=== PATIENT | male | born 1950 | race Caucasian/White ===

== ENCOUNTER 2016-07-18 16:42 | Inpatient (IN) | payer MEDICARE, MEDICAID ==
--- NOTE | 2016-07-18 17:42 | ED Physician Chart ---
Chief Complaint/HPI - Patient Information Date Seen:: 07/18/16 Time Seen:: 17:30 Chief Complaint:: G-tube malfunction History of Present Illness:: [facility]. Allergies:: Allergies Allergy/AdvReac Type Severity Reaction Status Date / Time MDX No Known Allergies - Nka Allergy Verified 05/19/15 14:04 [No Known Allergies - Nka] Historian:: Other (transfer form) Review:: Nurse's Note Reviewed, Transfer documents Reviewed Review of Systems - Review of Systems General/Constitutional: No fever, No chills Skin: No skin lesions Head: No headache Eyes: No loss of vision ENT: No earache Neck: No neck pain, No swelling Cardio Vascular: No chest pain, No palpitations Pulmonary: No SOB GI: No nausea, No vomiting Musculoskeletal: No bone or joint pain Endocrine: No polyuria, No polydipsia Psychiatric: Prior psych history Hematopoietic: No bruising, No lymphadenopathy Allergic/Immuno: No urticaria, No angioedema Neurological: No syncope, No focal symptoms, No headache Past Medical History - Past Medical History Past Medical History: Seizures, Thyroid disorder, Dementia, Other (status post pneumonia; schizophrenia; mild intellectual disability; dementia; anxiety; chronic atrial fibrillation; Parkinson's disease) Family History: Other (unavailable) Social History: Care Facility Surgical History: PEG/GTube, other (pacemaker) Psychiatricy History: Schizophrenia Family Medical History - Family Member Mother History Unknown: Yes Physical Exam - Physical Examination General/Constitutional: No distress Other Gen/Cons comments:: Nonverbal; chronically ill-appearing Head: Atraumatic Eyes: Lids, conjuctiva normal, PERRL Skin: Nl inspection, No rash, No skin lesions, No ecchymosis ENMT: External ears, nose nl, Oropharynx nl Neck: No nuchal rigidity Respiratory: Nl effort/Exclusion, Clear to Auscultation Other Respiratory comments:: Some episodes of coughing Cardio Vascular: RRR, No murmur, gallop, rubs, NL S1 S2 GI: No tenderness/rebounding/guarding Other GI comments:: Abdomen protuberant Extremities: No edema, Normal digits & nails Other Extremities comments:: Tremors both upper extremities Neuro/Psych: No focal deficits Misc: Normal back Labs/Radiology/EKG Results - Lab Results Results: Laboratory Results - last 24 hr 07/18/16 18:02 Valproic Acid 37.0 L Laboratory Results - last 24 hr 07/18/16 07/18/16 07/18/16 18:02 18:02 18:02 WBC 6.5 D RBC 4.59 Hgb 13.8 Hct 41.0 MCV 89.4 MCH 30.0 MCHC Differential 33.6 RDW 13.5 Plt Count 293 D MPV 9.8 Neutrophils % 81.8 H Lymphocytes % 12.6 L Monocytes % 5.3 Eosinophils % 0.2 Basophils % 0.1 PT INR PTT (Actin FS) Sodium 137 Potassium 3.6 Chloride 101 Carbon Dioxide 31.4 H Anion Gap 8.2 BUN 32 H Creatinine 0.5 L Est GFR ( Amer) > 60.0 Est GFR (Non-Af Amer) > 60.0 BUN/Creatinine Ratio 64.0 Glucose 135 H Calcium 8.5 L Valproic Acid 37.0 L 07/18/16 18:02 WBC RBC Hgb Hct MCV MCH MCHC Differential RDW Plt Count MPV Neutrophils % Lymphocytes % Monocytes % Eosinophils % Basophils % PT 11.8 H INR 1.12 PTT (Actin FS) 33.1 Sodium Potassium Chloride Carbon Dioxide Anion Gap BUN Creatinine Est GFR ( Amer) Est GFR (Non-Af Amer) BUN/Creatinine Ratio Glucose Calcium Valproic Acid - Radiology Results Results: KUB and chest x-ray both normal ED Septic Shock - . Is Septic Shock (SBP<90, OR Lactate>4 mmol\L) present?: No Reassessment (Disposition) - Reassessment Reassessment Condition:: Improved - Diagnosis Diagnosis:: G-tube cellulitis; paranoid schizophrenia; dementia - Patient Disposition Admitted to:: Med/Surg Spoke to:: Pierre Griffin Admitting Medical Physician:: Pierre Griffin Condition at Disposition:: Stable, Unchanged ED Discharge Plan - Patient Disposition Admit/Discharge/Transfer: Acute Care w/in this hosp Condition at Disposition: Stable
[2016-07-18 19:36] LABS: % BASOPHILS 0.1 % (0.0-2.0); % EOSINOPHILS 0.2 % (0.0-5.0); % LYMPHOCYTES 12.6 % (20.0-50.0); % MONOCYTES 5.3 % (2.0-10.0); % NEUTROPHILS 81.8 % (40.0-80.0); HEMOGLOBIN 13.8 gm/dL (13.2-17.3); MEAN CELL VOLUME 89.4 fl (80-99); MEAN CORPUSCULAR HGB CONC 33.6 pg (28.0-36.0); MEAN PLATELET VOLUME 9.8 fl; NEUTROPHILE ABSOLUTE 5.4 Th/cmm (1.8-8.0); RED BLOOD COUNT 4.59 Mil/cmm (4.30-5.70); RED CELL DISTRIBUTION WIDTH 13.5 % (11.5-20.0)
[2016-07-18 19:44] LABS: INR 1.12 (0.5-1.4); PROTHROMBIN TIME (TEST) 11.8 SECONDS (9.5-11.5)
[2016-07-18 19:45] LABS: ANION GAP 8.2 (7.0-16.0); BUN - UREA NITROGEN 32 mg/dL (7-25); CALCIUM SERUM 8.5 mg/dL (8.6-10.3); CARBON DIOXIDE 31.4 mEq/L (21.0-31.0); CHLORIDE 101 mEq/L (98-107); CREATININE - SERUM 0.5 mg/dL (0.7-1.3); GLUCOSE 135 mg/dL (70-105); POTASSIUM SERUM 3.6 mEq/L (3.5-5.1); SODIUM SERUM 137 mEq/L (136-145)
[2016-07-18 19:47] LABS: PLATELET COUNT 293 Th/cmm (150-400); WHITE BLOOD COUNT 6.5 Th/cmm (4.8-10.8)
[2016-07-18] MEDS ORDERED: Magnesium Hydroxide (MOM) 30 mL UDC GT PRN (21:19)
[2016-07-18] MEDS ORDERED: ACETAMINOPHEN GT PRN (21:19)
[2016-07-18] MEDS ORDERED: Albuterol Nebulizer 2.5mg/3mL IH PRN (21:20)
[2016-07-18] MEDS ORDERED: Ipratropium Neb 0.5 mg/2.5 mL UD IH PRN (21:20)
--- NOTE | 2016-07-18 22:18 | Admit Criteria Form ---
Admit Criteria Forms - Admit Criteria Diagnosis: CELLULITIS Clinical Indications for Admission to Inpatient Care (Place 'X' for any and all applicable criteria): Admission is indicated for ANY ONE of the following(1)(2)(3)(4)(5): [ ]I. Limb-threatening infection [ ]II. High-risk comorbid condition as indicated by ANY ONE of the following: [ ]a) Uncontrolled diabetes (eg, HbA1c greater than 10% (0.1)) [ ]b) Cirrhosis [ ]c) Neutropenia [ ]d) Asplenia [ ]e) Immunosuppression [ ]f) Symptomatic heart failure [ ]III. Failure of outpatient therapy as indicated by ALL of the following: [ ]a) Progression or no improvement after adequate trial (minimum of 48 hours, with longer period for stable lower extremity infection) [ ]b) Adequate antibiotic regimen as indicated by use of ANY ONE of the following: [ ]i) First-generation cephalosporin (e.g., cephalexin) [ ]ii) Antistaphylococcal penicillin (e.g., dicloxacillin) [ ]iii) Penicillin-allergic patient regimen (clindamycin, extended-spectrum fluoroquinolone, or doxycycline) [ ]iv) Resistant organism (eg, methicillin-resistant Staphylococcus aureus) regimen (6) [ ]c) Outpatient intravenous therapy regimen is not appropriate due to ANY ONE of the following. (7)(8)(9)(10): [ ]i) It was tried and was not successful (eg, progression of infection). [ ]ii) It is not available or cannot be arranged in a clinically appropriate time frame (e.g., the next day). [ ]iii) Clinical presentation (eg, acuity of infection, rapidity of progression, confirmed or suspected bacteremia) is judged to require ALL of the following: [ ]1) Immediate initiation of intravenous therapy ( eg, cannot wait for next day) [ ]2) Intensity of patient monitoring and observation (eg, vital sign measurement, checks for infection progression) that cannot be provided at other than inpatient level of care [ ]IV. Mental status changes [ ]V. Bacteremia [ ]. Hemodynamic instability [ ]VII. Suspected necrotizing soft tissue infection (e.g., gas in tissue)(11)( 12) [ ]VIII. Orbital infection (13)(14) [ ]IX. Associated surgical procedure (e.g., abscess drainage, debridement) not amenable to outpatient, emergency department, or observation care [ ]X. Cutaneous gangrene [ ]XI. High fever (temperature greater than 39.5 degrees C (103.1 degrees F) (oral)) not responsive to outpatient, emergency department, or observation care therapy [X]XIII. Inpatient admission required rather than observation care (Also use Cellulitis: Observation Care as appropriate) because of ANY ONE of the following : [ ]a) Periorbital or perineal infection that is severe or worsening [ ]b) Severe pain requiring acute inpatient management [ ]c) IV fluid to replace significant ongoing (e.g., for over 24 hours) losses (greater than 3L/m2 per day) [ ]d) Compartment syndrome monitoring (17) [ ]e) Strict or protective (eg, laminar flow) isolation [ ]f) Urgent debridement or skin grafting [ ]g) Bone or joint debridement [ ]h) Immediate inpatient surgery [X]i) Other condition, treatment or monitoring requiring inpatient admission Extended stay beyond goal length of stay may be needed for (1)(18): [ ]a) Necrotizing soft tissue infection or fasciitis [ ]b) Gram-negative infection [ ]c) Methicillin-resistant Staphylococcal aureus (MRSA) infection [ ]d) Peripheral venous insufficiency with cellulitis [ ]e) Extensive edema [ ]f) Sepsis or continued Hemodynamic instability [ ]g) Continued high fever or mental status change [ ]h) Bacteremia [ ]i) Active serious comorbid conditions ( eg, heart failure, renal insufficiency) The original [facility] [employer] content created by [facility] [employer] has been revised. The portions of the content which have been revised are identified through the use of italic text or in bold, and [facility] has neither reviewed nor approved the modified material. All other unmodified content is copyright [facility] Please see references footnoted in the original [facility] edition 2016 Admit Criteria Met?: Yes
[2016-07-19] MEDS: Ampicillin Sodium/Sulbactam 3 GM in Sodium Chloride 0.9% 100 ML IV SCH ×5 (00:20→23:25)
[2016-07-19] MEDS: D5-0.45NS 1,000 ML IV SCH ×2 (00:20→17:51)
[2016-07-19] MEDS: Dextromethorphan/Quinidine 20mg/10mg Cap PO SCH ×3 (01:44→17:41)
[2016-07-19] MEDS: Morphine Sulfate 2 mg/mL 1mL Syr IVP PRN (04:24)
[2016-07-19] MEDS ORDERED: Dextromethorphan/Quinidine 20mg/10mg Cap PO SCH (09:00)
--- NOTE | 2016-07-19 09:43 | Diagnostic Imaging Report ---
CHEST X-RAY: AP view INDICATION: Cough COMPARISON: 05/23/2015 FINDINGS: Left chest wall pacemaker is stable. Increased bibasilar lung markings are noted. No focal consolidation or definite effusions. Cardiomegaly is noted. The osseous structures are intact. IMPRESSION: Increased bibasilar lung markings which may due to atelectasis. Underlying infiltrate is less likely. Clinical correlation is recommended. Cardiomegaly Stable pacemaker.
--- NOTE | 2016-07-19 09:45 | Diagnostic Imaging Report ---
KUB History: Abdominal pain Comparison: None Findings: Gas-filled loops of bowel are noted with distal fecal impaction. A percutaneous feeding tube is noted. Degenerative changes of the spine are noted. IMPRESSION: Distal fecal impaction with generalized gas-filled loops of bowel noted proximally.
[2016-07-19] MEDS: Levothyroxine 0.1 Mg Tab GT SCH (09:50)
[2016-07-19] MEDS: Pantoprazole 40 mg EC Tab PO SCH ×2 (09:50→17:41)
[2016-07-19] MEDS: Multivitamin 5 mL UDC GT SCH (09:50)
--- NOTE | 2016-07-19 20:08 | History & Physical ---
ADMIT DATE: 07/19/2016 CHIEF COMPLAINT: G-tube redness and malfunction. HISTORY OF PRESENT ILLNESS: This is a 66-year-old male with history of partial dementia, hypertension, hypothyroidism, paroxysmal atrial fibrillation, status post pacemaker, history of stroke, was admitted from nursing facility secondary to malfunctioning G-tube. The patient was evaluated in the ER. There is pus coming out from the G-tube area with redness. The patient was diagnosed with cellulitis and admitted for further management. PAST MEDICAL HISTORY: As mentioned in history present illness. PAST SURGICAL HISTORY: Status post pacemaker and G-tube placement. ALLERGIES: No known drug allergies. MEDICATIONS: The patient is on Tylenol, ascorbic acid, BuSpar, Sinemet, Nuedexta, ____, Synthroid, magnesium ____, Depakote. FAMILY HISTORY: Noncontributory. SOCIAL HISTORY: The patient is a longterm patient requiring 24-hour total care. REVIEW OF SYSTEMS: This is limited secondary to pain ____ we will try to obtain more detailed review of systems at a later date by talking to family members ____ service desk analyst [phone]. There is a niece [phone]. I will also try to get information from the nursing staff at ____ [facility], as well as from Dr. Gale who normally follows the patient. PHYSICAL EXAMINATION: VITAL SIGNS: Blood pressure 129/73, respirations 19, pulse 91, and temperature is 97.3. GENERAL: Elderly male, appears stated age, morbidly obese. NECK: Supple. No mass. LUNGS: Equal breath sounds, few rhonchi. HEART: Regular rhythm without appreciable murmurs. ABDOMEN: Soft, nontender, and globular. EXTREMITIES: Positive erythema and G-tube site. NEUROLOGIC: Limited, moving all extremities. LABORATORY DATA: WBC ____, hemoglobin 13, platelets 293. INR 1.12. Sodium 137, potassium 3.6, BUN 35, ____ creatinine 0.5, and blood sugar 135. ASSESSMENT AND PLAN: G-tube cellulitis, dehydration, renal insufficiency, possible pneumonia, dementia, hypertension, hypothyroidism, paroxysmal atrial fibrillation, and history of stroke. We will continue the patient on IV antibiotic and continue IV hydration. GI has been consulted. We will review the patient's chest x-ray which showed possible infiltrate. Continue oxygen and bronchodilator treatment. We will continue to monitor the patient closely. [facility]# [id number]
[2016-07-19] MEDS ORDERED: Diatrizoate Meglumine/Diatri 30 mL Sol ONE (20:20)
[2016-07-20] MEDS: Ampicillin Sodium/Sulbactam 3 GM in Sodium Chloride 0.9% 100 ML IV SCH ×4 (05:34→23:12)
[2016-07-20 06:41] LABS: % BASOPHILS 3.5 % (0.0-2.0); % EOSINOPHILS 0.2 % (0.0-5.0); % LYMPHOCYTES 11.5 % (20.0-50.0); % MONOCYTES 7.1 % (2.0-10.0); % NEUTROPHILS 77.7 % (40.0-80.0); HEMATOCRIT 39.2 % (39.0-49.0); HEMOGLOBIN 13.7 gm/dL (13.2-17.3); MEAN CORPUSCULAR HGB CONC 34.8 pg (28.0-36.0); MEAN PLATELET VOLUME 8.6 fl; NEUTROPHILE ABSOLUTE 6.4 Th/cmm (1.8-8.0); PLATELET COUNT 315 Th/cmm (150-400)
[2016-07-20 07:00] LABS: ALB/GLOB RATIO 0.7 (1.0-1.8); ALKALINE PHOSPHATASE 69 U/L (34-104); ANION GAP 2.8 (7.0-16.0); BILIRUBIN,TOTAL 0.6 mg/dL (0.3-1.0); BUN - UREA NITROGEN 25 mg/dL (7-25); BUN/CREATININE RATIO 62.5; CALCIUM SERUM 7.8 mg/dL (8.6-10.3); CARBON DIOXIDE 33.4 mEq/L (21.0-31.0); CHLORIDE 106 mEq/L (98-107); CREATININE - SERUM 0.4 mg/dL (0.7-1.3); GLUCOSE 149 mg/dL (70-105); MAGNESIUM 2.2 mg/dL (1.9-2.7); POTASSIUM SERUM 3.2 mEq/L (3.5-5.1); SGOT 12 U/L (13-39); SGPT/ALT 5 U/L (7-52); SODIUM SERUM 139 mEq/L (136-145)
[2016-07-20 07:36] LABS: WHITE BLOOD COUNT 8.2 Th/cmm (4.8-10.8)
[2016-07-20] MEDS: Dextromethorphan/Quinidine 20mg/10mg Cap PO SCH ×2 (09:45→16:34)
[2016-07-20] MEDS: Pantoprazole 40 mg EC Tab PO SCH ×2 (09:45→16:33)
[2016-07-20] MEDS: Levothyroxine 0.1 Mg Tab GT SCH (09:47)
[2016-07-20] MEDS: Multivitamin 5 mL UDC GT SCH (10:07)
--- NOTE | 2016-07-20 10:07 | Diagnostic Imaging Report ---
History: Shortness of breath Comparison: 07/18/2016 Findings: Heart size is enlarged. Pacemaker leads present. There is some atelectasis Impression: Cardiomegaly. Slight atelectasis right lower lung zone
--- NOTE | 2016-07-20 10:11 | Diagnostic Imaging Report ---
History: Gastrostomy tube placement Findings: Small noncontrast injected through gastrostomy tube. Contrast fills the stomach and duodenal bulb. Impression: Tip of the gastrostomy tube is intraluminal.
[2016-07-20] MEDS: D5-0.45NS 1,000 ML IV SCH (10:59)
[2016-07-20] MEDS: Morphine Sulfate 2 mg/mL 1mL Syr IVP PRN ×2 (13:45→18:09)
[2016-07-20] MEDS ORDERED: Potassium Chloride 20 mEq ER Tab PO ONE (14:53)
--- NOTE | 2016-07-20 14:55 | Internal Medicine Prog Note ---
Internal Medicine Subjective - Subjective Patient seen and examined:: with staff, chart reviewed Patient is:: asleep, interactive Patient Complaints of:: congestion Per staff patient is:: confused (diarrhea per staff) Internal Medicine Objective - Results Result Diagrams: 07/20/16 06:25 07/20/16 06:25 Recent Labs: Laboratory Last Values WBC 8.2 Th/cmm (4.8-10.8) D 07/20/16 06:25 RBC 4.40 Mil/cmm (4.30-5.70) 07/20/16 06:25 Hgb 13.7 gm/dL (13.2-17.3) 07/20/16 06:25 Hct 39.2 % (39.0-49.0) 07/20/16 06:25 MCV 89.0 fl (80-99) 07/20/16 06:25 MCH 31.0 pg (26.0-30.0) H 07/20/16 06:25 MCHC Differential 34.8 pg (28.0-36.0) 07/20/16 06:25 RDW 14.0 % (11.5-20.0) 07/20/16 06:25 Plt Count 315 Th/cmm (150-400) 07/20/16 06:25 MPV 8.6 fl 07/20/16 06:25 Neutrophils % 77.7 % (40.0-80.0) 07/20/16 06:25 Lymphocytes % 11.5 % (20.0-50.0) L 07/20/16 06:25 Monocytes % 7.1 % (2.0-10.0) 07/20/16 06:25 Eosinophils % 0.2 % (0.0-5.0) 07/20/16 06:25 Basophils % 3.5 % (0.0-2.0) H 07/20/16 06:25 PT 11.8 SECONDS (9.5-11.5) H 07/18/16 18:02 INR 1.12 (0.5-1.4) 07/18/16 18:02 PTT (Actin FS) 33.1 SECONDS (26.0-38.0) 07/18/16 18:02 Sodium 139 mEq/L (136-145) 07/20/16 06:25 Potassium 3.2 mEq/L (3.5-5.1) L 07/20/16 06:25 Chloride 106 mEq/L (98-107) 07/20/16 06:25 Carbon Dioxide 33.4 mEq/L (21.0-31.0) H 07/20/16 06:25 Anion Gap 2.8 (7.0-16.0) L 07/20/16 06:25 BUN 25 mg/dL (7-25) 07/20/16 06:25 Creatinine 0.4 mg/dL (0.7-1.3) L 07/20/16 06:25 Est GFR ( Amer) > 60.0 ml/min (>90) 07/20/16 06:25 Est GFR (Non-Af Amer) > 60.0 ml/min 07/20/16 06:25 BUN/Creatinine Ratio 62.5 07/20/16 06:25 Glucose 149 mg/dL (70-105) H 07/20/16 06:25 Calcium 7.8 mg/dL (8.6-10.3) L 07/20/16 06:25 Magnesium 2.2 mg/dL (1.9-2.7) 07/20/16 06:25 Total Bilirubin 0.6 mg/dL (0.3-1.0) 07/20/16 06:25 AST 12 U/L (13-39) L 07/20/16 06:25 ALT 5 U/L (7-52) L 07/20/16 06:25 Alkaline Phosphatase 69 U/L (34-104) 07/20/16 06:25 Ammonia 52 umol/L (16-53) 07/20/16 06:25 Total Protein 5.3 gm/dL (6.0-8.3) L 07/20/16 06:25 Albumin 2.1 gm/dL (4.2-5.5) L 07/20/16 06:25 Globulin 3.2 gm/dL 07/20/16 06:25 Albumin/Globulin Ratio 0.7 (1.0-1.8) L 07/20/16 06:25 Valproic Acid 37.0 ug/mL (50.0-100.0) L 07/18/16 18:02 - Physical Exam Vitals and I&O: Vital Signs Temp 97.3 F 07/20/16 08:00 Pulse 97 07/20/16 08:05 Resp 18 07/20/16 08:05 BP 126/66 07/20/16 08:00 Pulse Ox 93 07/20/16 08:05 Intake & Output 07/19/16 07/20/16 07/20/16 18:59 06:59 18:59 Intake Total 1300 1815 Output Total 1 Balance 1300 1814 Intake: Intake, IV Amount 1300 1200 Ampicillin Sodium/ 300 200 Sulbactam 3 gm In Sodium Chloride 0.9% 100 ml @ 100 mls/hr IV Q6HR [facility] Rx #:[id number] D5-0.45NS 1,000 ml @ 80 1000 1000 mls/hr IV .[id number] [facility] Rx #:[id number] Oral 0 Tube Feeding 515 Other 100 Output: Urine/Stool Mix 1 Other: # Voids 2 # Bowel Movements 1 Stool Characteristics Liquid Liquid Liquid Brown Brown Brown Active Medications: Current Medications Acetaminophen (Tylenol 650mg/20.3ml Suspension) 650 mg GT Q4H PRN PRN Reason: PAIN OR TEMP > 101.0 Last Admin: 07/20/16 02:33 Dose: 650 mg Albuterol Sulfate (Albuterol 2.5mg/3ml Neb Ud) 2.5 mg IH Q2HR PRN PRN Reason: Shortness of Breath or Wheeze Stop: 09/16/16 21:19 Ascorbic Acid (Vitamin C) 500 mg GT DAILY [facility] Stop: 09/17/16 08:59 Last Admin: 07/20/16 09:45 Dose: 500 mg Buspirone HCl (Buspar) 10 mg GT BID [facility] Stop: 09/17/16 08:59 Last Admin: 07/20/16 09:44 Dose: 10 mg Carbidopa/Levodopa (Sinemet 25mg-100 Mg) 2 tab GT TID [facility] Stop: 09/17/16 08:59 Last Admin: 07/20/16 13:29 Dose: 2 tab Dextromethorphan/Quinidine (Nuedexta 20mg-10mg) 1 cap PO BID [facility] Stop: 09/17/16 01:59 Last Admin: 07/20/16 09:45 Dose: 1 cap Fludrocortisone Acetate (Florinef) 0.1 mg GT DAILY [facility] Stop: 09/17/16 08:59 Last Admin: 07/20/16 09:45 Dose: 0.1 mg Heparin Sodium (Porcine) (Heparin) 5,000 units SUBQ Q12HR [facility]ILI Stop: 09/17/16 08:59 Last Admin: 07/19/16 22:27 Dose: 5,000 units Dextrose/Sodium Chloride (D5-0.45ns) 1,000 mls @ 80 mls/hr IV .[id number] LILI Stop: 09/16/16 21:29 Last Admin: 07/20/16 10:59 Dose: 80 mls/hr Ampicillin Sodium/Sulbactam (Sodium 3 gm/ Sodium Chloride) 100 mls @ 100 mls/ hr IV Q6HR LILI Stop: 09/17/16 00:00 Last Admin: 07/20/16 11:57 Dose: 100 mls/hr Ipratropium [place] (Atrovent Neb 0.5mg/2.5ml) 0.5 mg IH Q2HR PRN PRN Reason: Shortness of Breath or Wheeze Stop: 09/16/16 21:19 Levothyroxine Sodium (Synthroid) 0.1 mg GT DAILY [facility] Stop: 09/17/16 08:59 Last Admin: 07/20/16 09:47 Dose: 0.1 mg Magnesium Hydroxide (Milk Of Magnesia) 30 ml GT HS PRN PRN Reason: Constipation Stop: 09/16/16 21:18 Morphine Sulfate (Morphine) 2 mg IVP Q4HR PRN PRN Reason: Pain (Severe) Stop: 09/16/16 21:19 Last Admin: 07/20/16 13:45 Dose: 2 mg Multivitamins/Vitamin C (Theragran) 5 ml GT DAILY [facility] Stop: 09/17/16 08:59 Last Admin: 07/20/16 10:07 Dose: Not Given Ondansetron HCl (Zofran) 4 mg IV Q8H PRN PRN Reason: Nausea / Vomiting Stop: 09/16/16 21:19 Pantoprazole Sodium (Protonix) 40 mg PO BID [facility] Stop: 09/17/16 08:59 Last Admin: 07/20/16 09:45 Dose: 40 mg Terazosin HCl (Hytrin) 1 mg GT HS LILI Stop: 09/17/16 20:59 Last Admin: 07/19/16 22:26 Dose: 1 mg Valproate Sodium (Depakene) 750 mg GT BID LILI PRN Reason: Protocol Stop: 09/17/16 08:59 Last Admin: 07/20/16 09:45 Dose: 750 mg General: demented HEENT: NC/AT, PERRLA Neck: Supple, No JVD Lungs: congested Cardiovascular: RRR, Normal S1, Normal S2 Abdomen: soft non-tender, globular, +GT, positive bowel sound Extremities: excoriation, contracture Neurological: unsteady, unable to follow command - Procedures Procedures: Procedures Procedure Code Date CHEST X-RAY NEC 87.49 12/05/[address] GASTROSTOMY TUBE 228[address] 05/19/15 EXTIRPATION OF MATTER FROM STOMACH, ENDO [id number] 05/19/15 INDIVID PSYCHOTHERAP NEC 94.39 05/19/08 INITIAL INSERT OF SING CHAMB DEV, RATE RESPONSIVE 37.82 12/05/08 INITIAL INSERT OF TRANS. LEADS INTO VENTRICLE 37.71 12/05/08 INSERT HEART PM VENTRICULAR 04596 12/05/08 INSERTION OF FEEDING DEVICE INTO STOMACH, ENDO [id number] 05/19/15 OTHER GROUP THERAPY 94.44 02/13/11 PERCUTANEOUS [ENDOSCOPIC] GASTROSTOMY [PEG] 43.11 10/03/13 RECREATIONAL THERAPY 93.81 02/13/11 VENOUS CUTDOWN 38.94 12/05/08 X-RAY & PACEMAKER INSERTION [id number] 12/05/08 Internal Medicine Assmt/Plan - Assessment Assessment: gt cellulitis dehydration ri poss pnm cva htn pafib - Plan Plan: cont on iv richard will check culture cont on iv hydration cpm dw rn see orders Nutritional Asmnt/Malnutr-PDOC - Dietary Evaluation Malnutrition Findings (Please click <Entered> for more info): Nutritional Asmnt/Malnutrition Start: 07/19/16 14: 00 Text: Status: Complete Freq: Document 07/19/16 14:00 GSUN (Rec: 07/19/16 14:12 MARCE [id number]) Nutritional Asmnt/Malnutrition Patient General Information Nutritional Screening High Risk Screening Diagnosis ER: g-tube malfunction, g-tube cellulitis Pertinent Medical Hx/Surgical Hx ER: seizures, thyroid disorder , dementia Parkinson's, hx pneumonia, schizophrenia, mild intellectual disability, anxiety, chronic atrial fibrillation Subjective Information 66 year old male from SNF. Pt was resting with eyes closed, smiled at RD upon name call, non-verbal. [facility]: Jevity 1.2 at 65ml/ hr x 20hrs, providing 1560kcal . No sifnigicant wasting noted . GI consult pending. Current Diet Order/ Nutrition Support NPO Pertinent Medications Vitamin C D5, Synthroid, MOM, Morphine, Theragran, Zofran, Protonix Pertinent Labs 07/18: glucose 135H Nutritional Hx/Data Height 1.73 m Height (Calculated Centimeters) 172.7 Current Weight (lbs) 102.058 kg Weight (Calculated Kilograms) 102.1 Weight (Calculated Grams) 257804.3 [place] Body Weight 154 Weight Status Obese GI Symptoms Skin Integrity/Comment: Dileep 13. Skin intact. Estimated Nutritional Goals Calories/Kcals/Kg IBW 154lb/70kg Kcals Calculated 1750-2100kcal (25-30kcal/kg) Protein g/kg: IBW Protein Calculated 70g (1g/kg) Fluid: ml 1750-2100ml (1ml/kcal) Nutritional Problem 1. Problem Problem Inadequate intake from enternal nutrition infusion related to Etiology g-tube malfunction aeb Signs/Symptoms: currently NPO, GI consult pending Intervention/Recommendation Comments 1. When g-tube intact to resume feeding, recommend Fiebrsource 60ml/hrs x 24hrs, providing 1728kcal, 78g protein, 1164ml free water. Water flush 150ml q6hrs. Expected Outcomes/Goals Expected Outcomes/Goals 1. Pt to meet at least 100% of lower end of estimated nutritional needs on tube feeding with tolerance.
--- NOTE | 2016-07-20 23:41 | Consultation ---
DATE OF CONSULTATION: 07/19/2016 GASTROINTESTINAL CONSULTATION REASON FOR CONSULTATION: PEG tube malfunction, fecal impaction. HISTORY OF PRESENT ILLNESS: A 66-year-old male with past medical history significant for seizures, dementia, dysphagia with prior PEG, MR, AFib, and Parkinson's, who presents from his nursing facility with malfunctioning G-tube, appears the external tubing has been leaking, subsequently is not being used currently. The patient also noted on imaging to have evidence of fecal impaction as well. PAST MEDICAL HISTORY: As per HPI. PAST SURGICAL HISTORY: Prior PEG placement and pacemaker. SOCIAL HISTORY: The patient is from long-term care facility. No recent tobacco, alcohol, or drugs. FAMILY HISTORY: Unknown. REVIEW OF SYSTEMS: Unable to obtain currently given the patient's mental status. PHYSICAL EXAMINATION: VITAL SIGNS: Temperature is 98, pulse is 95, respirations 18, blood pressure 122/69. GENERAL: In no acute distress. CARDIOVASCULAR: Regular rate and rhythm. ABDOMEN: Appears G-tube is intact. The external tubing appears cracked. Soft. LABORATORY DATA: White count 6.5, hemoglobin 13.8, platelets are 293. INR is 1.12. IMAGING: The patient had a KUB that shows gas filled loops with distal fecal impaction. G-tube is noted. ASSESSMENT AND PLAN: This is a 66-year-old male with history of underlying Parkinson's, dementia, MR, seizure disorder, atrial fibrillation, here with malfunctioning of the G-tube and fecal impaction, G-tube was replaced at bedside today. We will check a repeat KUB with Gastrografin to confirm the location of G-tube. If adequate can start ____ feedings. For fecal impaction, would give MiraLax through the G-tube and consider enema as well. Thank you for this consult and allowing us to participate in the care of this patient. JOB# [id number]
[2016-07-21] MEDS: Ampicillin Sodium/Sulbactam 3 GM in Sodium Chloride 0.9% 100 ML IV SCH ×4 (05:27→23:27)
[2016-07-21] MEDS: Levothyroxine 0.1 Mg Tab GT SCH (09:36)
[2016-07-21] MEDS: Pantoprazole 40 mg EC Tab PO SCH ×2 (09:36→16:56)
[2016-07-21] MEDS: Dextromethorphan/Quinidine 20mg/10mg Cap PO SCH ×2 (09:36→16:56)
[2016-07-21] MEDS: Multivitamin 5 mL UDC GT SCH (11:26)
--- NOTE | 2016-07-21 22:01 | Internal Medicine Prog Note ---
Internal Medicine Subjective - Subjective Patient seen and examined:: with staff, chart reviewed Patient is:: awake, verbal, interactive Per staff patient is:: no adverse event, confused Internal Medicine Objective - Results Result Diagrams: 07/20/16 06:25 07/20/16 06:25 Recent Labs: Laboratory Last Values WBC 8.2 Th/cmm (4.8-10.8) D 07/20/16 06:25 RBC 4.40 Mil/cmm (4.30-5.70) 07/20/16 06:25 Hgb 13.7 gm/dL (13.2-17.3) 07/20/16 06:25 Hct 39.2 % (39.0-49.0) 07/20/16 06:25 MCV 89.0 fl (80-99) 07/20/16 06:25 MCH 31.0 pg (26.0-30.0) H 07/20/16 06:25 MCHC Differential 34.8 pg (28.0-36.0) 07/20/16 06:25 RDW 14.0 % (11.5-20.0) 07/20/16 06:25 Plt Count 315 Th/cmm (150-400) 07/20/16 06:25 MPV 8.6 fl 07/20/16 06:25 Neutrophils % 77.7 % (40.0-80.0) 07/20/16 06:25 Lymphocytes % 11.5 % (20.0-50.0) L 07/20/16 06:25 Monocytes % 7.1 % (2.0-10.0) 07/20/16 06:25 Eosinophils % 0.2 % (0.0-5.0) 07/20/16 06:25 Basophils % 3.5 % (0.0-2.0) H 07/20/16 06:25 PT 11.8 SECONDS (9.5-11.5) H 07/18/16 18:02 INR 1.12 (0.5-1.4) 07/18/16 18:02 PTT (Actin FS) 33.1 SECONDS (26.0-38.0) 07/18/16 18:02 Sodium 139 mEq/L (136-145) 07/20/16 06:25 Potassium 3.2 mEq/L (3.5-5.1) L 07/20/16 06:25 Chloride 106 mEq/L (98-107) 07/20/16 06:25 Carbon Dioxide 33.4 mEq/L (21.0-31.0) H 07/20/16 06:25 Anion Gap 2.8 (7.0-16.0) L 07/20/16 06:25 BUN 25 mg/dL (7-25) 07/20/16 06:25 Creatinine 0.4 mg/dL (0.7-1.3) L 07/20/16 06:25 Est GFR ( Amer) > 60.0 ml/min (>90) 07/20/16 06:25 Est GFR (Non-Af Amer) > 60.0 ml/min 07/20/16 06:25 BUN/Creatinine Ratio 62.5 07/20/16 06:25 Glucose 149 mg/dL (70-105) H 07/20/16 06:25 Calcium 7.8 mg/dL (8.6-10.3) L 07/20/16 06:25 Magnesium 2.2 mg/dL (1.9-2.7) 07/20/16 06:25 Total Bilirubin 0.6 mg/dL (0.3-1.0) 07/20/16 06:25 AST 12 U/L (13-39) L 07/20/16 06:25 ALT 5 U/L (7-52) L 07/20/16 06:25 Alkaline Phosphatase 69 U/L (34-104) 07/20/16 06:25 Ammonia 52 umol/L (16-53) 07/20/16 06:25 Total Protein 5.3 gm/dL (6.0-8.3) L 07/20/16 06:25 Albumin 2.1 gm/dL (4.2-5.5) L 07/20/16 06:25 Globulin 3.2 gm/dL 07/20/16 06:25 Albumin/Globulin Ratio 0.7 (1.0-1.8) L 07/20/16 06:25 Valproic Acid 37.0 ug/mL (50.0-100.0) L 07/18/16 18:02 - Physical Exam Vitals and I&O: Vital Signs Temp 97.5 F 07/21/16 20:00 Pulse 114 07/21/16 20:54 Resp 18 07/21/16 20:00 BP 112/89 07/21/16 20:54 Pulse Ox 95 07/21/16 20:00 Intake & Output 07/21/16 07/21/16 07/22/16 06:59 18:59 06:59 Intake Total 580 880 Balance 580 880 Intake: Intake, IV Amount 200 100 Ampicillin Sodium/ 200 100 Sulbactam 3 gm In Sodium Chloride 0.9% 100 ml @ 100 mls/hr IV Q6HR [facility] Rx #:[id number] Oral 0 Tube Feeding 280 480 Other 100 300 Other: # Voids 2 4 # Bowel Movements 2 1 Stool Characteristics Liquid Liquid Liquid Brown Brown Brown Active Medications: Current Medications Acetaminophen (Tylenol 650mg/20.3ml Suspension) 650 mg GT Q4H PRN PRN Reason: PAIN OR TEMP > 101.0 Last Admin: 07/20/16 23:11 Dose: 650 mg Albuterol Sulfate (Albuterol 2.5mg/3ml Neb Ud) 2.5 mg IH Q2HR PRN PRN Reason: Shortness of Breath or Wheeze Stop: 09/16/16 21:19 Ascorbic Acid (Vitamin C) 500 mg GT DAILY [facility] Stop: 09/17/16 08:59 Last Admin: 07/21/16 09:35 Dose: 500 mg Buspirone HCl (Buspar) 10 mg GT BID [facility] Stop: 09/17/16 08:59 Last Admin: 07/21/16 16:56 Dose: 10 mg Carbidopa/Levodopa (Sinemet 25mg-100 Mg) 2 tab GT TID [facility] Stop: 09/17/16 08:59 Last Admin: 07/21/16 20:54 Dose: 2 tab Dextromethorphan/Quinidine (Nuedexta 20mg-10mg) 1 cap PO BID [facility] Stop: 09/17/16 01:59 Last Admin: 07/21/16 16:56 Dose: 1 cap Fludrocortisone Acetate (Florinef) 0.1 mg GT DAILY [facility] Stop: 09/17/16 08:59 Last Admin: 07/21/16 09:36 Dose: 0.1 mg Ampicillin Sodium/Sulbactam (Sodium 3 gm/ Sodium Chloride) 100 mls @ 100 mls/ hr IV Q6HR [facility] Stop: 09/17/16 00:00 Last Admin: 07/21/16 19:03 Dose: 100 mls/hr Ipratropium [place] (Atrovent Neb 0.5mg/2.5ml) 0.5 mg IH Q2HR PRN PRN Reason: Shortness of Breath or Wheeze Stop: 09/16/16 21:19 Levothyroxine Sodium (Synthroid) 0.1 mg GT DAILY [facility] Stop: 09/17/16 08:59 Last Admin: 07/21/16 09:36 Dose: 0.1 mg Loperamide HCl (Imodium) 4 mg PO DAILY PRN PRN Reason: Diarrhea Stop: 09/18/16 14:51 Last Admin: 07/20/16 16:34 Dose: 4 mg Magnesium Hydroxide (Milk Of Magnesia) 30 ml GT HS PRN PRN Reason: Constipation Stop: 09/16/16 21:18 Morphine Sulfate (Morphine) 2 mg IVP Q4HR PRN PRN Reason: Pain (Severe) Stop: 09/16/16 21:19 Last Admin: 07/20/16 18:09 Dose: 2 mg Multivitamins/Vitamin C (Theragran) 5 ml GT DAILY [facility] Stop: 09/17/16 08:59 Last Admin: 07/21/16 11:26 Dose: Not Given Ondansetron HCl (Zofran) 4 mg IV Q8H PRN PRN Reason: Nausea / Vomiting Stop: 09/16/16 21:19 Pantoprazole Sodium (Protonix) 40 mg PO BID [facility] Stop: 09/17/16 08:59 Last Admin: 07/21/16 16:56 Dose: 40 mg Terazosin HCl (Hytrin) 1 mg GT HS [facility] Stop: 09/17/16 20:59 Last Admin: 07/21/16 20:54 Dose: 1 mg Valproate Sodium (Depakene) 750 mg GT BID [facility] PRN Reason: Protocol Stop: 09/17/16 08:59 Last Admin: 07/21/16 16:56 Dose: 750 mg General: lethargic HEENT: NC/AT, PERRLA Neck: Supple, No JVD Lungs: congested Cardiovascular: RRR, Normal S1, Normal S2 Abdomen: globular, +GT, positive bowel sound Extremities: excoriation Neurological: no change, lethargic - Procedures Procedures: Procedures Procedure Code Date CHEST X-RAY NEC 87.49 12/05/[address] GASTROSTOMY TUBE 33341 05/19/15 EXTIRPATION OF MATTER FROM STOMACH, ENDO [id number] 05/19/15 INDIVID PSYCHOTHERAP NEC 94.39 05/19/08 INITIAL INSERT OF SING WALDOB DEV, RATE RESPONSIVE 37.82 12/05/08 INITIAL INSERT OF TRANS. LEADS INTO VENTRICLE 37.71 12/05/08 INSERT HEART PM VENTRICULAR 97931 12/05/08 INSERTION OF FEEDING DEVICE INTO STOMACH, ENDO [id number] 05/19/15 OTHER GROUP THERAPY 94.44 02/13/11 PERCUTANEOUS [ENDOSCOPIC] GASTROSTOMY [PEG] 43.11 10/03/13 RECREATIONAL THERAPY 93.81 02/13/11 VENOUS CUTDOWN 38.94 12/05/08 X-RAY & PACEMAKER INSERTION 16780 12/05/08 Internal Medicine Assmt/Plan - Assessment Assessment: gt cellulitis dehydration ri poss pnm cva htn pafib - Plan Plan: cont on iv richard will check culture cont on iv hydration cpm dw rn see orders Nutritional Asmnt/Malnutr-PDOC - Dietary Evaluation Malnutrition Findings (Please click <Entered> for more info): Nutritional Asmnt/Malnutrition Start: 07/19/16 14: 00 Text: Status: Complete Freq: Document 07/19/16 14:00 GSUN (Rec: 07/19/16 14:12 [id number]) Nutritional Asmnt/Malnutrition Patient General Information Nutritional Screening High Risk Screening Diagnosis ER: g-tube malfunction, g-tube cellulitis Pertinent Medical Hx/Surgical Hx ER: seizures, thyroid disorder , dementia Parkinson's, hx pneumonia, schizophrenia, mild intellectual disability, anxiety, chronic atrial fibrillation Subjective Information 66 year old male from SNF. Pt was resting with eyes closed, smiled at RD upon name call, non-verbal. [facility]: Jevity 1.2 at 65ml/ hr x 20hrs, providing 1560kcal . No sifnigicant wasting noted . GI consult pending. Current Diet Order/ Nutrition Support NPO Pertinent Medications Vitamin C D5, Synthroid, MOM, Morphine, Theragran, Zofran, Protonix Pertinent Labs 07/18: glucose 135H Nutritional Hx/Data Height 1.73 m Height (Calculated Centimeters) 172.7 Current Weight (lbs) 102.058 kg Weight (Calculated Kilograms) 102.1 Weight (Calculated Grams) 867787.3 [place] Body Weight 154 Weight Status Obese GI Symptoms Skin Integrity/Comment: Dileep 13. Skin intact. Estimated Nutritional Goals Calories/Kcals/Kg IBW 154lb/70kg Kcals Calculated 1750-2100kcal (25-30kcal/kg) Protein g/kg: IBW Protein Calculated 70g (1g/kg) Fluid: ml 1750-2100ml (1ml/kcal) Nutritional Problem 1. Problem Problem Inadequate intake from enternal nutrition infusion related to Etiology g-tube malfunction aeb Signs/Symptoms: currently NPO, GI consult pending Intervention/Recommendation Comments 1. When g-tube intact to resume feeding, recommend Fiebrsource 60ml/hrs x 24hrs, providing 1728kcal, 78g protein, 1164ml free water. Water flush 150ml q6hrs. Expected Outcomes/Goals Expected Outcomes/Goals 1. Pt to meet at least 100% of lower end of estimated nutritional needs on tube feeding with tolerance.
[2016-07-21] MEDS: Morphine Sulfate 2 mg/mL 1mL Syr IVP PRN (23:24)
[2016-07-22] MEDS: Ampicillin Sodium/Sulbactam 3 GM in Sodium Chloride 0.9% 100 ML IV SCH ×2 (05:30→12:01)
[2016-07-22 06:17] LABS: % BASOPHILS 3.6 % (0.0-2.0); % EOSINOPHILS 0.4 % (0.0-5.0); % LYMPHOCYTES 14.3 % (20.0-50.0); % MONOCYTES 6.5 % (2.0-10.0); % NEUTROPHILS 75.2 % (40.0-80.0); HEMATOCRIT 38.4 % (39.0-49.0); HEMOGLOBIN 13.1 gm/dL (13.2-17.3); MEAN CELL VOLUME 89.2 fl (80-99); MEAN CORPUSCULAR HEMOGLOBIN 30.4 pg (26.0-30.0); MEAN CORPUSCULAR HGB CONC 34.1 pg (28.0-36.0); MEAN PLATELET VOLUME 7.9 fl; NEUTROPHILE ABSOLUTE 8.5 Th/cmm (1.8-8.0); PLATELET COUNT 358 Th/cmm (150-400); RED BLOOD COUNT 4.31 Mil/cmm (4.30-5.70); RED CELL DISTRIBUTION WIDTH 13.9 % (11.5-20.0)
[2016-07-22 06:37] LABS: ANION GAP 1.4 (7.0-16.0); BUN - UREA NITROGEN 20 mg/dL (7-25); CALCIUM SERUM 7.6 mg/dL (8.6-10.3); CARBON DIOXIDE 36.3 mEq/L (21.0-31.0); CHLORIDE 108 mEq/L (98-107); CREATININE - SERUM 0.4 mg/dL (0.7-1.3); GLUCOSE 131 mg/dL (70-105); MAGNESIUM 2.1 mg/dL (1.9-2.7); POTASSIUM SERUM 3.7 mEq/L (3.5-5.1); SODIUM SERUM 142 mEq/L (136-145)
[2016-07-22 07:12] LABS: WHITE BLOOD COUNT 11.2 Th/cmm (4.8-10.8)
[2016-07-22] MEDS: Pantoprazole 40 mg EC Tab PO SCH (08:23)
[2016-07-22] MEDS: Dextromethorphan/Quinidine 20mg/10mg Cap PO SCH (08:23)
[2016-07-22] MEDS: Levothyroxine 0.1 Mg Tab GT SCH (08:23)
[2016-07-22] MEDS: Multivitamin 5 mL UDC GT SCH (11:07)
[2016-07-22] MEDS ORDERED: Amoxicillin/Clavulanat 875/125 Tab PO SCH (17:00)
--- NOTE | 2016-07-22 20:17 | Discharge Summary ---
DATE OF DISCHARGE: 07/22/2016 CHIEF COMPLAINT: G-tube redness and malfunctioning. FINAL DIAGNOSES: G-tube cellulitis, malfunctioning G-tube, which was replaced, renal insufficiency, dehydration, dementia, hypertension, hypothyroidism, paroxysmal atrial fibrillation, and history of stroke. HISTORY OF PRESENT ILLNESS: This is a 66-year-old male with history of dementia, hypertension, hypothyroidism, paroxysmal atrial fibrillation status post pacemaker, and stroke, who was admitted from nursing facility secondary to pus coming out from the G-tube area. The patient was brought in the ER and admitted for further management. PHYSICAL EXAMINATION: VITAL SIGNS: Blood pressure 123/81, respirations 20, pulse 100, and temperature 96. GENERAL: Elderly male, appears stated age. NECK: Supple. No mass. LUNGS: Equal breath sounds, few rhonchi. HEART: Regular rate and rhythm without appreciable murmurs. ABDOMEN: Soft and nontender. EXTREMITIES: Positive excoriations. NEUROLOGIC: Limited. Pus in G-tube. HOSPITAL COURSE: The patient was admitted to medical floor, continued on IV hydration and IV antibiotic. The patient was referred to Dr. Renee for Gastroenterology. G-tube was replaced at the bedside, placed and Gastrografin. The patient was cleared for discharge. CONDITION ON DISCHARGE: Fair. DISCHARGE INSTRUCTIONS: The patient to continue current medical regimen. The patient will be signed out to Dr. Gale who will be following the patient. JOB# [id number]
[2016-07-23 05:14] LABS: FOLIC ACID 17.6 ng/mL (>3.0)
== END 2016-07-22 14:01 | DRG 393 ==
LOC: ER 16:42 → MSI 20:53
PROVIDERS: ADMIT Internal Medicine; ATTEND Internal Medicine
PROC: 0D20XUZ Change Feeding Device in Upper Intestinal Tract, External Approach (ICD-10-PCS; principal; 2016-07-19)
DX: K94.22 Gastrostomy infection (principal); E43 Unspecified severe protein-calorie malnutrition; G20 Parkinson's disease; F03.90 Unspecified dementia, unspecified severity, without behavioral disturbance, psychotic disturbance, mood disturbance, and anxiety; I48.0 Paroxysmal atrial fibrillation; L03.311 Cellulitis of abdominal wall; E86.0 Dehydration; I10 Essential (primary) hypertension; E03.9 Hypothyroidism, unspecified; F20.9 Schizophrenia, unspecified; F41.9 Anxiety disorder, unspecified; K56.41 Fecal impaction; G40.909 Epilepsy, unspecified, not intractable, without status epilepticus; F79 Unspecified intellectual disabilities; Y83.8 Other surgical procedures as the cause of abnormal reaction of the patient, or of later complication, without mention of misadventure at the time of the procedure; Y92.89 Other specified places as the place of occurrence of the external cause; Z95.0 Presence of cardiac pacemaker; Z86.73 Personal history of transient ischemic attack (TIA), and cerebral infarction without residual deficits
CPT/HCPCS: 36415-UA; 71010-TC; 74000-TC; 80048-TC; 80053-TC; 80164-TC; 82140-TC; 82607-90; 82746-90; 83735-TC; 83880-TC; 85025-TC; 85610-TC; 85730-TC; 94760; J0295; J1644; J2270; J2405; J7030; X7704; Z7610

== ENCOUNTER 2017-11-24 18:57 | Inpatient (IN) | payer MEDICARE, MEDICAID ==
[2017-11-24] MEDS ORDERED: Lactated Ringer 1,000 ML IV ONE (19:36)
[2017-11-24 19:49] LABS: % BASOPHILS 1.2 % (0.0-2.0); % EOSINOPHILS 1.1 % (0.0-5.0); % LYMPHOCYTES 19.7 % (20.0-50.0); BASOPHILE ABSOLUTE 0.1 Th/cumm (0-0.2); EOSINOPHILE ABSOLUTE 0.1 Th/cmm (0.1-0.4); HEMATOCRIT 40.7 % (41.0-60); HEMOGLOBIN 13.7 gm/dL (12-16); LYMPHOCYTE ABSOLUTE 1.6 Th/cmm (1.5-3.0); MEAN CELL VOLUME 90.1 fl (80-99); MEAN CORPUSCULAR HEMOGLOBIN 30.4 pg (27.0-31.0); MEAN CORPUSCULAR HGB CONC 33.7 pg (28.0-36.0); MONOCYTE ABSOLUTE 0.6 Th/cmm (0.3-1.0); NEUTROPHILE ABSOLUTE 5.6 Th/cmm (1.8-8.0); PLATELET COUNT 185 Th/cmm (150-400); RED BLOOD COUNT 4.51 Mil/cmm (3.80-5.80); RED CELL DISTRIBUTION WIDTH 14.3 % (11.5-20.0)
[2017-11-24] MEDS ORDERED: Diatrizoate Meglumine/Diatri 30 mL Sol ONE (19:53)
[2017-11-24 20:07] LABS: ALB/GLOB RATIO 0.8 (1.0-1.8); ALBUMIN 3.3 gm/dL (4.2-5.5); ALKALINE PHOSPHATASE 82 U/L (34-104); ANION GAP 9.9 (7.0-16.0); BILIRUBIN,TOTAL 0.7 mg/dL (0.3-1.0); BUN - UREA NITROGEN 25 mg/dL (7-25); CALCIUM SERUM 9.8 mg/dL (8.6-10.3); CHLORIDE 105 mEq/L (98-107); CREATININE - SERUM 0.6 mg/dL (0.7-1.3); GFR AFRICAN-AMERICAN > 60.0 ml/min (>90); GFR NON AFRICAN-AMERICAN > 60.0 ml/min; GLUCOSE 113 mg/dL (70-105); MAGNESIUM 2.2 mg/dL (1.9-2.7); PHOSPHOROUS 3.9 mg/dL (2.5-5.0); POTASSIUM SERUM 3.9 mEq/L (3.5-5.1); SGOT 20 U/L (13-39); SGPT/ALT 14 U/L (7-52); SODIUM SERUM 141 mEq/L (136-145); TOTAL PROTEIN,SERUM 7.5 gm/dL (6.0-8.3)
--- NOTE | 2017-11-24 22:32 | ED Physician Chart ---
ED Chief Complaint/HPI - Patient Information Date Seen:: 11/24/17 Time Seen:: 18:59 Chief Complaint:: weakness & G tube malfunction History of Present Illness:: weakness & G tube malfunction. Patient is less interactive. He normally interacts with the outside world alot more. He is able to say his name. G tube feedings are usually Jevity 1.5 at 65 cc/hour for 20 hours. Over the weekend, he has had problems with nausea and vomiting to the point where the nurses have had to hold his tube feeds for 2 to 3 hours at a time. Last bowel movement on 11/22/17. Allergies:: Allergies Allergy/AdvReac Type Severity Reaction Status Date / Time No Known Allergies Allergy Verified 08/20/16 22:10 Vitals:: Vital Signs - 8 hr 11/24/17 18:59 Temp 98.1 F HR 130 RR 20 BP 180/90 O2 Sat % 98 Historian:: Medical Records Review:: Nurse's Note Reviewed, Transfer documents Reviewed ED Review of Systems - Review of Systems General/Constitutional: No fever, No chills, No weight loss, No weakness, No diaphoresis, No edema, No loss of appetite Cardio Vascular: No chest pain, No palpitations, No PND, No orthopnea, No edema Pulmonary: SOB GI: Nausea, Vomiting, Constipation G/U: No dysuria, No frequency, No hematuria Musculoskeletal: No bone or joint pain, No back pain, No muscle pain Endocrine: No polyuria, No polydipsia Hematopoietic: No bruising, No lymphadenopathy Allergic/Immuno: No urticaria, No angioedema Neurological: No syncope, No focal symptoms, No weakness, No paresthesia, No headache, No seizure, No dizziness, No confusion, No vertigo ED Past Medical History - Past Medical History Past Medical History: DM, Asthma/COPD, PUD/GERD, Thyroid disorder, Other (g tube ; Parkinson's; epilepsy; atrial fibrillation; cardiac pacemaker; dysphagia, oral pharyngeal phase; anemia ) Psychiatricy History: Depression Family Medical History - Family Member Mother History Unknown: Yes Ethnicity: Unknown Living Status: Unknown Hx Family Cancer: No Hx Family Coronary Artery Disease: No Hx Family Congestive Heart Failure: Yes Hx Family Hypertension: Yes Hx Family Stroke: No Hx Family Diabetes: Yes Hx Family Seizures: No Hx Family Dementia: No Hx Family AIDS: No Hx Family HIV: No Hx Family COPD: No Hx Family Hepatitis: No Hx Family Psychiatric Problems: No Hx Family Tuberculosis: No ED Physical Exam - Physical Examination General/Constitutional: Alert Head: Atraumatic Other Skin comments:: midline scar from prior ventral hernia repair. G tube in place. No cellulitis. Stage I decubitus on sacrum. Other Neck comments:: kyphosis. Other Respiratory comments:: decreased breath sounds in the left lung base more than on the right. Cardio Vascular: RRR, No murmur, gallop, rubs, NL S1 S2 GI: No tenderness/rebounding/guarding, No organomegaly, Normal BS's, Nondistended, No mass/bruits, No McBurney tenderness Other GI comments:: No inguinal hernias present. Other comments:: Large amount of fatty tissue in both groins. Small retracted penis. Other Extremities comments:: fingers are in abnormal positions chronically. Other Neuro/Psych comments:: non verbal. shakes his head no when he doesn't want to be turned. doesn't appear to have control of his BUE or his BLE---spasms. Other Misc comments:: stage I sacral decubitus. ED Labs/Radiology/EKG Results - Lab Results Results: Laboratory Tests 11/24/17 11/24/17 19:40 19:40 WBC 8.0 RBC 4.51 Hgb 13.7 Hct 40.7 L MCV 90.1 MCH 30.4 MCHC Differential 33.7 RDW 14.3 Plt Count 185 MPV 11.0 Neutrophils % 71.0 Lymphocytes % 19.7 L Monocytes % 7.0 Eosinophils % 1.1 Basophils % 1.2 Sodium 141 Potassium 3.9 Chloride 105 Carbon Dioxide 30.0 Anion Gap 9.9 BUN 25 Creatinine 0.6 L Est GFR ( Amer) > 60.0 Est GFR (Non-Af Amer) > 60.0 BUN/Creatinine Ratio 41.7 Glucose 113 H Calcium 9.8 Phosphorus 3.9 Magnesium 2.2 Total Bilirubin 0.7 AST 20 ALT 14 Alkaline Phosphatase 82 Total Protein 7.5 Albumin 3.3 L Globulin 4.2 Albumin/Globulin Ratio 0.8 L ED Assessment - Assessment General Assessment: CT scan of 11/24/17 of brain: severe motion artifacts, atrophy, limited study. CT of abdomen and pelvis: hiatal hernia, LLL pneumonia, large midline hernia with small bowel, no strangulation g-tube, no leak no hydro no free fluid partial colon resection fecal impaction of sigmoid & rectum. EKG from 11:36:11 p.m.: large amount of movement artifact with low voltage in all leads. Nonspecific ST T wave changes. spoke with Dr. Griffin about admitting this patient at 22:35. ED Septic Shock - . Is Septic Shock (SBP<90, OR Lactate>4 mmol\L) present?: No - <6hrs of presentation: Vital Signs: Vital Signs - 8 hr 11/24/17 18:59 Temp 98.1 F HR 130 RR 20 BP 180/90 O2 Sat % 98 ED Reassessment (Disposition) - Reassessment Reassessment Condition:: Improved - Diagnosis Diagnosis:: Left lower lobe pneumonia Parkinson's Epilepsy COPD atrial fibrillation cardiac pacemaker hypothyroidism Hiatal hernia Large midline hernia with small rolando, no strangulation G-tube, no leak No hydro No free fluid Partial colon resection Fecal impaction of sigmoid and rectum - Patient Disposition Discharge/Transfer:: Acute Care w/in this hosp Admitted to:: Telemetry Condition at Disposition:: Stable, Improved
[2017-11-24] MEDS ORDERED: Maalox 30 mL Cup GT PRN (23:25)
[2017-11-24] MEDS ORDERED: Magnesium Hydroxide (MOM) 30 mL UDC GT PRN (23:25)
[2017-11-24] MEDS ORDERED: guaiFENesin 200 MG/10 ML UDC GT PRN (23:28)
[2017-11-25] MEDS ORDERED: Piperacillin Sodium/Tazobact 3.375 gm Vial IV ONE ×2 (00:03→02:24)
[2017-11-25 01:07] VITALS: BP 117/70
[2017-11-25] MEDS ORDERED: Sodium Chloride 0.45% 1,000 ML IV SCH (02:30)
[2017-11-25] MEDS: Ipratropium Neb 0.5 mg/2.5 mL UD HHN SCH ×4 (07:12→19:11)
[2017-11-25] MEDS: Albuterol Nebulizer 2.5mg/3mL HHN SCH ×4 (07:12→19:11)
[2017-11-25] MEDS ORDERED: INSULIN ASPART SLIDING SCALE 100 UNITS/ML UNIT SUBQ SCH (07:30)
[2017-11-25] MEDS: INSULIN ASPART, RECOMBINANT 100 UNITS/ML SUBQ SCH ×4 (08:19→21:05)
--- NOTE | 2017-11-25 08:23 | Diagnostic Imaging Report ---
Time: CT examination of pelvis. HISTORY: Pain Total DLP equals 714 CTDI equals 13.5 Findings: Multiple contiguous thin section of the abdomen pelvis obtained from lower thorax to pubic symphysis without the administration of the intravenous contrast material oral contrast was utilized. The study correlated with prior exam of 08/23/2016. The study demonstrates left lower lung pneumonia pleural thickening Liver and spleen intact. Gastrostomy tube is noted. Oral contrast progresses normal fashion through small bowel loops. There is evidence for large midline hernia containing loops of small bowel. There is no evidence of angulation. The visualized pancreas is intact. The kidneys demonstrate no evidence of obstructive uropathy or nephrolithiasis. There is a question of partial colon resection. There is evidence for fecal impaction in the rectosigmoid junction and rectum. Urinary bladder is intact. Bony structures demonstrate no evidence for blastic or lytic lesions. No abnormal fluid collections noted. The study somewhat limited due to patient motion artifacts patient could not tolerate procedure. IMPRESSION: Somewhat limited study due to patient motion artifacts. Left lower lobe pneumonia. Small hiatal hernia Large midline hernia containing loops of small bowel without circulation. Satisfactory position gastrostomy tube no evidence for extravasation of contrast material. Fecal impaction.
--- NOTE | 2017-11-25 08:25 | Diagnostic Imaging Report ---
Exam: CT examination of brain. HISTORY: Change of mental status. Total DLP equals 745 CTDI equals 39.6 Findings: Multiple contiguous thin section of the brain were obtained from the base of skull to the vertex without the administration of contrast material, no prior studies available comparison. The study is extremely limited due to severe motion artifacts. Patient could not tolerate procedure The study grossly demonstrate no evidence for hemorrhage midline shift or edema. The ventricular system is intact. Prominence of cerebral sulci and ventricles consistent with atrophy. The visualized paranasal sinuses are well aerated. IMPRESSION: Extremely limited study due to severe motion artifacts. Atrophy, ischemic white matter changes of chronic if the origin Clinical correlation and repeat examination with patient sedation is recommended.
--- NOTE | 2017-11-25 08:57 | Diagnostic Imaging Report ---
CHEST X-RAY: AP view INDICATION: Productive cough COMPARISON: Chest x-ray and recent CT abdomen and pelvis on 11/24/2017 FINDINGS: Left chest wall pacemaker is stable. There appears to be oral contrast from previous exam within the stomach. No focal consolidation or effusions. Chronic lung changes are noted. Mild cardiomegaly is noted. IMPRESSION: Chronic lung changes with no focal consolidation identified. Note was made of faint infiltrate within the left lung base seen on recent CT examination on 11/24/2017.
[2017-11-25] MEDS ORDERED: Non-Formulary Item 1 EA (Amino Acids/Protein Hydrolys [Pro-Stat Sugar Free Liquid] 30 ML) GT SCH (09:00)
[2017-11-25] MEDS ORDERED: Multivitamin w/ Minerals 15 mL UDC GT SCH (09:00)
[2017-11-25] MEDS ORDERED: Non-Formulary Item 1 EA (Argin/Glut/Cahmb/Collag/Mv-Min [Juven Packet] 1 EACH) GT SCH (09:00)
[2017-11-25] MEDS: Docusate Sodium 100 mg/10 mL UD GT SCH ×2 (09:37→17:28)
[2017-11-25] MEDS: Pantoprazole 40 mg/Packet GT SCH (09:38)
[2017-11-25] MEDS: Sodium Chloride 0.45% 1,000 ML IV SCH (15:00)
--- NOTE | 2017-11-25 15:10 | Internal Medicine Prog Note ---
Internal Medicine Subjective - Subjective Service Date: 11/25/17 ([id number] [facility]) Internal Medicine Objective - Results Result Diagrams: 11/24/17 19:40 11/24/17 19:40 Recent Labs: Laboratory Last Values WBC 8.0 Th/cmm (4.8-10.8) 11/24/17 19:40 RBC 4.51 Mil/cmm (3.80-5.80) 11/24/17 19:40 Hgb 13.7 gm/dL (12-16) 11/24/17 19:40 Hct 40.7 % (41.0-60) L 11/24/17 19:40 MCV 90.1 fl (80-99) 11/24/17 19:40 MCH 30.4 pg (27.0-31.0) 11/24/17 19:40 MCHC Differential 33.7 pg (28.0-36.0) 11/24/17 19:40 RDW 14.3 % (11.5-20.0) 11/24/17 19:40 Plt Count 185 Th/cmm (150-400) 11/24/17 19:40 MPV 11.0 fl 11/24/17 19:40 Neutrophils % 71.0 % (40.0-80.0) 11/24/17 19:40 Lymphocytes % 19.7 % (20.0-50.0) L 11/24/17 19:40 Monocytes % 7.0 % (2.0-10.0) 11/24/17 19:40 Eosinophils % 1.1 % (0.0-5.0) 11/24/17 19:40 Basophils % 1.2 % (0.0-2.0) 11/24/17 19:40 Sodium 141 mEq/L (136-145) 11/24/17 19:40 Potassium 3.9 mEq/L (3.5-5.1) 11/24/17 19:40 Chloride 105 mEq/L (98-107) 11/24/17 19:40 Carbon Dioxide 30.0 mEq/L (21.0-31.0) 11/24/17 19:40 Anion Gap 9.9 (7.0-16.0) 11/24/17 19:40 BUN 25 mg/dL (7-25) 08/20/18 19:40 Creatinine 0.6 mg/dL (0.7-1.3) L 11/24/17 19:40 Est GFR ( Amer) > 60.0 ml/min (>90) 11/24/17 19:40 Est GFR (Non-Af Amer) > 60.0 ml/min 11/24/17 19:40 BUN/Creatinine Ratio 41.7 11/24/17 19:40 Glucose 113 mg/dL (70-105) H 11/24/17 19:40 POC Glucose 126 MG/DL (70 - 105) H 11/25/17 12:21 Calcium 9.8 mg/dL (8.6-10.3) 11/24/17 19:40 Phosphorus 3.9 mg/dL (2.5-5.0) 11/24/17 19:40 Magnesium 2.2 mg/dL (1.9-2.7) 11/24/17 19:40 Total Bilirubin 0.7 mg/dL (0.3-1.0) 11/24/17 19:40 AST 20 U/L (13-39) 11/24/17 19:40 ALT 14 U/L (7-52) 11/24/17 19:40 Alkaline Phosphatase 82 U/L (34-104) 11/24/17 19:40 Total Protein 7.5 gm/dL (6.0-8.3) 11/24/17 19:40 Albumin 3.3 gm/dL (4.2-5.5) L 11/24/17 19:40 Globulin 4.2 gm/dL 11/24/17 19:40 Albumin/Globulin Ratio 0.8 (1.0-1.8) L 11/24/17 19:40 TSH 2.55 uIU/ml (0.34-5.60) 11/24/17 19:40 - Physical Exam Vitals and I&O: Vital Signs Temp 96.5 F 11/25/17 12:00 Pulse 79 11/25/17 12:00 Resp 19 11/25/17 12:00 BP 139/60 11/25/17 12:00 Pulse Ox 97 11/25/17 12:00 Intake & Output 11/24/17 11/25/17 11/25/17 18:59 06:59 18:59 Weight (lbs) 220 lb 208 lb 14.4 oz Other: # Voids 2 # Bowel Movements 0 Stool Characteristics Formed Formed Weight Source Estimated Bedscale Active Medications: Current Medications Acetaminophen (Tylenol) 325 mg GT Q4HR PRN PRN Reason: Pain(1-3) or Fever >101 Stop: 01/23/18 23:24 Acetaminophen (Tylenol) 650 mg GT Q4H PRN PRN Reason: Pain(4-6) Or Fever above 101 Stop: 01/23/18 23:27 Al Hydrox/Mg Hydrox/Simethicone (Maalox) 30 ml GT Q4HR PRN PRN Reason: GI UPSET Stop: 01/23/18 23:24 Albuterol Sulfate (Albuterol 2.5mg/3ml Neb Ud) 2.5 mg HHN QIDRT [facility]IL[facility] Stop: 01/24/18 06:59 Last Admin: 11/25/17 11:51 Dose: 2.5 mg Ascorbic Acid (Vitamin C) 500 mg GT DAILY [facility] Stop: 01/24/18 08:59 Last Admin: 11/25/17 09:38 Dose: 500 mg Carbidopa/Levodopa (Sinemet 25mg-100 Mg) 1 tab GT Q8HR [facility] Stop: 01/24/18 12:59 Clonazepam (Klonopin) 0.5 mg GT Q8HR [facility]; Protocol Stop: 01/25/18 04:59 Docusate Sodium (Colace) 200 mg GT BID [facility] Stop: 01/24/18 08:59 Last Admin: 11/25/17 09:37 Dose: 200 mg Guaifenesin (Robitussin) 200 mg GT Q4HR PRN PRN Reason: Cough or Congestion Stop: 01/23/18 23:27 Cefepime HCl 1 gm/ Dextrose 50 mls @ 100 mls/hr IV Q12H [facility] Stop: 01/24/18 02:29 Last Admin: 11/25/17 05:36 Dose: 100 mls/hr Sodium Chloride (Nacl 0.45%) 1,000 mls @ 40 mls/hr IV .Q24H [facility] Stop: 01/24/18 13:59 Insulin Aspart (Novolog) 0 units SUBQ ACHS [facility]; Protocol Stop: 01/24/18 07:29 Last Admin: 11/25/17 13:00 Dose: Not Given Ipratropium [place] (Atrovent Neb 0.5mg/2.5ml) 0.5 mg HHN QIDRT [facility] Stop: 01/24/18 06:59 Last Admin: 11/25/17 11:51 Dose: 0.5 mg Magnesium Hydroxide (Milk Of Magnesia) 30 ml GT Q4HR PRN PRN Reason: GI UPSET Stop: 01/23/18 23:24 Multivitamins/Minerals (Theragran M) 15 ml GT DAILY [facility] Stop: 01/24/18 08:59 Last Admin: 11/25/17 09:38 Dose: Not Given Ondansetron HCl (Zofran) 4 mg IV Q8H PRN PRN Reason: Nausea / Vomiting Stop: 01/23/18 23:27 Pantoprazole Sodium (Protonix) 40 mg GT DAILY [facility] Stop: 01/24/18 08:59 Last Admin: 11/25/17 09:38 Dose: 40 mg Valproate Sodium (Depakene) 900 mg GT BID [facility]; Protocol Stop: 01/24/18 08:59 Last Admin: 11/25/17 09:38 Dose: 900 mg Zinc Sulfate (Zinc Sulfate) 220 mg GT DAILY [facility] Stop: 01/24/18 08:59 Last Admin: 11/25/17 09:38 Dose: 220 mg - Procedures Procedures: Procedures Procedure Code Date BILE TRACT SURGERY PROCEDURE 52796 08/20/16 BYPASS COMMON BILE DUCT TO SMALL INTESTINE, OPEN APPROACH [id number] 08/20/16 CHANGE FEEDING DEVICE IN UP INTEST TRACT, CARPENTER MOLD APPROACH [id number] 03/10/17 CHANGE GASTROSTOMY TUBE 14773 07/18/16 CHEST X-RAY NEC 87.49 12/05/[address] GASTROSTOMY TUBE 81365 05/19/15 EXTIRPATION OF MATTER FROM STOMACH, ENDO [id number] 05/19/15 FLUOROSCOPY OF GALLBLADDER & BILE DUCT USING L OSM CONTRAST [id number] 08/20/16 FUSE BILE DUCTS AND BOWEL 48351 08/20/16 INDIVID PSYCHOTHERAP NEC 94.39 05/19/08 INITIAL INSERT OF SING CHAMB DEV, RATE RESPONSIVE 37.82 12/05/08 INITIAL INSERT OF TRANS. LEADS INTO VENTRICLE 37.71 12/05/08 INSERT HEART PM VENTRICULAR 99544 12/05/08 INSERTION OF ENDOTRACHEAL AIRWAY INTO TRACHEA, VIA OPENING [id number] 05/16/17 INSERTION OF FEEDING DEVICE INTO STOMACH, ENDO [id number] 05/19/15 INSPECTION OF HEPATOBILIARY DUCT, OPEN APPROACH [id number] 08/20/16 OTHER GROUP THERAPY 94.44 02/13/11 PERCUTANEOUS [ENDOSCOPIC] GASTROSTOMY [PEG] 43.11 10/03/13 RECREATIONAL THERAPY 93.81 02/13/11 RELEASE LARGE INTESTINE, OPEN APPROACH [id number] 08/20/16 REMOVAL OF GALLBLADDER [id number] 08/20/16 RESECTION OF GALLBLADDER, OPEN APPROACH [id number] 08/20/16 RESECTION OF RIGHT LARGE INTESTINE, OPEN APPROACH [id number] 08/20/16 RESPIRATORY VENTILATION, 24-96 CONSECUTIVE HOURS [id number] 08/20/16 VENOUS CUTDOWN 38.94 12/05/08 VENT MGMT INPAT INIT DAY 23342 08/20/16 X-RAY & PACEMAKER INSERTION 79544 12/05/08
[2017-11-25 15:57] LABS: URINE BILIRUBIN NEGATIVE (NEGATIVE); URINE BLOOD NEGATIVE (NEGATIVE); URINE GLUCOSE (UA) NEGATIVE (NEGATIVE); URINE KETONE NEGATIVE (NEGATIVE); URINE LEUKOCYTE ESTERASE NEGATIVE (NEGATIVE); URINE MICROSCOPIC INDICATED? YES; URINE NITRATE NEGATIVE (NEGATIVE); URINE PH 8.5 (4.6 - 8.0); URINE PROTEIN TRACE mg/dL (NEGATIVE); URINE SOURCE CLEAN C; URINE UROBILINOGEN 0.2 E.U./dL (0.2 - 1.0)
[2017-11-25 15:59] LABS: URINE CLARITY CLEAR (CLEAR); URINE COLOR YELLOW
[2017-11-25 16:05] LABS: URINE BACTERIA FEW /hpf (NONE SEEN); URINE EPITHELIAL CELLS FEW /lpf (FEW); URINE WBC 0-2 /hpf (0-5)
--- NOTE | 2017-11-25 16:06 | History & Physical ---
ADMIT DATE: 11/25/2017 CHIEF COMPLAINT: Weakness and G-tube malfunction. HISTORY OF PRESENT ILLNESS: This is a 67-year-old male who is a care home resident, admitted to the telemetry unit and due to a 1-day history of weakness and also G-tube malfunction. The patient apparently had an episode of nausea and vomiting and the patient's G-tube feedings were held for about 2-3 hours. For further management, the patient is now admitted here to the telemetry unit. PAST MEDICAL HISTORY: Hypertension, dementia, schizoaffective disorder, AFib, pacemaker, and history of stroke. PAST SURGICAL HISTORY: G-tube and pacemaker. ALLERGIES: No drug allergies. FAMILY HISTORY: Noncontributory. SOCIAL HISTORY: The patient is a care home resident, requiring 24-hour nursing care. REVIEW OF SYSTEMS: Unable to obtain at this time. PHYSICAL EXAMINATION: GENERAL: The patient is a well-developed, well-nourished, no apparent distress. VITAL SIGNS: Temperature 96.5, heart rate 79, blood pressure 139/60, respiratory rate 19 and O2 97%. HEENT: Head; normocephalic and atraumatic. NECK: Supple. No mass. LUNGS: Clear bilaterally. CARDIOVASCULAR: Regular rate and rhythm. ABDOMEN: Soft and nontender. SKIN: Noted with excoriations. LABORATORY DATA: WBC 8.0, H and H 13.7 and 40.7 and platelet of 185. Sodium 141, potassium 3.9, chloride 105, BUN 25 and creatinine 0.6. DIAGNOSTICS: The patient had a chest x-ray done and impression is chronic lung changes with no focal consolidation identified. The patient also had a CT of the abdomen and pelvis done and impression is somewhat limited exam, left lower lobe pneumonia, small hiatal hernia, large midline hernia containing loops of small bowel without circulation, satisfactory position of gastrostomy tube. No evidence of extravasation of contrast material, fecal impaction. The patient also had a CT of the head done, impression is extremely limited exam due to motion artifact, atrophy, ischemic white matter changes of chronic at the origin. Clinical correlation, repeat examination with part of sedation is recommended. ASSESSMENT: Pneumonia, abdominal pain, G-tube malfunction, hypertension, dementia, schizoaffective disorder, history of atrial fibrillation, pacemaker status, history of stroke and diabetes. PLAN: We will get a GI consultation on the case. We will get IV fluids for hydration. Keep the patient on IV antibiotics of Maxipime 1 gram IV q. 12 hours. We will get followup labs for tomorrow morning. We will get Accu-Chek with sliding scale. Continue to follow this patient. JOB# [id number]
[2017-11-25] MEDS ORDERED: Fleet Enema 135 mL RC ONE (17:40)
--- NOTE | 2017-11-25 22:13 | Consultation ---
DATE OF CONSULTATION: 11/25/2017 REQUESTING PHYSICIAN: Pierre Griffin D.O. REASON FOR CONSULTATION: Fecal impaction. HISTORY OF PRESENT ILLNESS: This is a 67-year-old male with history of dysphagia and G-tube insertion admitted for nausea and vomiting for a few hours duration. There is also a 1-day history of weakness and possible G-tube malfunction, feedings were held momentarily. On CT imaging here the patient was noted to have fecal impaction and large ventral hernia and small hiatal hernia. PAST MEDICAL HISTORY: Notable for hypertension, dementia, old stroke, schizoaffective disorder, atrial fibrillation and pacemaker placement. ALLERGIES: No known drug allergies. FAMILY HISTORY: Noncontributory. SOCIAL HISTORY: [facility] resident. No known tobacco, alcohol or drugs. REVIEW OF SYSTEMS: A comprehensive 12-point review of system was conducted and is only positive for those signs and symptoms present in history present illness. CURRENT MEDICATIONS: Tylenol as needed, Maalox, vitamin C, albuterol, Sinemet, cefepime, Klonopin, Colace 200 mg per G-tube b.i.d., Robitussin, insulin sliding scale, Atrovent, milk of magnesia p.r.n., multivitamin, Zofran p.r.n., Protonix 40 mg per G-tube daily, IV fluids, Depakote, and zinc sulfate. ALLERGIES: No known drug allergies. PHYSICAL EXAMINATION: VITAL SIGNS: Temperature of 97.0, blood pressure is 149/65, pulse is 114, respirations 18, O2 sat 95%. GENERAL: The patient is well-developed, chronically ill-appearing male who is in no acute distress. HEENT: Sclerae nonicteric. Oropharynx is clear. CARDIOVASCULAR: Regular rate and rhythm. LUNGS: With occasional rhonchi at the bases. ABDOMEN: Soft, nontender, slightly distended, intact G-tube. RECTAL: Deferred. LABORATORY DATA AND IMAGING: Complete blood count is normal. Creatinine is normal. Liver enzymes are normal. TSH is normal. CT of the abdomen and pelvis showed somewhat limited study. Left lower lobe pneumonia, small hiatal hernia. Large midline ventral hernia containing small bowel loops without incarceration, satisfactory G-tube position in stomach and also evidence of fecal impaction. IMPRESSION: 1. Abdominal distention and ileus likely from constipation/fecal impaction. 2. Dysphagia and G-tube insertion. 3. Dementia and old stroke. RECOMMENDATIONS: 1. Continue Colace. 2. Fleet enema. 3. Serial KUBs checks until fecal impaction resolved. 4. G-tube feedings to be continued at goal rate as tolerated. 5. G-tube care. 6. Monitor labs. Thank you, Dr. Pierre Griffin for involving us in the care of your patient. If you have any further questions, please call us. JOB# [id number]
[2017-11-26] MEDS: INSULIN ASPART, RECOMBINANT 100 UNITS/ML SUBQ SCH ×4 (06:31→21:04)
[2017-11-26 06:37] LABS: % BASOPHILS 0.2 % (0.0-2.0); % EOSINOPHILS 0.7 % (0.0-5.0); % LYMPHOCYTES 9.9 % (20.0-50.0); % MONOCYTES 5.6 % (2.0-10.0); % NEUTROPHILS 83.6 % (40.0-80.0); HEMATOCRIT 41.5 % (41.0-60); LYMPHOCYTE ABSOLUTE 0.7 Th/cmm (1.5-3.0); MEAN CELL VOLUME 90.6 fl (80-99); MEAN CORPUSCULAR HEMOGLOBIN 30.6 pg (27.0-31.0); MEAN CORPUSCULAR HGB CONC 33.7 pg (28.0-36.0); MEAN PLATELET VOLUME 11.6 fl; MONOCYTE ABSOLUTE 0.4 Th/cmm (0.3-1.0); PLATELET COUNT 171 Th/cmm (150-400); RED BLOOD COUNT 4.58 Mil/cmm (3.80-5.80); RED CELL DISTRIBUTION WIDTH 14.3 % (11.5-20.0); WHITE BLOOD COUNT 7.1 Th/cmm (4.8-10.8)
[2017-11-26] MEDS: Ipratropium Neb 0.5 mg/2.5 mL UD HHN SCH ×4 (07:13→19:09)
[2017-11-26] MEDS: Albuterol Nebulizer 2.5mg/3mL HHN SCH ×4 (07:14→19:09)
[2017-11-26] MEDS ORDERED: Magnesium Citrate 1.75 GM/300 mL Bottle PO ONE (08:00)
[2017-11-26 09:14] LABS: ALB/GLOB RATIO 0.8 (1.0-1.8); ALBUMIN 3.4 gm/dL (4.2-5.5); ALKALINE PHOSPHATASE 83 U/L (34-104); ANION GAP 10.8 (7.0-16.0); BUN - UREA NITROGEN 19 mg/dL (7-25); CALCIUM SERUM 9.5 mg/dL (8.6-10.3); CARBON DIOXIDE 27.8 mEq/L (21.0-31.0); CHLORIDE 103 mEq/L (98-107); CREATININE - SERUM 0.5 mg/dL (0.7-1.3); GFR AFRICAN-AMERICAN > 60.0 ml/min (>90); GFR NON AFRICAN-AMERICAN > 60.0 ml/min; GLUCOSE 81 mg/dL (70-105); POTASSIUM SERUM 3.6 mEq/L (3.5-5.1); SGOT 20 U/L (13-39); SGPT/ALT 5 U/L (7-52); SODIUM SERUM 138 mEq/L (136-145); TOTAL PROTEIN,SERUM 7.6 gm/dL (6.0-8.3)
[2017-11-26] MEDS: Pantoprazole 40 mg/Packet GT SCH (09:30)
[2017-11-26] MEDS: Docusate Sodium 100 mg/10 mL UD GT SCH ×2 (09:31→17:16)
--- NOTE | 2017-11-26 09:56 | Diagnostic Imaging Report ---
KUB abdominal film HISTORY: Constipation The exam demonstrates residual radiopaque contrast associated with the patient's earlier CT scan within nondilated colon. Bowel gas pattern otherwise nonspecific. Stool seen in the rectal region. No free intraperitoneal air. IMPRESSION: 1. Residual radiopaque contrast within nondilated large bowel. 2. Evidence of mild stool within the rectal region. 3. No other acute radiographic abnormalities
[2017-11-26] MEDS ORDERED: Probiotic Screen MC PRN (11:02)
--- NOTE | 2017-11-26 12:04 | GI Progress Note ---
Subjective - Review of Systems Service Date: 11/26/17 Subjective: DILSHAD GT FEEDS. HAD COPIOUS BM'S. Objective - Results Result Diagrams: 11/26/17 05:26 11/26/17 05:26 Recent Labs: Laboratory Last Values WBC 7.1 Th/cmm (4.8-10.8) 11/26/17 05:26 RBC 4.58 Mil/cmm (3.80-5.80) 11/26/17 05:26 Hgb 14.0 gm/dL (12-16) 11/26/17 05:26 Hct 41.5 % (41.0-60) 11/26/17 05:26 MCV 90.6 fl (80-99) 11/26/17 05:26 MCH 30.6 pg (27.0-31.0) 11/26/17 05:26 MCHC Differential 33.7 pg (28.0-36.0) 11/26/17 05:26 RDW 14.3 % (11.5-20.0) 11/26/17 05:26 Plt Count 171 Th/cmm (150-400) 11/26/17 05:26 MPV 11.6 fl 11/26/17 05:26 Neutrophils % 83.6 % (40.0-80.0) H 11/26/17 05:26 Lymphocytes % 9.9 % (20.0-50.0) L 11/26/17 05:26 Monocytes % 5.6 % (2.0-10.0) 11/26/17 05:26 Eosinophils % 0.7 % (0.0-5.0) 11/26/17 05:26 Basophils % 0.2 % (0.0-2.0) 11/26/17 05:26 Sodium 138 mEq/L (136-145) 11/26/17 05:26 Potassium 3.6 mEq/L (3.5-5.1) 11/26/17 05:26 Chloride 103 mEq/L (98-107) 11/26/17 05:26 Carbon Dioxide 27.8 mEq/L (21.0-31.0) 11/26/17 05:26 Anion Gap 10.8 (7.0-16.0) 11/26/17 05:26 BUN 19 mg/dL (7-25) 11/26/17 05:26 Creatinine 0.5 mg/dL (0.7-1.3) L 11/26/17 05:26 Est GFR ( Amer) > 60.0 ml/min (>90) 11/26/17 05:26 Est GFR (Non-Af Amer) > 60.0 ml/min 11/26/17 05:26 BUN/Creatinine Ratio 38.0 11/26/17 05:26 Glucose 81 mg/dL (70-105) 11/26/17 05:26 POC Glucose 146 MG/DL (70 - 105) H 11/26/17 11:31 Calcium 9.5 mg/dL (8.6-10.3) 11/26/17 05:26 Phosphorus 3.9 mg/dL (2.5-5.0) 11/24/17 19:40 Magnesium 2.2 mg/dL (1.9-2.7) 11/24/17 19:40 Total Bilirubin 1.0 mg/dL (0.3-1.0) 11/26/17 05:26 AST 20 U/L (13-39) 11/26/17 05:26 ALT 5 U/L (7-52) L 11/26/17 05:26 Alkaline Phosphatase 83 U/L (34-104) 11/26/17 05:26 Ammonia 48 umol/L (16-53) 11/26/17 05:26 B-Natriuretic Peptide 292.0 pg/mL (5.0-100.0) H 11/26/17 05:26 Total Protein 7.6 gm/dL (6.0-8.3) 11/26/17 05:26 Albumin 3.4 gm/dL (4.2-5.5) L 11/26/17 05:26 Globulin 4.2 gm/dL 11/26/17 05:26 Albumin/Globulin Ratio 0.8 (1.0-1.8) L 11/26/17 05:26 TSH 2.55 uIU/ml (0.34-5.60) 11/24/17 19:40 Urine Source CLEAN C 11/25/17 15:36 Urine Color YELLOW 11/25/17 15:36 Urine Clarity CLEAR (CLEAR) 11/25/17 15:36 Urine pH 8.5 (4.6 - 8.0) 11/25/17 15:36 Ur Specific Butler 1.010 (1.005-1.030) 11/25/17 15:36 Urine Protein TRACE mg/dL (NEGATIVE) 11/25/17 15:36 Urine Glucose (UA) NEGATIVE mg/dL (NEGATIVE) 11/25/17 15:36 Urine Clinitest Cancelled 11/25/17 15:40 Urine Ketones NEGATIVE mg/dL (NEGATIVE) 11/25/17 15:36 Urine Blood NEGATIVE (NEGATIVE) 11/25/17 15:36 Urine Nitrate NEGATIVE (NEGATIVE) 11/25/17 15:36 Urine Bilirubin NEGATIVE (NEGATIVE) 11/25/17 15:36 Urine Urobilinogen 0.2 E.U./dL (0.2 - 1.0) 11/25/17 15:36 Ur Leukocyte Esterase NEGATIVE (NEGATIVE) 11/25/17 15:36 Ur Micro Indicated Cancelled 11/25/17 15:40 Urine RBC 2-5 /hpf (0-5) H 11/25/17 15:36 Urine WBC 0-2 /hpf (0-5) 11/25/17 15:36 Ur Epithelial Cells FEW /lpf (FEW) 11/25/17 15:36 Calcium Oxalate Crystal Cancelled 11/25/17 15:40 Uric Acid Crystals Cancelled 11/25/17 15:40 Triple Phos Crystals Cancelled 11/25/17 15:40 Other Crystals Cancelled 11/25/17 15:40 Amorphous Sediment Cancelled 11/25/17 15:40 Urine Bacteria FEW /hpf (NONE SEEN) 11/25/17 15:36 Hyaline Casts Cancelled 11/25/17 15:40 Fine Granular Casts Cancelled 11/25/17 15:40 Coarse Granular Casts Cancelled 11/25/17 15:40 Waxy Casts Cancelled 11/25/17 15:40 RBC Casts Cancelled 11/25/17 15:40 WBC Casts Cancelled 11/25/17 15:40 Other Casts Cancelled 11/25/17 15:40 Urine Mucus FEW /lpf (FEW) 11/25/17 15:36 Urine Other Cancelled 11/25/17 15:40 Urine Trichomonas Cancelled 11/25/17 15:40 Urine Yeast Cancelled 11/25/17 15:40 Urine Sperm Cancelled 11/25/17 15:40 Ur Oval Fat Bodies Cancelled 11/25/17 15:40 - Physical Exam Vitals and I&O: Vital Signs Temp 98.1 F 11/26/17 11:49 Pulse 75 11/26/17 11:49 Resp 18 11/26/17 11:49 BP 104/46 11/26/17 11:49 Pulse Ox 90 11/26/17 11:49 Intake & Output 11/25/17 11/26/17 11/26/17 18:59 06:59 18:59 Intake Total 50 650 820 Balance 50 650 820 Weight (lbs) 94.347 kg 94.347 kg Intake: Intake, IV Amount 50 Cefepime 1 gm In Dextrose 50 5% 50 ml @ 100 mls/hr IV Q12H [facility] Rx#:[id number] Oral 650 Tube Feeding 520 Other 300 Other: # Voids 4 3 # Bowel Movements 2 2 Stool Characteristics Formed Soft Weight Source Bedscale Bedscale Active Medications: Current Medications Acetaminophen (Tylenol) 325 mg GT Q4HR PRN PRN Reason: Pain(1-3) or Fever >101 Stop: 01/23/18 23:24 Acetaminophen (Tylenol) 650 mg GT Q4H PRN PRN Reason: Pain(4-6) Or Fever above 101 Stop: 01/23/18 23:27 Al Hydrox/Mg Hydrox/Simethicone (Maalox) 30 ml GT Q4HR PRN PRN Reason: GI UPSET Stop: 01/23/18 23:24 Albuterol Sulfate (Albuterol 2.5mg/3ml Neb Ud) 2.5 mg HHN QIDRT [facility] Stop: 01/24/18 06:59 Last Admin: 11/26/17 10:45 Dose: 2.5 mg Ascorbic Acid (Vitamin C) 500 mg GT DAILY [facility] Stop: 01/24/18 08:59 Last Admin: 11/26/17 09:30 Dose: 500 mg Carbidopa/Levodopa (Sinemet 25mg-100 Mg) 1 tab GT Q8HR [facility] Stop: 01/24/18 12:59 Last Admin: 11/26/17 04:53 Dose: 1 tab Clonazepam (Klonopin) 0.5 mg GT Q8HR [facility]; Protocol Stop: 01/25/18 04:59 Last Admin: 11/26/17 04:53 Dose: 0.5 mg Docusate Sodium (Colace) 200 mg GT BID [facility] Stop: 01/24/18 08:59 Last Admin: 11/26/17 09:31 Dose: 200 mg Guaifenesin (Robitussin) 200 mg GT Q4HR PRN PRN Reason: Cough or Congestion Stop: 01/23/18 23:27 Cefepime HCl 1 gm/ Dextrose 50 mls @ 100 mls/hr IV Q12H [facility] Stop: 01/24/18 02:29 Last Admin: 11/26/17 03:52 Dose: 100 mls/hr Sodium Chloride (Nacl 0.45%) 1,000 mls @ 40 mls/hr IV .Q24H [facility] Stop: 01/24/18 13:59 Last Admin: 11/25/17 15:00 Dose: 40 mls/hr Insulin Aspart (Novolog) 0 units SUBQ ACHS [facility]; Protocol Stop: 01/24/18 07:29 Last Admin: 11/26/17 11:36 Dose: Not Given Ipratropium Terril (Atrovent Neb 0.5mg/2.5ml) 0.5 mg HHN QIDRT [facility] Stop: 01/24/18 06:59 Last Admin: 11/26/17 10:45 Dose: 0.5 mg Lactobacillus Rhamnosus (Culturelle 15b) 1 each PO DAILY [facility] Stop: 01/25/18 13:59 Magnesium Hydroxide (Milk Of Magnesia) 30 ml GT Q4HR PRN PRN Reason: GI UPSET Stop: 01/23/18 23:24 Miscellaneous (Probiotic Screen) 1 ea MC PRN PRN PRN Reason: PROTOCOL Stop: 01/25/18 11:01 Multivitamins/Minerals (Theragran M) 15 ml GT DAILY [facility] Stop: 01/24/18 08:59 Last Admin: 11/25/17 09:38 Dose: Not Given Ondansetron HCl (Zofran) 4 mg IV Q8H PRN PRN Reason: Nausea / Vomiting Stop: 01/23/18 23:27 Pantoprazole Sodium (Protonix) 40 mg GT DAILY [facility] Stop: 01/24/18 08:59 Last Admin: 11/26/17 09:30 Dose: 40 mg Valproate Sodium (Depakene) 900 mg GT BID [facility]; Protocol Stop: 01/24/18 08:59 Last Admin: 11/26/17 09:31 Dose: 900 mg Zinc Sulfate (Zinc Sulfate) 220 mg GT DAILY [facility] Stop: 01/24/18 08:59 Last Admin: 11/26/17 09:30 Dose: 220 mg General: No acute distress HEENT: Atraumatic Neck: Supple Cardiovascular: Regular rate Lungs: Clear to auscultation, Normal air movement Abdomen: Bowel sounds, Soft, Other (INTACT GT), no Tender - Procedures Procedures: Procedures Procedure Code Date BILE TRACT SURGERY PROCEDURE 84518 08/20/16 BYPASS COMMON BILE DUCT TO SMALL INTESTINE, OPEN APPROACH [id number] 08/20/16 CHANGE FEEDING DEVICE IN UP INTEST TRACT, ASIAN ART CURATOR APPROACH [id number] 03/10/17 CHANGE GASTROSTOMY TUBE 63220 07/18/16 CHEST X-RAY NEC 87.49 12/05/[address] GASTROSTOMY TUBE 88061 05/19/15 EXTIRPATION OF MATTER FROM STOMACH, ENDO [id number] 05/19/15 FLUOROSCOPY OF GALLBLADDER & BILE DUCT USING L OSM CONTRAST [id number] 08/20/16 FUSE BILE DUCTS AND BOWEL 26786 08/20/16 INDIVID PSYCHOTHERAP NEC 94.39 05/19/08 INITIAL INSERT OF SING CHAMB DEV, RATE RESPONSIVE 37.82 12/05/08 INITIAL INSERT OF TRANS. LEADS INTO VENTRICLE 37.71 12/05/08 INSERT HEART PM VENTRICULAR 54657 12/05/08 INSERTION OF ENDOTRACHEAL AIRWAY INTO TRACHEA, VIA OPENING [id number] 08/20/16 INSERTION OF FEEDING DEVICE INTO STOMACH, ENDO [id number] 05/19/15 INSPECTION OF HEPATOBILIARY DUCT, OPEN APPROACH [id number] 08/20/16 OTHER GROUP THERAPY 94.44 02/13/11 PERCUTANEOUS [ENDOSCOPIC] GASTROSTOMY [PEG] 43.11 10/03/13 RECREATIONAL THERAPY 93.81 02/13/11 RELEASE LARGE INTESTINE, OPEN APPROACH [id number] 08/20/16 REMOVAL OF GALLBLADDER 99868 08/20/16 RESECTION OF GALLBLADDER, OPEN APPROACH [id number] 08/20/16 RESECTION OF RIGHT LARGE INTESTINE, OPEN APPROACH [id number] 08/20/16 RESPIRATORY VENTILATION, 24-96 CONSECUTIVE HOURS [id number] 08/20/16 VENOUS CUTDOWN 38.94 12/05/08 VENT MGMT INPAT IN DAY 94274 08/20/16 X-RAY & PACEMAKER INSERTION 04000 12/05/08 Assessment/Plan - Assessment Assessment: IMPRESSION: 1. ABD DISTENSION DUE TO FECAL IMPACTION/ILEUS, NOW RESOLVED. 2. DYSPHAGIA S/P GT. RECS: 1. GT FEEDS DILSHAD. 2. STOOL SOFTENERS. 3. GT CARE. GI BE STABLE.
--- NOTE | 2017-11-26 13:56 | Internal Medicine Prog Note ---
Internal Medicine Subjective - Subjective Service Date: 11/26/17 Patient seen and examined:: with staff Patient is:: awake, verbal Per staff patient has:: tolerating meds Internal Medicine Objective - Results Result Diagrams: 11/26/17 05:26 11/26/17 05:26 Recent Labs: Laboratory Last Values WBC 7.1 Th/cmm (4.8-10.8) 11/26/17 05:26 RBC 4.58 Mil/cmm (3.80-5.80) 11/26/17 05:26 Hgb 14.0 gm/dL (12-16) 11/26/17 05:26 Hct 41.5 % (41.0-60) 11/26/17 05:26 MCV 90.6 fl (80-99) 11/26/17 05:26 MCH 30.6 pg (27.0-31.0) 11/26/17 05:26 MCHC Differential 33.7 pg (28.0-36.0) 11/26/17 05:26 RDW 14.3 % (11.5-20.0) 11/26/17 05:26 Plt Count 171 Th/cmm (150-400) 11/26/17 05:26 MPV 11.6 fl 11/26/17 05:26 Neutrophils % 83.6 % (40.0-80.0) H 11/26/17 05:26 Lymphocytes % 9.9 % (20.0-50.0) L 11/26/17 05:26 Monocytes % 5.6 % (2.0-10.0) 11/26/17 05:26 Eosinophils % 0.7 % (0.0-5.0) 11/26/17 05:26 Basophils % 0.2 % (0.0-2.0) 11/26/17 05:26 Sodium 138 mEq/L (136-145) 11/26/17 05:26 Potassium 3.6 mEq/L (3.5-5.1) 11/26/17 05:26 Chloride 103 mEq/L (98-107) 11/26/17 05:26 Carbon Dioxide 27.8 mEq/L (21.0-31.0) 11/26/17 05:26 Anion Gap 10.8 (7.0-16.0) 11/26/17 05:26 BUN 19 mg/dL (7-25) 11/26/17 05:26 Creatinine 0.5 mg/dL (0.7-1.3) L 11/26/17 05:26 Est GFR ( Amer) > 60.0 ml/min (>90) 11/26/17 05:26 Est GFR (Non-Af Amer) > 60.0 ml/min 11/26/17 05:26 BUN/Creatinine Ratio 38.0 11/26/17 05:26 Glucose 81 mg/dL (70-105) 11/26/17 05:26 POC Glucose 146 MG/DL (70 - 105) H 11/26/17 11:31 Calcium 9.5 mg/dL (8.6-10.3) 11/26/17 05:26 Phosphorus 3.9 mg/dL (2.5-5.0) 11/24/17 19:40 Magnesium 2.2 mg/dL (1.9-2.7) 11/24/17 19:40 Total Bilirubin 1.0 mg/dL (0.3-1.0) 11/26/17 05:26 AST 20 U/L (13-39) 11/26/17 05:26 ALT 5 U/L (7-52) L 11/26/17 05:26 Alkaline Phosphatase 83 U/L (34-104) 11/26/17 05:26 Ammonia 48 umol/L (16-53) 11/26/17 05:26 B-Natriuretic Peptide 292.0 pg/mL (5.0-100.0) H 11/26/17 05:26 Total Protein 7.6 gm/dL (6.0-8.3) 11/26/17 05:26 Albumin 3.4 gm/dL (4.2-5.5) L 11/26/17 05:26 Globulin 4.2 gm/dL 11/26/17 05:26 Albumin/Globulin Ratio 0.8 (1.0-1.8) L 11/26/17 05:26 TSH 2.55 uIU/ml (0.34-5.60) 11/24/17 19:40 Urine Source CLEAN C 11/25/17 15:36 Urine Color YELLOW 11/25/17 15:36 Urine Clarity CLEAR (CLEAR) 11/25/17 15:36 Urine pH 8.5 (4.6 - 8.0) 11/25/17 15:36 Ur Specific [place] 1.010 (1.005-1.030) 11/25/17 15:36 Urine Protein TRACE mg/dL (NEGATIVE) 11/25/17 15:36 Urine Glucose (UA) NEGATIVE mg/dL (NEGATIVE) 11/25/17 15:36 Urine Clinitest Cancelled 11/25/17 15:40 Urine Ketones NEGATIVE mg/dL (NEGATIVE) 11/25/17 15:36 Urine Blood NEGATIVE (NEGATIVE) 11/25/17 15:36 Urine Nitrate NEGATIVE (NEGATIVE) 11/25/17 15:36 Urine Bilirubin NEGATIVE (NEGATIVE) 11/25/17 15:36 Urine Urobilinogen 0.2 E.U./dL (0.2 - 1.0) 11/25/17 15:36 Ur Leukocyte Esterase NEGATIVE (NEGATIVE) 11/25/17 15:36 Ur Micro Indicated Cancelled 11/25/17 15:40 Urine RBC 2-5 /hpf (0-5) H 11/25/17 15:36 Urine WBC 0-2 /hpf (0-5) 11/25/17 15:36 Ur Epithelial Cells FEW /lpf (FEW) 11/25/17 15:36 Calcium Oxalate Crystal Cancelled 11/25/17 15:40 Uric Acid Crystals Cancelled 11/25/17 15:40 Triple Phos Crystals Cancelled 11/25/17 15:40 Other Crystals Cancelled 11/25/17 15:40 Amorphous Sediment Cancelled 11/25/17 15:40 Urine Bacteria FEW /hpf (NONE SEEN) 11/25/17 15:36 Hyaline Casts Cancelled 11/25/17 15:40 Fine Granular Casts Cancelled 11/25/17 15:40 Coarse Granular Casts Cancelled 11/25/17 15:40 Waxy Casts Cancelled 11/25/17 15:40 RBC Casts Cancelled 11/25/17 15:40 WBC Casts Cancelled 11/25/17 15:40 Other Casts Cancelled 11/25/17 15:40 Urine Mucus FEW /lpf (FEW) 11/25/17 15:36 Urine Other Cancelled 11/25/17 15:40 Urine Trichomonas Cancelled 11/25/17 15:40 Urine Yeast Cancelled 11/25/17 15:40 Urine Sperm Cancelled 11/25/17 15:40 Ur Oval Fat Bodies Cancelled 11/25/17 15:40 - Physical Exam Vitals and I&O: Vital Signs Temp 98.1 F 11/26/17 11:49 Pulse 75 11/26/17 11:49 Resp 18 11/26/17 11:49 BP 104/46 11/26/17 11:49 Pulse Ox 90 11/26/17 11:49 Intake & Output 11/25/17 11/26/17 11/26/17 18:59 06:59 18:59 Intake Total 50 700 820 Balance 50 700 820 Weight (lbs) 208 lb 208 lb Intake: Intake, IV Amount 50 50 Cefepime 1 gm In Dextrose 50 50 5% 50 ml @ 100 mls/hr IV Q12H [facility] Rx#:[id number] Oral 650 Tube Feeding 520 Other 300 Other: # Voids 4 3 # Bowel Movements 2 2 Stool Characteristics Formed Soft Weight Source Bedscale Bedscale Active Medications: Current Medications Acetaminophen (Tylenol) 325 mg GT Q4HR PRN PRN Reason: Pain(1-3) or Fever >101 Stop: 01/23/18 23:24 Acetaminophen (Tylenol) 650 mg GT Q4H PRN PRN Reason: Pain(4-6) Or Fever above 101 Stop: 01/23/18 23:27 Al Hydrox/Mg Hydrox/Simethicone (Maalox) 30 ml GT Q4HR PRN PRN Reason: GI UPSET Stop: 01/23/18 23:24 Albuterol Sulfate (Albuterol 2.5mg/3ml Neb Ud) 2.5 mg HHN QIDRT [facility] Stop: 01/24/18 06:59 Last Admin: 11/26/17 10:45 Dose: 2.5 mg Ascorbic Acid (Vitamin C) 500 mg GT DAILY [facility] Stop: 01/24/18 08:59 Last Admin: 11/26/17 09:30 Dose: 500 mg Carbidopa/Levodopa (Sinemet 25mg-100 Mg) 1 tab GT Q8HR [facility] Stop: 01/24/18 12:59 Last Admin: 11/26/17 13:12 Dose: 1 tab Clonazepam (Klonopin) 0.5 mg GT Q8HR [facility]; Protocol Stop: 01/25/18 04:59 Last Admin: 11/26/17 13:12 Dose: 0.5 mg Docusate Sodium (Colace) 200 mg GT BID [facility] Stop: 01/24/18 08:59 Last Admin: 11/26/17 09:31 Dose: 200 mg Guaifenesin (Robitussin) 200 mg GT Q4HR PRN PRN Reason: Cough or Congestion Stop: 01/23/18 23:27 Cefepime HCl 1 gm/ Dextrose 50 mls @ 100 mls/hr IV Q12H [facility] Stop: 01/24/18 02:29 Last Admin: 11/26/17 13:31 Dose: 100 mls/hr Sodium Chloride (Nacl 0.45%) 1,000 mls @ 40 mls/hr IV .Q24H [facility] Stop: 01/24/18 13:59 Last Admin: 11/25/17 15:00 Dose: 40 mls/hr Insulin Aspart (Novolog) 0 units SUBQ ACHS [facility]; Protocol Stop: 01/24/18 07:29 Last Admin: 11/26/17 11:36 Dose: Not Given Ipratropium [place] (Atrovent Neb 0.5mg/2.5ml) 0.5 mg HHN QIDRT [facility] Stop: 01/24/18 06:59 Last Admin: 11/26/17 10:45 Dose: 0.5 mg Lactobacillus Rhamnosus (Culturelle 15b) 1 each PO DAILY [facility] Stop: 01/25/18 13:59 Magnesium Hydroxide (Milk Of Magnesia) 30 ml GT Q4HR PRN PRN Reason: GI UPSET Stop: 01/23/18 23:24 Miscellaneous (Probiotic Screen) 1 ea MC PRN PRN PRN Reason: PROTOCOL Stop: 01/25/18 11:01 Ondansetron HCl (Zofran) 4 mg IV Q8H PRN PRN Reason: Nausea / Vomiting Stop: 01/23/18 23:27 Pantoprazole Sodium (Protonix) 40 mg GT DAILY [facility] Stop: 01/24/18 08:59 Last Admin: 11/26/17 09:30 Dose: 40 mg Valproate Sodium (Depakene) 900 mg GT BID [facility]; Protocol Stop: 01/24/18 08:59 Last Admin: 11/26/17 09:31 Dose: 900 mg Zinc Sulfate (Zinc Sulfate) 220 mg GT DAILY [facility] Stop: 01/24/18 08:59 Last Admin: 11/26/17 09:30 Dose: 220 mg General: alert HEENT: NC/AT, PERRLA Neck: Supple Lungs: CTAB Cardiovascular: RRR, Normal S1, Normal S2, without murmur Abdomen: soft, non-tender, non-distended, positive bowel sound Neurological: unable to follow command - Procedures Procedures: Procedures Procedure Code Date BILE TRACT SURGERY PROCEDURE 64533 08/20/16 BYPASS COMMON BILE DUCT TO SMALL INTESTINE, OPEN APPROACH [id number] 08/20/16 CHANGE FEEDING DEVICE IN UP INTEST TRACT, COPY HOLDER APPROACH [id number] 03/10/17 CHANGE GASTROSTOMY TUBE 92115 07/18/16 CHEST X-RAY NEC 87.49 12/05/[address] GASTROSTOMY TUBE 41399 05/19/15 EXTIRPATION OF MATTER FROM STOMACH, ENDO [id number] 05/19/15 FLUOROSCOPY OF GALLBLADDER & BILE DUCT USING L OSM CONTRAST [id number] 08/20/16 FUSE BILE DUCTS AND BOWEL 28308 08/20/16 INDIVID PSYCHOTHERAP NEC 94.39 05/19/08 INITIAL INSERT OF SING CHAMB DEV, RATE RESPONSIVE 37.82 12/05/08 INITIAL INSERT OF TRANS. LEADS INTO VENTRICLE 37.71 12/05/08 INSERT HEART PM VENTRICULAR 50377 12/05/08 INSERTION OF ENDOTRACHEAL AIRWAY INTO TRACHEA, VIA OPENING [id number] 08/20/16 INSERTION OF FEEDING DEVICE INTO STOMACH, ENDO [id number] 05/19/15 INSPECTION OF HEPATOBILIARY DUCT, OPEN APPROACH [id number] 08/20/16 OTHER GROUP THERAPY 94.44 02/13/11 PERCUTANEOUS [ENDOSCOPIC] GASTROSTOMY [PEG] 43.11 10/03/13 RECREATIONAL THERAPY 93.81 02/13/11 RELEASE LARGE INTESTINE, OPEN APPROACH [id number] 08/20/16 REMOVAL OF GALLBLADDER 39936 08/20/16 RESECTION OF GALLBLADDER, OPEN APPROACH [id number] 08/20/16 RESECTION OF RIGHT LARGE INTESTINE, OPEN APPROACH [id number] 08/20/16 RESPIRATORY VENTILATION, 24-96 CONSECUTIVE HOURS [id number] 08/20/16 VENOUS CUTDOWN 38.94 12/05/08 VENT MGMT INPAT INIT DAY 81988 08/20/16 X-RAY & PACEMAKER INSERTION 99117 12/05/08 Internal Medicine Assmt/Plan - Assessment Assessment: pna abdominal pain htn dementia schizoaffective hx afib pacemaker status hx stroke dm - Plan Plan: continue with ivabx bronchodilators supplemental o2 follow up labs in am continue current plan of care Nutritional Asmnt/Malnutr-PDOC - Dietary Evaluation Malnutrition Findings (Please click <Entered> for more info): Nutritional Asmnt/Malnutrition Start: 11/25/17 15: 10 Text: Status: Complete Freq: Protocol: Document 11/25/17 15:11 JESSIKA (Rec: 11/25/17 15:33 [id number]) Nutritional Asmnt/Malnutrition Patient General Information Nutritional Screening High Risk Diagnosis PNA, abd pain Pertinent Medical Hx/Surgical Hx DM, Asthma/COPD, PUD/GERD, thyroid, Gtube, Parkinson, epilepsy, afib, cardiac pacemaker, dysphagia, oral pharyngeal phase, anemia Subjective Information Pt seen lying in bed at time of visit, awake but not able to communicate. Verified TF running at 65ml/hr at this time. Per nurse note 11/25, abdomen large and non- distended, firm, no residual noted in the morning. Current Diet Order/ Nutrition Support Jevity 1.2 at 65ml/hr x 20hr Pertinent Medications vit C, colace, theragran, protonix, nacl 0.45%, zinc Pertinent Labs 11/24 Cr 0.6, glucose 113 11/25 POC 97-126 Nutritional Hx/Data Height 5 ft 8 in Height (Calculated Centimeters) 172.7 Current Weight (lbs) 209 lb Weight (Calculated Kilograms) 94.8 Weight (Calculated Grams) 01659.8 [place] Body Weight 154 Body Mass Index (BMI) 31.7 Weight Status Obese GI Symptoms GI Symptoms None Last BM none Difficult in: None Usual diet at home Jevity 1.5 at 65ml/hr x 20hr at care facility per chart Skin Integrity/Comment: scar to abd, discoloration to right upper thigh and left lower leg Estimated Nutritional Goals BEE in Kcals: Adj wt of IBW Calories/Kcals/Kg 23-27 Kcals Calculated 8753-3426 Protein: Adj wt of IBW Protein g/k Protein Calculated 76 Fluid: ml 1748-2052ml (1ml/kcal) Nutritional Problem 1. Problem Problem increased nutrition needs Etiology increased metabolic demand Signs/Symptoms: dx of PNA Intervention/Recommendation Comments 1. Continue with current TF regimen. It provides 1560kcal, 72g protein, 1049ml free water, meeting 90% of calorie needs and 95% of protein needs . 2. Monitor TF rate, tolerance, wt, skin integrity and labs 3. F/U as moderate risk in 3-5 days, 11/28-11/30 Expected Outcomes/Goals Expected Outcomes/Goals 1. Pt to meet at least 75% of nutritional needs via nutrition support with tolerance 2. Wt stability, skin to remain intact, labs to approach WNL.
[2017-11-26] MEDS: Multivitamin w/ Minerals Tab GT SCH (14:09)
[2017-11-26] MEDS: Lactobacillus Rhamnosus GG 15 Billion CFU CAP.SPRINK PO SCH (14:09)
[2017-11-26] MEDS: Sodium Chloride 0.45% 1,000 ML IV SCH (14:14)
[2017-11-27] MEDS: INSULIN ASPART, RECOMBINANT 100 UNITS/ML SUBQ SCH ×3 (06:35→22:25)
[2017-11-27] MEDS: Ipratropium Neb 0.5 mg/2.5 mL UD HHN SCH ×4 (06:46→19:08)
[2017-11-27] MEDS: Albuterol Nebulizer 2.5mg/3mL HHN SCH ×4 (06:46→19:08)
[2017-11-27 06:50] LABS: % BASOPHILS 0.1 % (0.0-2.0); % LYMPHOCYTES 17.2 % (20.0-50.0); % MONOCYTES 10.1 % (2.0-10.0); % NEUTROPHILS 67.6 % (40.0-80.0); EOSINOPHILE ABSOLUTE 0.3 Th/cmm (0.1-0.4); HEMATOCRIT 39.1 % (41.0-60); HEMOGLOBIN 13.3 gm/dL (12-16); MEAN CELL VOLUME 90.9 fl (80-99); MEAN CORPUSCULAR HGB CONC 34.1 pg (28.0-36.0); MONOCYTE ABSOLUTE 0.6 Th/cmm (0.3-1.0); NEUTROPHILE ABSOLUTE 3.7 Th/cmm (1.8-8.0); PLATELET COUNT 162 Th/cmm (150-400); RED CELL DISTRIBUTION WIDTH 14.2 % (11.5-20.0); WHITE BLOOD COUNT 5.6 Th/cmm (4.8-10.8)
[2017-11-27 07:07] LABS: ANION GAP 9.6 (7.0-16.0); BUN - UREA NITROGEN 13 mg/dL (7-25); CALCIUM SERUM 9.3 mg/dL (8.6-10.3); CARBON DIOXIDE 30.9 mEq/L (21.0-31.0); CHLORIDE 102 mEq/L (98-107); CREATININE - SERUM 0.5 mg/dL (0.7-1.3); GFR AFRICAN-AMERICAN > 60.0 ml/min (>90); GFR NON AFRICAN-AMERICAN > 60.0 ml/min; GLUCOSE 99 mg/dL (70-105); POTASSIUM SERUM 4.5 mEq/L (3.5-5.1); SODIUM SERUM 138 mEq/L (136-145)
--- NOTE | 2017-11-27 08:42 | Diagnostic Imaging Report ---
Portable chest x-ray Time: 0 753 History: Pneumonia Allowing for portable technique the heart size is normal. No focal pulmonary parenchymal processes. No hilar or mediastinal abnormalities. Impression: No acute abnormalities.
--- NOTE | 2017-11-27 09:50 | GI Progress Note ---
Subjective - Review of Systems Service Date: 11/27/17 Subjective: EVENTS NOTED. DILSHAD GT FEEDS. Objective - Results Result Diagrams: 11/27/17 05:50 11/27/17 05:50 Recent Labs: Laboratory Last Values WBC 5.6 Th/cmm (4.8-10.8) 11/27/17 05:50 RBC 4.30 Mil/cmm (3.80-5.80) 11/27/17 05:50 Hgb 13.3 gm/dL (12-16) 11/27/17 05:50 Hct 39.1 % (41.0-60) L 11/27/17 05:50 MCV 90.9 fl (80-99) 11/27/17 05:50 MCH 31.0 pg (27.0-31.0) 11/27/17 05:50 MCHC Differential 34.1 pg (28.0-36.0) 11/27/17 05:50 RDW 14.2 % (11.5-20.0) 11/27/17 05:50 Plt Count 162 Th/cmm (150-400) 11/27/17 05:50 MPV 10.0 fl 11/27/17 05:50 Neutrophils % 67.6 % (40.0-80.0) 11/27/17 05:50 Lymphocytes % 17.2 % (20.0-50.0) L 11/27/17 05:50 Monocytes % 10.1 % (2.0-10.0) H 11/27/17 05:50 Eosinophils % 5.0 % (0.0-5.0) 11/27/17 05:50 Basophils % 0.1 % (0.0-2.0) 11/27/17 05:50 Sodium 138 mEq/L (136-145) 11/27/17 05:50 Potassium 4.5 mEq/L (3.5-5.1) 11/27/17 05:50 Chloride 102 mEq/L (98-107) 11/27/17 05:50 Carbon Dioxide 30.9 mEq/L (21.0-31.0) 11/27/17 05:50 Anion Gap 9.6 (7.0-16.0) 11/27/17 05:50 BUN 13 mg/dL (7-25) 11/27/17 05:50 Creatinine 0.5 mg/dL (0.7-1.3) L 11/27/17 05:50 Est GFR ( Amer) > 60.0 ml/min (>90) 11/27/17 05:50 Est GFR (Non-Af Amer) > 60.0 ml/min 11/27/17 05:50 BUN/Creatinine Ratio 26.0 11/27/17 05:50 Glucose 99 mg/dL (70-105) 11/27/17 05:50 POC Glucose 111 MG/DL (70 - 105) H 11/27/17 06:23 Calcium 9.3 mg/dL (8.6-10.3) 11/27/17 05:50 Phosphorus 3.9 mg/dL (2.5-5.0) 11/24/17 19:40 Magnesium 2.2 mg/dL (1.9-2.7) 11/24/17 19:40 Total Bilirubin 1.0 mg/dL (0.3-1.0) 11/26/17 05:26 AST 20 U/L (13-39) 11/26/17 05:26 ALT 5 U/L (7-52) L 11/26/17 05:26 Alkaline Phosphatase 83 U/L (34-104) 11/26/17 05:26 Ammonia 48 umol/L (16-53) 11/26/17 05:26 B-Natriuretic Peptide 292.0 pg/mL (5.0-100.0) H 11/26/17 05:26 Total Protein 7.6 gm/dL (6.0-8.3) 11/26/17 05:26 Albumin 3.4 gm/dL (4.2-5.5) L 11/26/17 05:26 Globulin 4.2 gm/dL 11/26/17 05:26 Albumin/Globulin Ratio 0.8 (1.0-1.8) L 11/26/17 05:26 TSH 2.55 uIU/ml (0.34-5.60) 11/24/17 19:40 Urine Source CLEAN C 11/25/17 15:36 Urine Color YELLOW 11/25/17 15:36 Urine Clarity CLEAR (CLEAR) 11/25/17 15:36 Urine pH 8.5 (4.6 - 8.0) 11/25/17 15:36 Ur Specific [place] 1.010 (1.005-1.030) 11/25/17 15:36 Urine Protein TRACE mg/dL (NEGATIVE) 11/25/17 15:36 Urine Glucose (UA) NEGATIVE mg/dL (NEGATIVE) 11/25/17 15:36 Urine Clinitest Cancelled 11/25/17 15:40 Urine Ketones NEGATIVE mg/dL (NEGATIVE) 11/25/17 15:36 Urine Blood NEGATIVE (NEGATIVE) 11/25/17 15:36 Urine Nitrate NEGATIVE (NEGATIVE) 11/25/17 15:36 Urine Bilirubin NEGATIVE (NEGATIVE) 11/25/17 15:36 Urine Urobilinogen 0.2 E.U./dL (0.2 - 1.0) 11/25/17 15:36 Ur Leukocyte Esterase NEGATIVE (NEGATIVE) 11/25/17 15:36 Ur Micro Indicated Cancelled 11/25/17 15:40 Urine RBC 2-5 /hpf (0-5) H 11/25/17 15:36 Urine WBC 0-2 /hpf (0-5) 11/25/17 15:36 Ur Epithelial Cells FEW /lpf (FEW) 11/25/17 15:36 Calcium Oxalate Crystal Cancelled 11/25/17 15:40 Uric Acid Crystals Cancelled 11/25/17 15:40 Triple Phos Crystals Cancelled 11/25/17 15:40 Other Crystals Cancelled 11/25/17 15:40 Amorphous Sediment Cancelled 11/25/17 15:40 Urine Bacteria FEW /hpf (NONE SEEN) 11/25/17 15:36 Hyaline Casts Cancelled 11/25/17 15:40 Fine Granular Casts Cancelled 11/25/17 15:40 Coarse Granular Casts Cancelled 11/25/17 15:40 Waxy Casts Cancelled 11/25/17 15:40 RBC Casts Cancelled 11/25/17 15:40 WBC Casts Cancelled 11/25/17 15:40 Other Casts Cancelled 11/25/17 15:40 Urine Mucus FEW /lpf (FEW) 11/25/17 15:36 Urine Other Cancelled 11/25/17 15:40 Urine Trichomonas Cancelled 11/25/17 15:40 Urine Yeast Cancelled 11/25/17 15:40 Urine Sperm Cancelled 11/25/17 15:40 Ur Oval Fat Bodies Cancelled 11/25/17 15:40 - Physical Exam Vitals and I&O: Vital Signs Temp 97.2 F 11/27/17 08:00 Pulse 106 11/27/17 08:00 Resp 18 11/27/17 08:00 BP 125/49 11/27/17 08:00 Pulse Ox 99 11/27/17 08:00 Intake & Output 11/26/17 11/27/17 11/27/17 18:59 06:59 18:59 Intake Total 1799.333 Balance 1799.333 Weight (lbs) 94.347 kg Intake: Intake, IV Amount 979.333 Cefepime 1 gm In Dextrose 50 5% 50 ml @ 100 mls/hr IV Q12H [facility] Rx#:[id number] Sodium Chloride 0.45% 1, 929.333 000 ml @ 40 mls/hr IV . Q24H [facility] Rx#:[id number] Tube Feeding 520 Other 300 Other: # Voids 3 # Bowel Movements 2 Stool Characteristics Soft Soft Weight Source Bedscale Active Medications: Current Medications Acetaminophen (Tylenol) 325 mg GT Q4HR PRN PRN Reason: Pain(1-3) or Fever >101 Stop: 01/23/18 23:24 Acetaminophen (Tylenol) 650 mg GT Q4H PRN PRN Reason: Pain(4-6) Or Fever above 101 Stop: 01/23/18 23:27 Al Hydrox/Mg Hydrox/Simethicone (Maalox) 30 ml GT Q4HR PRN PRN Reason: GI UPSET Stop: 01/23/18 23:24 Albuterol Sulfate (Albuterol 2.5mg/3ml Neb Ud) 2.5 mg HHN QIDRT [facility] Stop: 01/24/18 06:59 Last Admin: 11/27/17 06:46 Dose: 2.5 mg Ascorbic Acid (Vitamin C) 500 mg GT DAILY [facility] Stop: 01/24/18 08:59 Last Admin: 11/26/17 09:30 Dose: 500 mg Carbidopa/Levodopa (Sinemet 25mg-100 Mg) 1 tab GT Q8HR [facility] Stop: 01/24/18 12:59 Last Admin: 11/27/17 04:30 Dose: 1 tab Clonazepam (Klonopin) 0.5 mg GT Q8HR [facility]; Protocol Stop: 01/25/18 04:59 Last Admin: 11/27/17 04:30 Dose: 0.5 mg Docusate Sodium (Colace) 200 mg GT BID [facility] Stop: 01/24/18 08:59 Last Admin: 11/26/17 17:16 Dose: 200 mg Guaifenesin (Robitussin) 200 mg GT Q4HR PRN PRN Reason: Cough or Congestion Stop: 01/23/18 23:27 Cefepime HCl 1 gm/ Dextrose 50 mls @ 100 mls/hr IV Q12H [facility] Stop: 01/24/18 02:29 Last Admin: 11/27/17 03:30 Dose: 100 mls/hr Sodium Chloride (Nacl 0.45%) 1,000 mls @ 40 mls/hr IV .Q24H [facility] Stop: 01/24/18 13:59 Last Admin: 11/26/17 14:14 Dose: 40 mls/hr Insulin Aspart (Novolog) 0 units SUBQ ACHS [facility]; Protocol Stop: 01/24/18 07:29 Last Admin: 11/27/17 06:35 Dose: Not Given Ipratropium [place] (Atrovent Neb 0.5mg/2.5ml) 0.5 mg HHN QIDRT [facility] Stop: 01/24/18 06:59 Last Admin: 11/27/17 06:46 Dose: 0.5 mg Lactobacillus Rhamnosus (Culturelle 15b) 1 each PO DAILY [facility] Stop: 01/25/18 13:59 Last Admin: 11/26/17 14:09 Dose: 1 each Magnesium Hydroxide (Milk Of Magnesia) 30 ml GT Q4HR PRN PRN Reason: GI UPSET Stop: 01/23/18 23:24 Miscellaneous (Probiotic Screen) 1 ea MC PRN PRN PRN Reason: PROTOCOL Stop: 01/25/18 11:01 Ondansetron HCl (Zofran) 4 mg IV Q8H PRN PRN Reason: Nausea / Vomiting Stop: 01/23/18 23:27 Pantoprazole Sodium (Protonix) 40 mg GT DAILY [facility] Stop: 01/24/18 08:59 Last Admin: 11/26/17 09:30 Dose: 40 mg Valproate Sodium (Depakene) 900 mg GT BID [facility]; Protocol Stop: 01/24/18 08:59 Last Admin: 11/26/17 17:16 Dose: 900 mg Zinc Sulfate (Zinc Sulfate) 220 mg GT DAILY [facility] Stop: 01/24/18 08:59 Last Admin: 11/26/17 09:30 Dose: 220 mg General: No acute distress HEENT: Atraumatic Neck: Supple Cardiovascular: Regular rate Lungs: Clear to auscultation, Normal air movement Abdomen: Bowel sounds, Soft, Other (INTACT GT), no Tender - Procedures Procedures: Procedures Procedure Code Date BILE TRACT SURGERY PROCEDURE 29975 08/20/16 BYPASS COMMON BILE DUCT TO SMALL INTESTINE, OPEN APPROACH [id number] 08/20/16 CHANGE FEEDING DEVICE IN UP INTEST TRACT, BOOSTER PLANT OPERATOR APPROACH [id number] 03/10/17 CHANGE GASTROSTOMY TUBE 38535 07/18/16 CHEST X-RAY NEC 87.49 12/05/[address] GASTROSTOMY TUBE 22704 05/19/15 EXTIRPATION OF MATTER FROM STOMACH, ENDO [id number] 05/19/15 FLUOROSCOPY OF GALLBLADDER & BILE DUCT USING L OSM CONTRAST [id number] 08/20/16 FUSE BILE DUCTS AND BOWEL 61542 08/20/16 INDIVID PSYCHOTHERAP NEC 94.39 05/19/08 INITIAL INSERT OF SING CHAMB DEV, RATE RESPONSIVE 37.82 12/05/08 INITIAL INSERT OF TRANS. LEADS INTO VENTRICLE 37.71 12/05/08 INSERT HEART PM VENTRICULAR 00492 12/05/08 INSERTION OF ENDOTRACHEAL AIRWAY INTO TRACHEA, VIA OPENING [id number] 08/20/16 INSERTION OF FEEDING DEVICE INTO STOMACH, ENDO [id number] 05/19/15 INSPECTION OF HEPATOBILIARY DUCT, OPEN APPROACH [id number] 08/20/16 OTHER GROUP THERAPY 94.44 02/13/11 PERCUTANEOUS [ENDOSCOPIC] GASTROSTOMY [PEG] 43.11 10/03/13 RECREATIONAL THERAPY 93.81 02/13/11 RELEASE LARGE INTESTINE, OPEN APPROACH [id number] 08/20/16 REMOVAL OF GALLBLADDER 57942 08/20/16 RESECTION OF GALLBLADDER, OPEN APPROACH [id number] 08/20/16 RESECTION OF RIGHT LARGE INTESTINE, OPEN APPROACH [id number] 08/20/16 RESPIRATORY VENTILATION, 24-96 CONSECUTIVE HOURS [id number] 08/20/16 VENOUS CUTDOWN 38.94 12/05/08 VENT MGMT INPAT IN DAY 98022 08/20/16 X-RAY & PACEMAKER INSERTION 35147 12/05/08 Assessment/Plan - Assessment Assessment: IMPRESSION: 1. ABD DISTENSION DUE TO FECAL IMPACTION/ILEUS, NOW RESOLVED. 2. DYSPHAGIA S/P GT. RECS: 1. GT FEEDS DILSHAD. 2. STOOL SOFTENERS. 3. GT CARE. GI BE STABLE.
[2017-11-27] MEDS: Docusate Sodium 100 mg/10 mL UD GT SCH ×2 (09:54→17:35)
[2017-11-27] MEDS: Multivitamin w/ Minerals Tab GT SCH (09:54)
[2017-11-27] MEDS: Lactobacillus Rhamnosus GG 15 Billion CFU CAP.SPRINK PO SCH (09:54)
[2017-11-27] MEDS: Pantoprazole 40 mg/Packet GT SCH (09:57)
--- NOTE | 2017-11-27 12:20 | Internal Medicine Prog Note ---
Internal Medicine Subjective - Subjective Service Date: 11/27/17 Patient seen and examined:: with staff Patient is:: awake, verbal Per staff patient has:: tolerating meds Internal Medicine Objective - Results Result Diagrams: 11/27/17 05:50 11/27/17 05:50 Recent Labs: Laboratory Last Values WBC 5.6 Th/cmm (4.8-10.8) 11/27/17 05:50 RBC 4.30 Mil/cmm (3.80-5.80) 11/27/17 05:50 Hgb 13.3 gm/dL (12-16) 11/27/17 05:50 Hct 39.1 % (41.0-60) L 11/27/17 05:50 MCV 90.9 fl (80-99) 11/27/17 05:50 MCH 31.0 pg (27.0-31.0) 11/27/17 05:50 MCHC Differential 34.1 pg (28.0-36.0) 11/27/17 05:50 RDW 14.2 % (11.5-20.0) 11/27/17 05:50 Plt Count 162 Th/cmm (150-400) 11/27/17 05:50 MPV 10.0 fl 11/27/17 05:50 Neutrophils % 67.6 % (40.0-80.0) 11/27/17 05:50 Lymphocytes % 17.2 % (20.0-50.0) L 11/27/17 05:50 Monocytes % 10.1 % (2.0-10.0) H 11/27/17 05:50 Eosinophils % 5.0 % (0.0-5.0) 11/27/17 05:50 Basophils % 0.1 % (0.0-2.0) 11/27/17 05:50 Sodium 138 mEq/L (136-145) 11/27/17 05:50 Potassium 4.5 mEq/L (3.5-5.1) 11/27/17 05:50 Chloride 102 mEq/L (98-107) 11/27/17 05:50 Carbon Dioxide 30.9 mEq/L (21.0-31.0) 11/27/17 05:50 Anion Gap 9.6 (7.0-16.0) 11/27/17 05:50 BUN 13 mg/dL (7-25) 11/27/17 05:50 Creatinine 0.5 mg/dL (0.7-1.3) L 11/27/17 05:50 Est GFR ( Amer) > 60.0 ml/min (>90) 11/27/17 05:50 Est GFR (Non-Af Amer) > 60.0 ml/min 11/27/17 05:50 BUN/Creatinine Ratio 26.0 11/27/17 05:50 Glucose 99 mg/dL (70-105) 11/27/17 05:50 POC Glucose 111 MG/DL (70 - 105) H 11/27/17 06:23 Calcium 9.3 mg/dL (8.6-10.3) 11/27/17 05:50 Phosphorus 3.9 mg/dL (2.5-5.0) 11/24/17 19:40 Magnesium 2.2 mg/dL (1.9-2.7) 11/24/17 19:40 Total Bilirubin 1.0 mg/dL (0.3-1.0) 11/26/17 05:26 AST 20 U/L (13-39) 11/26/17 05:26 ALT 5 U/L (7-52) L 11/26/17 05:26 Alkaline Phosphatase 83 U/L (34-104) 11/26/17 05:26 Ammonia 48 umol/L (16-53) 11/26/17 05:26 B-Natriuretic Peptide 292.0 pg/mL (5.0-100.0) H 11/26/17 05:26 Total Protein 7.6 gm/dL (6.0-8.3) 11/26/17 05:26 Albumin 3.4 gm/dL (4.2-5.5) L 11/26/17 05:26 Globulin 4.2 gm/dL 11/26/17 05:26 Albumin/Globulin Ratio 0.8 (1.0-1.8) L 11/26/17 05:26 TSH 2.55 uIU/ml (0.34-5.60) 11/24/17 19:40 Urine Source CLEAN C 11/25/17 15:36 Urine Color YELLOW 11/25/17 15:36 Urine Clarity CLEAR (CLEAR) 11/25/17 15:36 Urine pH 8.5 (4.6 - 8.0) 11/25/17 15:36 Ur Specific [place] 1.010 (1.005-1.030) 11/25/17 15:36 Urine Protein TRACE mg/dL (NEGATIVE) 11/25/17 15:36 Urine Glucose (UA) NEGATIVE mg/dL (NEGATIVE) 11/25/17 15:36 Urine Clinitest Cancelled 11/25/17 15:40 Urine Ketones NEGATIVE mg/dL (NEGATIVE) 11/25/17 15:36 Urine Blood NEGATIVE (NEGATIVE) 11/25/17 15:36 Urine Nitrate NEGATIVE (NEGATIVE) 11/25/17 15:36 Urine Bilirubin NEGATIVE (NEGATIVE) 11/25/17 15:36 Urine Urobilinogen 0.2 E.U./dL (0.2 - 1.0) 11/25/17 15:36 Ur Leukocyte Esterase NEGATIVE (NEGATIVE) 11/25/17 15:36 Ur Micro Indicated Cancelled 11/25/17 15:40 Urine RBC 2-5 /hpf (0-5) H 11/25/17 15:36 Urine WBC 0-2 /hpf (0-5) 11/25/17 15:36 Ur Epithelial Cells FEW /lpf (FEW) 11/25/17 15:36 Calcium Oxalate Crystal Cancelled 11/25/17 15:40 Uric Acid Crystals Cancelled 11/25/17 15:40 Triple Phos Crystals Cancelled 11/25/17 15:40 Other Crystals Cancelled 11/25/17 15:40 Amorphous Sediment Cancelled 11/25/17 15:40 Urine Bacteria FEW /hpf (NONE SEEN) 11/25/17 15:36 Hyaline Casts Cancelled 11/25/17 15:40 Fine Granular Casts Cancelled 11/25/17 15:40 Coarse Granular Casts Cancelled 11/25/17 15:40 Waxy Casts Cancelled 11/25/17 15:40 RBC Casts Cancelled 11/25/17 15:40 WBC Casts Cancelled 11/25/17 15:40 Other Casts Cancelled 11/25/17 15:40 Urine Mucus FEW /lpf (FEW) 11/25/17 15:36 Urine Other Cancelled 11/25/17 15:40 Urine Trichomonas Cancelled 11/25/17 15:40 Urine Yeast Cancelled 11/25/17 15:40 Urine Sperm Cancelled 11/25/17 15:40 Ur Oval Fat Bodies Cancelled 11/25/17 15:40 - Physical Exam Vitals and I&O: Vital Signs Temp 97.8 F 11/27/17 12:00 Pulse 109 11/27/17 12:00 Resp 20 11/27/17 12:00 BP 122/67 11/27/17 12:00 Pulse Ox 100 11/27/17 12:00 Intake & Output 11/26/17 11/27/17 11/27/17 18:59 06:59 18:59 Intake Total 1799.333 Balance 1799.333 Weight (lbs) 208 lb 208 lb Intake: Intake, IV Amount 979.333 Cefepime 1 gm In Dextrose 50 5% 50 ml @ 100 mls/hr IV Q12H [facility] Rx#:[id number] Sodium Chloride 0.45% 1, 929.333 000 ml @ 40 mls/hr IV . Q24H [facility] Rx#:[id number] Tube Feeding 520 Other 300 Other: # Voids 3 # Bowel Movements 2 Stool Characteristics Soft Soft Weight Source Bedscale Estimated Active Medications: Current Medications Acetaminophen (Tylenol) 325 mg GT Q4HR PRN PRN Reason: Pain(1-3) or Fever >101 Stop: 01/23/18 23:24 Acetaminophen (Tylenol) 650 mg GT Q4H PRN PRN Reason: Pain(4-6) Or Fever above 101 Stop: 01/23/18 23:27 Al Hydrox/Mg Hydrox/Simethicone (Maalox) 30 ml GT Q4HR PRN PRN Reason: GI UPSET Stop: 01/23/18 23:24 Albuterol Sulfate (Albuterol 2.5mg/3ml Neb Ud) 2.5 mg HHN QIDRT [facility] Stop: 01/24/18 06:59 Last Admin: 11/27/17 10:40 Dose: 2.5 mg Ascorbic Acid (Vitamin C) 500 mg GT DAILY [facility] Stop: 01/24/18 08:59 Last Admin: 11/27/17 09:54 Dose: 500 mg Carbidopa/Levodopa (Sinemet 25mg-100 Mg) 1 tab GT Q8HR [facility] Stop: 01/24/18 12:59 Last Admin: 11/27/17 04:30 Dose: 1 tab Clonazepam (Klonopin) 0.5 mg GT Q8HR [facility]; Protocol Stop: 01/25/18 04:59 Last Admin: 11/27/17 04:30 Dose: 0.5 mg Docusate Sodium (Colace) 200 mg GT BID [facility] Stop: 01/24/18 08:59 Last Admin: 11/27/17 09:54 Dose: 200 mg Guaifenesin (Robitussin) 200 mg GT Q4HR PRN PRN Reason: Cough or Congestion Stop: 01/23/18 23:27 Cefepime HCl 1 gm/ Dextrose 50 mls @ 100 mls/hr IV Q12H [facility] Stop: 01/24/18 02:29 Last Admin: 11/27/17 03:30 Dose: 100 mls/hr Sodium Chloride (Nacl 0.45%) 1,000 mls @ 40 mls/hr IV .Q24H [facility] Stop: 01/24/18 13:59 Last Admin: 11/26/17 14:14 Dose: 40 mls/hr Insulin Aspart (Novolog) 0 units SUBQ ACHS [facility]; Protocol Stop: 01/24/18 07:29 Last Admin: 11/27/17 06:35 Dose: Not Given Ipratropium [place] (Atrovent Neb 0.5mg/2.5ml) 0.5 mg HHN QIDRT [facility] Stop: 01/24/18 06:59 Last Admin: 11/27/17 10:40 Dose: 0.5 mg Lactobacillus Rhamnosus (Culturelle 15b) 1 each PO DAILY [facility] Stop: 01/25/18 13:59 Last Admin: 11/27/17 09:54 Dose: 1 each Magnesium Hydroxide (Milk Of Magnesia) 30 ml GT Q4HR PRN PRN Reason: GI UPSET Stop: 01/23/18 23:24 Miscellaneous (Probiotic Screen) 1 ea MC PRN PRN PRN Reason: PROTOCOL Stop: 01/25/18 11:01 Ondansetron HCl (Zofran) 4 mg IV Q8H PRN PRN Reason: Nausea / Vomiting Stop: 01/23/18 23:27 Pantoprazole Sodium (Protonix) 40 mg GT DAILY [facility] Stop: 01/24/18 08:59 Last Admin: 11/27/17 09:57 Dose: 40 mg Valproate Sodium (Depakene) 900 mg GT BID [facility]; Protocol Stop: 01/24/18 08:59 Last Admin: 11/27/17 09:53 Dose: 900 mg Zinc Sulfate (Zinc Sulfate) 220 mg GT DAILY [facility] Stop: 01/24/18 08:59 Last Admin: 11/27/17 09:54 Dose: 220 mg General: alert HEENT: NC/AT, PERRLA Neck: Supple Lungs: CTAB Cardiovascular: RRR, Normal S1, Normal S2, without murmur Abdomen: soft, non-tender, non-distended, positive bowel sound Extremities: excoriation Neurological: unable to follow command - Procedures Procedures: Procedures Procedure Code Date BILE TRACT SURGERY PROCEDURE 22153 08/20/16 BYPASS COMMON BILE DUCT TO SMALL INTESTINE, OPEN APPROACH [id number] 08/20/16 CHANGE FEEDING DEVICE IN UP INTEST TRACT, OUTREACH TEAM MEMBER APPROACH [id number] 03/10/17 CHANGE GASTROSTOMY TUBE 05014 07/18/16 CHEST X-RAY NEC 87.49 12/05/[address] GASTROSTOMY TUBE 50113 05/19/15 EXTIRPATION OF MATTER FROM STOMACH, ENDO [id number] 05/19/15 FLUOROSCOPY OF GALLBLADDER & BILE DUCT USING L OSM CONTRAST [id number] 08/20/16 FUSE BILE DUCTS AND BOWEL 39410 08/20/16 INDIVID PSYCHOTHERAP NEC 94.39 05/19/08 INITIAL INSERT OF SING CHAMB DEV, RATE RESPONSIVE 37.82 12/05/08 INITIAL INSERT OF TRANS. LEADS INTO VENTRICLE 37.71 12/05/08 INSERT HEART PM VENTRICULAR 15129 12/05/08 INSERTION OF ENDOTRACHEAL AIRWAY INTO TRACHEA, VIA OPENING [id number] 08/20/16 INSERTION OF FEEDING DEVICE INTO STOMACH, ENDO [id number] 05/19/15 INSPECTION OF HEPATOBILIARY DUCT, OPEN APPROACH [id number] 08/20/16 OTHER GROUP THERAPY 94.44 02/13/11 PERCUTANEOUS [ENDOSCOPIC] GASTROSTOMY [PEG] 43.11 10/03/13 RECREATIONAL THERAPY 93.81 02/13/11 RELEASE LARGE INTESTINE, OPEN APPROACH [id number] 08/20/16 REMOVAL OF GALLBLADDER 02919 08/20/16 RESECTION OF GALLBLADDER, OPEN APPROACH [id number] 08/20/16 RESECTION OF RIGHT LARGE INTESTINE, OPEN APPROACH [id number] 08/20/16 RESPIRATORY VENTILATION, 24-96 CONSECUTIVE HOURS [id number] 08/20/16 VENOUS CUTDOWN 38.94 12/05/08 VENT MGMT INPAT INIT DAY 79145 08/20/16 X-RAY & PACEMAKER INSERTION 22237 12/05/08 Internal Medicine Assmt/Plan - Assessment Assessment: pna abdominal pain htn dementia schizoaffective hx afib pacemaker status hx stroke dm - Plan Plan: continue with ivabx bronchodilators supplemental o2 follow up labs in am continue current plan of care Nutritional Asmnt/Malnutr-PDOC - Dietary Evaluation Malnutrition Findings (Please click <Entered> for more info): Nutritional Asmnt/Malnutrition Start: 11/25/17 15: 10 Text: Status: Complete Freq: Protocol: Document 11/25/17 15:11 BRITTNEY (Rec: 11/25/17 15:33 BRITTNEY [email or web address]) Nutritional Asmnt/Malnutrition Patient General Information Nutritional Screening High Risk Diagnosis PNA, abd pain Pertinent Medical Hx/Surgical Hx DM, Asthma/COPD, PUD/GERD, thyroid, Gtube, Parkinson, epilepsy, afib, cardiac pacemaker, dysphagia, oral pharyngeal phase, anemia Subjective Information Pt seen lying in bed at time of visit, awake but not able to communicate. Verified TF running at 65ml/hr at this time. Per nurse note 11/25, abdomen large and non- distended, firm, no residual noted in the morning. Current Diet Order/ Nutrition Support Jevity 1.2 at 65ml/hr x 20hr Pertinent Medications vit C, colace, theragran, protonix, nacl 0.45%, zinc Pertinent Labs 11/24 Cr 0.6, glucose 113 11/25 POC 97-126 Nutritional Hx/Data Height 5 ft 8 in Height (Calculated Centimeters) 172.7 Current Weight (lbs) 209 lb Weight (Calculated Kilograms) 94.8 Weight (Calculated Grams) 65551.8 [place] Body Weight 154 Body Mass Index (BMI) 31.7 Weight Status Obese GI Symptoms GI Symptoms None Last BM none Difficult in: None Usual diet at home Jevity 1.5 at 65ml/hr x 20hr at care facility per chart Skin Integrity/Comment: scar to abd, discoloration to right upper thigh and left lower leg Estimated Nutritional Goals BEE in Kcals: Adj wt of IBW Calories/Kcals/Kg 23-27 Kcals Calculated 7207-5290 Protein: Adj wt of IBW Protein g/k Protein Calculated 76 Fluid: ml 1748-2052ml (1ml/kcal) Nutritional Problem 1. Problem Problem increased nutrition needs Etiology increased metabolic demand Signs/Symptoms: dx of PNA Intervention/Recommendation Comments 1. Continue with current TF regimen. It provides 1560kcal, 72g protein, 1049ml free water, meeting 90% of calorie needs and 95% of protein needs . 2. Monitor TF rate, tolerance, wt, skin integrity and labs 3. F/U as moderate risk in 3-5 days, 11/28-11/30 Expected Outcomes/Goals Expected Outcomes/Goals 1. Pt to meet at least 75% of nutritional needs via nutrition support with tolerance 2. Wt stability, skin to remain intact, labs to approach WNL.
[2017-11-27] MEDS: Sodium Chloride 0.45% 1,000 ML IV SCH (22:26)
[2017-11-28] MEDS: INSULIN ASPART, RECOMBINANT 100 UNITS/ML SUBQ SCH (06:46)
[2017-11-28 06:54] LABS: % BASOPHILS 0.4 % (0.0-2.0); % EOSINOPHILS 4.7 % (0.0-5.0); % MONOCYTES 10.7 % (2.0-10.0); % NEUTROPHILS 61.2 % (40.0-80.0); EOSINOPHILE ABSOLUTE 0.2 Th/cmm (0.1-0.4); HEMATOCRIT 39.8 % (41.0-60); HEMOGLOBIN 13.1 gm/dL (12-16); LYMPHOCYTE ABSOLUTE 1.2 Th/cmm (1.5-3.0); MEAN CELL VOLUME 91.1 fl (80-99); MEAN CORPUSCULAR HEMOGLOBIN 29.9 pg (27.0-31.0); MEAN CORPUSCULAR HGB CONC 32.8 pg (28.0-36.0); MONOCYTE ABSOLUTE 0.5 Th/cmm (0.3-1.0); NEUTROPHILE ABSOLUTE 3.2 Th/cmm (1.8-8.0); PLATELET COUNT 173 Th/cmm (150-400); RED BLOOD COUNT 4.37 Mil/cmm (3.80-5.80); RED CELL DISTRIBUTION WIDTH 13.6 % (11.5-20.0); WHITE BLOOD COUNT 5.1 Th/cmm (4.8-10.8)
[2017-11-28 07:09] LABS: FOLIC ACID >20.0 ng/mL (>3.0)
[2017-11-28] MEDS: Ipratropium Neb 0.5 mg/2.5 mL UD HHN SCH ×2 (07:12→11:18)
[2017-11-28] MEDS: Albuterol Nebulizer 2.5mg/3mL HHN SCH ×3 (07:12→14:17)
[2017-11-28 07:15] LABS: ANION GAP 9.2 (7.0-16.0); BUN - UREA NITROGEN 12 mg/dL (7-25); CALCIUM SERUM 9.6 mg/dL (8.6-10.3); CARBON DIOXIDE 31.2 mEq/L (21.0-31.0); CHLORIDE 102 mEq/L (98-107); CREATININE - SERUM 0.5 mg/dL (0.7-1.3); GFR AFRICAN-AMERICAN > 60.0 ml/min (>90); GFR NON AFRICAN-AMERICAN > 60.0 ml/min; GLUCOSE 100 mg/dL (70-105); POTASSIUM SERUM 4.4 mEq/L (3.5-5.1); SODIUM SERUM 138 mEq/L (136-145)
--- NOTE | 2017-11-28 08:41 | Diagnostic Imaging Report ---
Portable chest x-ray HISTORY: Pneumonia, cough Compared to prior exam of November 27, 2017, the heart remains enlarged. There is questionable faint parenchymal density within the left lung base. Infiltrate and/or atelectasis cannot be excluded. IMPRESSION: 1. Slight increased density within the left lung base. Pneumonia and/or atelectasis cannot be excluded. Clinical correlation needed.
[2017-11-28] MEDS: Docusate Sodium 100 mg/10 mL UD GT SCH ×2 (09:12→17:59)
[2017-11-28] MEDS: Pantoprazole 40 mg/Packet GT SCH (09:13)
[2017-11-28] MEDS: Lactobacillus Rhamnosus GG 15 Billion CFU CAP.SPRINK PO SCH (09:13)
[2017-11-28] MEDS: Multivitamin w/ Minerals Tab GT SCH (09:13)
--- NOTE | 2017-11-28 13:01 | Internal Medicine Prog Note ---
Internal Medicine Subjective - Subjective Service Date: 11/28/17 ( dc summary [id number]) Patient is:: awake, verbal Per staff patient has:: tolerating meds Internal Medicine Objective - Results Result Diagrams: 11/28/17 05:35 11/28/17 05:35 Recent Labs: Laboratory Last Values WBC 5.1 Th/cmm (4.8-10.8) 11/28/17 05:35 RBC 4.37 Mil/cmm (3.80-5.80) 11/28/17 05:35 Hgb 13.1 gm/dL (12-16) 11/28/17 05:35 Hct 39.8 % (41.0-60) L 11/28/17 05:35 MCV 91.1 fl (80-99) 11/28/17 05:35 MCH 29.9 pg (27.0-31.0) 11/28/17 05:35 MCHC Differential 32.8 pg (28.0-36.0) 11/28/17 05:35 RDW 13.6 % (11.5-20.0) 11/28/17 05:35 Plt Count 173 Th/cmm (150-400) 11/28/17 05:35 MPV 12.0 fl 11/28/17 05:35 Neutrophils % 61.2 % (40.0-80.0) 11/28/17 05:35 Lymphocytes % 23.0 % (20.0-50.0) 11/28/17 05:35 Monocytes % 10.7 % (2.0-10.0) H 11/28/17 05:35 Eosinophils % 4.7 % (0.0-5.0) 11/28/17 05:35 Basophils % 0.4 % (0.0-2.0) 11/28/17 05:35 Sodium 138 mEq/L (136-145) 11/28/17 05:35 Potassium 4.4 mEq/L (3.5-5.1) 11/28/17 05:35 Chloride 102 mEq/L (98-107) 11/28/17 05:35 Carbon Dioxide 31.2 mEq/L (21.0-31.0) H 11/28/17 05:35 Anion Gap 9.2 (7.0-16.0) 11/28/17 05:35 BUN 12 mg/dL (7-25) 11/28/17 05:35 Creatinine 0.5 mg/dL (0.7-1.3) L 11/28/17 05:35 Est GFR ( Amer) > 60.0 ml/min (>90) 11/28/17 05:35 Est GFR (Non-Af Amer) > 60.0 ml/min 11/28/17 05:35 BUN/Creatinine Ratio 24.0 11/28/17 05:35 Glucose 100 mg/dL (70-105) 11/28/17 05:35 POC Glucose 112 MG/DL (70 - 105) H 11/28/17 12:07 Calcium 9.6 mg/dL (8.6-10.3) 11/28/17 05:35 Phosphorus 3.9 mg/dL (2.5-5.0) 11/24/17 19:40 Magnesium 2.2 mg/dL (1.9-2.7) 11/24/17 19:40 Total Bilirubin 1.0 mg/dL (0.3-1.0) 11/26/17 05:26 AST 20 U/L (13-39) 11/26/17 05:26 ALT 5 U/L (7-52) L 11/26/17 05:26 Alkaline Phosphatase 83 U/L (34-104) 11/26/17 05:26 Ammonia 48 umol/L (16-53) 11/26/17 05:26 B-Natriuretic Peptide 292.0 pg/mL (5.0-100.0) H 11/26/17 05:26 Total Protein 7.6 gm/dL (6.0-8.3) 11/26/17 05:26 Albumin 3.4 gm/dL (4.2-5.5) L 11/26/17 05:26 Globulin 4.2 gm/dL 11/26/17 05:26 Albumin/Globulin Ratio 0.8 (1.0-1.8) L 11/26/17 05:26 Vitamin B12 858 pg/mL (232-1245) 11/26/17 05:26 Folic Acid >20.0 ng/mL (>3.0) 11/26/17 05:26 TSH 2.55 uIU/ml (0.34-5.60) 11/24/17 19:40 Urine Source CLEAN C 11/25/17 15:36 Urine Color YELLOW 11/25/17 15:36 Urine Clarity CLEAR (CLEAR) 11/25/17 15:36 Urine pH 8.5 (4.6 - 8.0) 11/25/17 15:36 Ur Specific [place] 1.010 (1.005-1.030) 11/25/17 15:36 Urine Protein TRACE mg/dL (NEGATIVE) 11/25/17 15:36 Urine Glucose (UA) NEGATIVE mg/dL (NEGATIVE) 11/25/17 15:36 Urine Clinitest Cancelled 11/25/17 15:40 Urine Ketones NEGATIVE mg/dL (NEGATIVE) 11/25/17 15:36 Urine Blood NEGATIVE (NEGATIVE) 11/25/17 15:36 Urine Nitrate NEGATIVE (NEGATIVE) 11/25/17 15:36 Urine Bilirubin NEGATIVE (NEGATIVE) 11/25/17 15:36 Urine Urobilinogen 0.2 E.U./dL (0.2 - 1.0) 11/25/17 15:36 Ur Leukocyte Esterase NEGATIVE (NEGATIVE) 11/25/17 15:36 Ur Micro Indicated Cancelled 11/25/17 15:40 Urine RBC 2-5 /hpf (0-5) H 11/25/17 15:36 Urine WBC 0-2 /hpf (0-5) 11/25/17 15:36 Ur Epithelial Cells FEW /lpf (FEW) 11/25/17 15:36 Calcium Oxalate Crystal Cancelled 11/25/17 15:40 Uric Acid Crystals Cancelled 11/25/17 15:40 Triple Phos Crystals Cancelled 11/25/17 15:40 Other Crystals Cancelled 11/25/17 15:40 Amorphous Sediment Cancelled 11/25/17 15:40 Urine Bacteria FEW /hpf (NONE SEEN) 11/25/17 15:36 Hyaline Casts Cancelled 11/25/17 15:40 Fine Granular Casts Cancelled 11/25/17 15:40 Coarse Granular Casts Cancelled 11/25/17 15:40 Waxy Casts Cancelled 11/25/17 15:40 RBC Casts Cancelled 11/25/17 15:40 WBC Casts Cancelled 11/25/17 15:40 Other Casts Cancelled 11/25/17 15:40 Urine Mucus FEW /lpf (FEW) 11/25/17 15:36 Urine Other Cancelled 11/25/17 15:40 Urine Trichomonas Cancelled 11/25/17 15:40 Urine Yeast Cancelled 11/25/17 15:40 Urine Sperm Cancelled 11/25/17 15:40 Ur Oval Fat Bodies Cancelled 11/25/17 15:40 - Physical Exam Vitals and I&O: Vital Signs Temp 98.5 F 11/28/17 11:52 Pulse 67 11/28/17 11:52 Resp 20 11/28/17 11:52 BP 149/71 11/28/17 11:52 Pulse Ox 98 11/28/17 11:52 Intake & Output 11/27/17 11/28/17 11/28/17 18:59 06:59 18:59 Intake Total 50 735 Balance 50 735 Weight (lbs) 208 lb 209 lb 209 lb Intake: Intake, IV Amount 50 50 Cefepime 1 gm In Dextrose 50 50 5% 50 ml @ 100 mls/hr IV Q12H [facility] Rx#:[id number] Oral 0 Tube Feeding 585 Other 100 Other: # Voids 4 # Bowel Movements 2 Weight Source Estimated Bedscale Estimated Active Medications: Current Medications Acetaminophen (Tylenol) 325 mg GT Q4HR PRN PRN Reason: Pain(1-3) or Fever >101 Stop: 01/23/18 23:24 Acetaminophen (Tylenol) 650 mg GT Q4H PRN PRN Reason: Pain(4-6) Or Fever above 101 Stop: 01/23/18 23:27 Al Hydrox/Mg Hydrox/Simethicone (Maalox) 30 ml GT Q4HR PRN PRN Reason: GI UPSET Stop: 01/23/18 23:24 Albuterol Sulfate (Albuterol 2.5mg/3ml Neb Ud) 2.5 mg HHN QIDRT [facility] Stop: 01/24/18 06:59 Last Admin: 11/28/17 11:18 Dose: 2.5 mg Ascorbic Acid (Vitamin C) 500 mg GT DAILY [facility] Stop: 01/24/18 08:59 Last Admin: 11/28/17 09:13 Dose: 500 mg Carbidopa/Levodopa (Sinemet 25mg-100 Mg) 1 tab GT Q8HR [facility] Stop: 01/24/18 12:59 Last Admin: 11/28/17 05:11 Dose: 1 tab Clonazepam (Klonopin) 0.5 mg GT Q8HR [facility]; Protocol Stop: 01/25/18 04:59 Last Admin: 11/28/17 05:11 Dose: 0.5 mg Docusate Sodium (Colace) 200 mg GT BID [facility] Stop: 01/24/18 08:59 Last Admin: 11/28/17 09:12 Dose: 200 mg Guaifenesin (Robitussin) 200 mg GT Q4HR PRN PRN Reason: Cough or Congestion Stop: 01/23/18 23:27 Insulin Aspart (Novolog) 0 units SUBQ ACHS [facility]; Protocol Stop: 01/24/18 07:29 Last Admin: 11/28/17 06:46 Dose: Not Given Ipratropium [place] (Atrovent Neb 0.5mg/2.5ml) 0.5 mg HHN QIDRT [facility] Stop: 01/24/18 06:59 Last Admin: 11/28/17 11:18 Dose: 0.5 mg Lactobacillus Rhamnosus (Culturelle 15b) 1 each PO DAILY [facility] Stop: 01/25/18 13:59 Last Admin: 11/28/17 09:13 Dose: 1 each Levofloxacin (Levaquin) 500 mg PO DAILY [facility] Stop: 01/28/18 08:59 Magnesium Hydroxide (Milk Of Magnesia) 30 ml GT Q4HR PRN PRN Reason: GI UPSET Stop: 01/23/18 23:24 Miscellaneous (Probiotic Screen) 1 ea MC PRN PRN PRN Reason: PROTOCOL Stop: 01/25/18 11:01 Ondansetron HCl (Zofran) 4 mg IV Q8H PRN PRN Reason: Nausea / Vomiting Stop: 01/23/18 23:27 Pantoprazole Sodium (Protonix) 40 mg GT DAILY [facility] Stop: 01/24/18 08:59 Last Admin: 11/28/17 09:13 Dose: 40 mg Valproate Sodium (Depakene) 900 mg GT BID [facility]; Protocol Stop: 01/24/18 08:59 Last Admin: 11/28/17 09:12 Dose: 900 mg Zinc Sulfate (Zinc Sulfate) 220 mg GT DAILY [facility] Stop: 01/24/18 08:59 Last Admin: 11/28/17 09:13 Dose: 220 mg General: alert HEENT: NC/AT, PERRLA Neck: Supple Lungs: CTAB Cardiovascular: RRR, Normal S1, Normal S2, without murmur Abdomen: soft, non-tender, non-distended, positive bowel sound Extremities: excoriation Neurological: unable to follow command - Procedures Procedures: Procedures Procedure Code Date BILE TRACT SURGERY PROCEDURE 66820 08/20/16 BYPASS COMMON BILE DUCT TO SMALL INTESTINE, OPEN APPROACH [id number] 08/20/16 CHANGE FEEDING DEVICE IN UP INTEST TRACT, DECORATING MACHINE TENDER APPROACH [id number] 03/10/17 CHANGE GASTROSTOMY TUBE 47791 07/18/16 CHEST X-RAY NEC 87.49 12/05/[address] GASTROSTOMY TUBE 98786 05/19/15 EXTIRPATION OF MATTER FROM STOMACH, ENDO [id number] 05/19/15 FLUOROSCOPY OF GALLBLADDER & BILE DUCT USING L OSM CONTRAST [id number] 08/20/16 FUSE BILE DUCTS AND BOWEL 43966 08/20/16 INDIVID PSYCHOTHERAP NEC 94.39 05/19/08 INITIAL INSERT OF SING CHAMB DEV, RATE RESPONSIVE 37.82 12/05/08 INITIAL INSERT OF TRANS. LEADS INTO VENTRICLE 37.71 12/05/08 INSERT HEART PM VENTRICULAR 86364 12/05/08 INSERTION OF ENDOTRACHEAL AIRWAY INTO TRACHEA, VIA OPENING [id number] 08/20/16 INSERTION OF FEEDING DEVICE INTO STOMACH, ENDO [id number] 05/19/15 INSPECTION OF HEPATOBILIARY DUCT, OPEN APPROACH [id number] 08/20/16 OTHER GROUP THERAPY 94.44 02/13/11 PERCUTANEOUS [ENDOSCOPIC] GASTROSTOMY [PEG] 43.11 10/03/13 RECREATIONAL THERAPY 93.81 02/13/11 RELEASE LARGE INTESTINE, OPEN APPROACH [id number] 08/20/16 REMOVAL OF GALLBLADDER 27041 08/20/16 RESECTION OF GALLBLADDER, OPEN APPROACH [id number] 08/20/16 RESECTION OF RIGHT LARGE INTESTINE, OPEN APPROACH [id number] 08/20/16 RESPIRATORY VENTILATION, 24-96 CONSECUTIVE HOURS [id number] 08/20/16 VENOUS CUTDOWN 38.94 12/05/08 VENT MGMT INPAT INIT DAY 79783 08/20/16 X-RAY & PACEMAKER INSERTION [id number] 12/05/08 Internal Medicine Assmt/Plan - Assessment Assessment: pna abdominal pain htn dementia schizoaffective hx afib pacemaker status hx stroke dm - Plan Plan: continue with ivabx bronchodilators supplemental o2 follow up labs in am continue current plan of care Nutritional Asmnt/Malnutr-PDOC - Dietary Evaluation Malnutrition Findings (Please click <Entered> for more info): Nutritional Asmnt/Malnutrition Start: 11/25/17 15: 10 Text: Status: Complete Freq: Protocol: Document 11/25/17 15:11 SALAZARKISHOREG (Rec: 11/25/17 15:33 KISHORESusie [id number]) Nutritional Asmnt/Malnutrition Patient General Information Nutritional Screening High Risk Diagnosis PNA, abd pain Pertinent Medical Hx/Surgical Hx DM, Asthma/COPD, PUD/GERD, thyroid, Gtube, Parkinson, epilepsy, afib, cardiac pacemaker, dysphagia, oral pharyngeal phase, anemia Subjective Information Pt seen lying in bed at time of visit, awake but not able to communicate. Verified TF running at 65ml/hr at this time. Per nurse note 11/25, abdomen large and non- distended, firm, no residual noted in the morning. Current Diet Order/ Nutrition Support Jevity 1.2 at 65ml/hr x 20hr Pertinent Medications vit C, colace, theragran, protonix, nacl 0.45%, zinc Pertinent Labs 11/24 Cr 0.6, glucose 113 11/25 POC 97-126 Nutritional Hx/Data Height 5 ft 8 in Height (Calculated Centimeters) 172.7 Current Weight (lbs) 209 lb Weight (Calculated Kilograms) 94.8 Weight (Calculated Grams) 33180.8 [place] Body Weight 154 Body Mass Index (BMI) 31.7 Weight Status Obese GI Symptoms GI Symptoms None Last BM none Difficult in: None Usual diet at home Jevity 1.5 at 65ml/hr x 20hr at care facility per chart Skin Integrity/Comment: scar to abd, discoloration to right upper thigh and left lower leg Estimated Nutritional Goals BEE in Kcals: Adj wt of IBW Calories/Kcals/Kg 23-27 Kcals Calculated [id number] Protein: Adj wt of IBW Protein g/k Protein Calculated 76 Fluid: ml 1748-2052ml (1ml/kcal) Nutritional Problem 1. Problem Problem increased nutrition needs Etiology increased metabolic demand Signs/Symptoms: dx of PNA Intervention/Recommendation Comments 1. Continue with current TF regimen. It provides 1560kcal, 72g protein, 1049ml free water, meeting 90% of calorie needs and 95% of protein needs . 2. Monitor TF rate, tolerance, wt, skin integrity and labs 3. F/U as moderate risk in 3-5 days, 11/28-11/30 Expected Outcomes/Goals Expected Outcomes/Goals 1. Pt to meet at least 75% of nutritional needs via nutrition support with tolerance 2. Wt stability, skin to remain intact, labs to approach WNL.
--- NOTE | 2017-11-28 13:46 | GI Progress Note ---
Subjective - Review of Systems Service Date: 11/28/17 Subjective: EVENTS NOTED. DILSHAD GT FEEDS. HAVING BM'S. Objective - Results Result Diagrams: 11/28/17 05:35 11/28/17 05:35 Recent Labs: Laboratory Last Values WBC 5.1 Th/cmm (4.8-10.8) 11/28/17 05:35 RBC 4.37 Mil/cmm (3.80-5.80) 11/28/17 05:35 Hgb 13.1 gm/dL (12-16) 11/28/17 05:35 Hct 39.8 % (41.0-60) L 11/28/17 05:35 MCV 91.1 fl (80-99) 11/28/17 05:35 MCH 29.9 pg (27.0-31.0) 11/28/17 05:35 MCHC Differential 32.8 pg (28.0-36.0) 11/28/17 05:35 RDW 13.6 % (11.5-20.0) 11/28/17 05:35 Plt Count 173 Th/cmm (150-400) 11/28/17 05:35 MPV 12.0 fl 11/28/17 05:35 Neutrophils % 61.2 % (40.0-80.0) 11/28/17 05:35 Lymphocytes % 23.0 % (20.0-50.0) 11/28/17 05:35 Monocytes % 10.7 % (2.0-10.0) H 11/28/17 05:35 Eosinophils % 4.7 % (0.0-5.0) 11/28/17 05:35 Basophils % 0.4 % (0.0-2.0) 11/28/17 05:35 Sodium 138 mEq/L (136-145) 11/28/17 05:35 Potassium 4.4 mEq/L (3.5-5.1) 11/28/17 05:35 Chloride 102 mEq/L (98-107) 11/28/17 05:35 Carbon Dioxide 31.2 mEq/L (21.0-31.0) H 11/28/17 05:35 Anion Gap 9.2 (7.0-16.0) 11/28/17 05:35 BUN 12 mg/dL (7-25) 11/28/17 05:35 Creatinine 0.5 mg/dL (0.7-1.3) L 11/28/17 05:35 Est GFR ( Amer) > 60.0 ml/min (>90) 11/28/17 05:35 Est GFR (Non-Af Amer) > 60.0 ml/min 11/28/17 05:35 BUN/Creatinine Ratio 24.0 11/28/17 05:35 Glucose 100 mg/dL (70-105) 11/28/17 05:35 POC Glucose 112 MG/DL (70 - 105) H 11/28/17 12:07 Calcium 9.6 mg/dL (8.6-10.3) 11/28/17 05:35 Phosphorus 3.9 mg/dL (2.5-5.0) 11/24/17 19:40 Magnesium 2.2 mg/dL (1.9-2.7) 11/24/17 19:40 Total Bilirubin 1.0 mg/dL (0.3-1.0) 11/26/17 05:26 AST 20 U/L (13-39) 11/26/17 05:26 ALT 5 U/L (7-52) L 11/26/17 05:26 Alkaline Phosphatase 83 U/L (34-104) 11/26/17 05:26 Ammonia 48 umol/L (16-53) 11/26/17 05:26 B-Natriuretic Peptide 292.0 pg/mL (5.0-100.0) H 11/26/17 05:26 Total Protein 7.6 gm/dL (6.0-8.3) 11/26/17 05:26 Albumin 3.4 gm/dL (4.2-5.5) L 11/26/17 05:26 Globulin 4.2 gm/dL 11/26/17 05:26 Albumin/Globulin Ratio 0.8 (1.0-1.8) L 11/26/17 05:26 Vitamin B12 858 pg/mL (232-1245) 11/26/17 05:26 Folic Acid >20.0 ng/mL (>3.0) 11/26/17 05:26 TSH 2.55 uIU/ml (0.34-5.60) 11/24/17 19:40 Urine Source CLEAN C 11/25/17 15:36 Urine Color YELLOW 11/25/17 15:36 Urine Clarity CLEAR (CLEAR) 11/25/17 15:36 Urine pH 8.5 (4.6 - 8.0) 11/25/17 15:36 Ur Specific Boyce 1.010 (1.005-1.030) 11/25/17 15:36 Urine Protein TRACE mg/dL (NEGATIVE) 11/25/17 15:36 Urine Glucose (UA) NEGATIVE mg/dL (NEGATIVE) 11/25/17 15:36 Urine Clinitest Cancelled 11/25/17 15:40 Urine Ketones NEGATIVE mg/dL (NEGATIVE) 11/25/17 15:36 Urine Blood NEGATIVE (NEGATIVE) 11/25/17 15:36 Urine Nitrate NEGATIVE (NEGATIVE) 11/25/17 15:36 Urine Bilirubin NEGATIVE (NEGATIVE) 11/25/17 15:36 Urine Urobilinogen 0.2 E.U./dL (0.2 - 1.0) 11/25/17 15:36 Ur Leukocyte Esterase NEGATIVE (NEGATIVE) 11/25/17 15:36 Ur Micro Indicated Cancelled 11/25/17 15:40 Urine RBC 2-5 /hpf (0-5) H 11/25/17 15:36 Urine WBC 0-2 /hpf (0-5) 11/25/17 15:36 Ur Epithelial Cells FEW /lpf (FEW) 11/25/17 15:36 Calcium Oxalate Crystal Cancelled 11/25/17 15:40 Uric Acid Crystals Cancelled 11/25/17 15:40 Triple Phos Crystals Cancelled 11/25/17 15:40 Other Crystals Cancelled 11/25/17 15:40 Amorphous Sediment Cancelled 11/25/17 15:40 Urine Bacteria FEW /hpf (NONE SEEN) 11/25/17 15:36 Hyaline Casts Cancelled 11/25/17 15:40 Fine Granular Casts Cancelled 11/25/17 15:40 Coarse Granular Casts Cancelled 11/25/17 15:40 Waxy Casts Cancelled 11/25/17 15:40 RBC Casts Cancelled 11/25/17 15:40 WBC Casts Cancelled 11/25/17 15:40 Other Casts Cancelled 11/25/17 15:40 Urine Mucus FEW /lpf (FEW) 11/25/17 15:36 Urine Other Cancelled 11/25/17 15:40 Urine Trichomonas Cancelled 11/25/17 15:40 Urine Yeast Cancelled 11/25/17 15:40 Urine Sperm Cancelled 11/25/17 15:40 Ur Oval Fat Bodies Cancelled 11/25/17 15:40 - Physical Exam Vitals and I&O: Vital Signs Temp 98.5 F 11/28/17 11:52 Pulse 67 11/28/17 11:52 Resp 20 11/28/17 11:52 BP 149/71 11/28/17 11:52 Pulse Ox 98 11/28/17 11:52 Intake & Output 11/27/17 11/28/17 11/28/17 18:59 06:59 18:59 Intake Total 50 735 Balance 50 735 Weight (lbs) 94.347 kg 94.801 kg 94.801 kg Intake: Intake, IV Amount 50 50 Cefepime 1 gm In Dextrose 50 50 5% 50 ml @ 100 mls/hr IV Q12H [facility] Rx#:[id number] Oral 0 Tube Feeding 585 Other 100 Other: # Voids 4 # Bowel Movements 2 Weight Source Estimated Bedscale Estimated Active Medications: Current Medications Acetaminophen (Tylenol) 325 mg GT Q4HR PRN PRN Reason: Pain(1-3) or Fever >101 Stop: 01/23/18 23:24 Al Hydrox/Mg Hydrox/Simethicone (Maalox) 30 ml GT Q4HR PRN PRN Reason: GI UPSET Stop: 01/23/18 23:24 Albuterol Sulfate (Albuterol 2.5mg/3ml Neb Ud) 2.5 mg HHN QIDRT [facility] Stop: 01/24/18 06:59 Last Admin: 11/28/17 11:18 Dose: 2.5 mg Ascorbic Acid (Vitamin C) 500 mg GT DAILY [facility] Stop: 01/24/18 08:59 Last Admin: 11/28/17 09:13 Dose: 500 mg Carbidopa/Levodopa (Sinemet 25mg-100 Mg) 1 tab GT Q8HR [facility]IL[facility] Stop: 01/24/18 12:59 Last Admin: 11/28/17 05:11 Dose: 1 tab Clonazepam (Klonopin) 0.5 mg GT Q8HR LILI; Protocol Stop: 01/25/18 04:59 Last Admin: 11/28/17 05:11 Dose: 0.5 mg Docusate Sodium (Colace) 200 mg GT BID [facility] Stop: 01/24/18 08:59 Last Admin: 11/28/17 09:12 Dose: 200 mg Lactobacillus Rhamnosus (Culturelle 15b) 1 each PO DAILY [facility] Stop: 01/25/18 13:59 Last Admin: 11/28/17 09:13 Dose: 1 each Levofloxacin (Levaquin) 500 mg PO DAILY [facility] Stop: 01/28/18 08:59 Magnesium Hydroxide (Milk Of Magnesia) 30 ml GT Q4HR PRN PRN Reason: GI UPSET Stop: 01/23/18 23:24 Pantoprazole Sodium (Protonix) 40 mg GT DAILY [facility] Stop: 01/24/18 08:59 Last Admin: 11/28/17 09:13 Dose: 40 mg Valproate Sodium (Depakene) 900 mg GT BID [facility]; Protocol Stop: 01/24/18 08:59 Last Admin: 11/28/17 09:12 Dose: 900 mg Zinc Sulfate (Zinc Sulfate) 220 mg GT DAILY [facility] Stop: 01/24/18 08:59 Last Admin: 11/28/17 09:13 Dose: 220 mg General: No acute distress HEENT: Atraumatic Neck: Supple Cardiovascular: Regular rate Lungs: Clear to auscultation, Normal air movement Abdomen: Bowel sounds, Soft, Other (INTACT GT), no Tender - Procedures Procedures: Procedures Procedure Code Date BILE TRACT SURGERY PROCEDURE 21459 08/20/16 BYPASS COMMON BILE DUCT TO SMALL INTESTINE, OPEN APPROACH [id number] 08/20/16 CHANGE FEEDING DEVICE IN UP INTEST TRACT, FLEXOGRAPHIC PRINTING MACHINIST APPROACH [id number] 03/10/17 CHANGE GASTROSTOMY TUBE 48335 07/18/16 CHEST X-RAY NEC 87.49 12/05/[address] GASTROSTOMY TUBE 83600 05/19/15 EXTIRPATION OF MATTER FROM STOMACH, ENDO [id number] 05/19/15 FLUOROSCOPY OF GALLBLADDER & BILE DUCT USING L OSM CONTRAST [id number] 08/20/16 FUSE BILE DUCTS AND BOWEL 49525 08/20/16 INDIVID PSYCHOTHERAP NEC 94.39 05/19/08 INITIAL INSERT OF SING CHAMB DEV, RATE RESPONSIVE 37.82 12/05/08 INITIAL INSERT OF TRANS. LEADS INTO VENTRICLE 37.71 08/31/09 INSERT HEART PM VENTRICULAR 19404 12/05/08 INSERTION OF ENDOTRACHEAL AIRWAY INTO TRACHEA, VIA OPENING [id number] 08/20/16 INSERTION OF FEEDING DEVICE INTO STOMACH, ENDO [id number] 05/19/15 INSPECTION OF HEPATOBILIARY DUCT, OPEN APPROACH [id number] 08/20/16 OTHER GROUP THERAPY 94.44 02/13/11 PERCUTANEOUS [ENDOSCOPIC] GASTROSTOMY [PEG] 43.11 10/03/13 RECREATIONAL THERAPY 93.81 02/13/11 RELEASE LARGE INTESTINE, OPEN APPROACH [id number] 08/20/16 REMOVAL OF GALLBLADDER 73279 08/20/16 RESECTION OF GALLBLADDER, OPEN APPROACH [id number] 08/20/16 RESECTION OF RIGHT LARGE INTESTINE, OPEN APPROACH [id number] 08/20/16 RESPIRATORY VENTILATION, 24-96 CONSECUTIVE HOURS [id number] 08/20/16 VENOUS CUTDOWN 38.94 12/05/08 VENT MGMT INPAT INIT DAY 15176 08/20/16 X-RAY & PACEMAKER INSERTION 48438 12/05/08 Assessment/Plan - Assessment Assessment: IMPRESSION: 1. ABD DISTENSION DUE TO FECAL IMPACTION/ILEUS, NOW RESOLVED. 2. DYSPHAGIA S/P GT. RECS: 1. GT FEEDS DILSHAD. 2. STOOL SOFTENERS. 3. GT CARE. GI BE STABLE. WILL SEE INTERMITTENTLY.
--- NOTE | 2017-11-28 21:09 | Discharge Summary ---
DATE OF DISCHARGE: 11/28/2017 DATE OF DISCHARGE: 11/28/2017. FINAL DIAGNOSES: 1. Pneumonia, which has been treated. 2. Abdominal pain, which has resolved. 3. G-tube malfunction, which has been replaced. 4. Hypertension. 5. Dementia. 6. Schizoaffective disorder. 7. History of atrial fibrillation. 8. Pacemaker status. 9. History of stroke and diabetes. HISTORY OF PRESENT ILLNESS: This is a 67-year-old male who is a senior living resident, admitted to the telemetry unit due to 1-day history of weakness and also G-tube malfunction. The patient apparently had an episode of nausea and vomiting and the patient's G-tube feedings were held for about 2-3 hours. For further management, the patient was admitted to the telemetry unit. PHYSICAL EXAMINATION: GENERAL: The patient is an elderly male, awake, alert with some confusion. No apparent distress. VITAL SIGNS: Stable. HEENT: Head is normocephalic and atraumatic. NECK: Supple. No mass. LUNGS: Clear bilaterally. HEART: Regular rate and rhythm. ABDOMEN: Soft and nontender. HOSPITAL COURSE: During the hospital stay, the patient was admitted to the telemetry unit. The patient was kept on empiric IV antibiotics for pneumonia and IV fluids also for hydration. The patient had a GI consultation done. Their plan of care for this patient was to do serial KUBs due to fecal impaction. Eventually, fecal impaction has resolved after giving Colace and Fleet enema. The patient tolerated the G-tube feedings well. The patient's WBCs have within normal limits. No fevers during the hospital stay. For this reason, the patient was stable for discharge. CONDITION UPON DISCHARGE: Fair. DISPOSITION: detention. JOB# [id number]
== END 2017-11-28 18:25 | DRG 393 ==
LOC: ER 18:57 → TELE 22:35
PROVIDERS: ADMIT Internal Medicine; ATTEND Internal Medicine
DX: K94.23 Gastrostomy malfunction (principal); J18.9 Pneumonia, unspecified organism; K56.7 Ileus, unspecified; F03.90 Unspecified dementia, unspecified severity, without behavioral disturbance, psychotic disturbance, mood disturbance, and anxiety; I48.91 Unspecified atrial fibrillation; E11.9 Type 2 diabetes mellitus without complications; K56.41 Fecal impaction; I10 Essential (primary) hypertension; J44.9 Chronic obstructive pulmonary disease, unspecified; K21.9 Gastro-esophageal reflux disease without esophagitis; G20 Parkinson's disease; G40.909 Epilepsy, unspecified, not intractable, without status epilepticus; E03.9 Hypothyroidism, unspecified; K44.9 Diaphragmatic hernia without obstruction or gangrene; F25.9 Schizoaffective disorder, unspecified; R14.0 Abdominal distension (gaseous); R13.10 Dysphagia, unspecified; Y84.8 Other medical procedures as the cause of abnormal reaction of the patient, or of later complication, without mention of misadventure at the time of the procedure; Y82.8 Other medical devices associated with adverse incidents; Z95.0 Presence of cardiac pacemaker; Z82.49 Family history of ischemic heart disease and other diseases of the circulatory system; Z83.3 Family history of diabetes mellitus; Z86.73 Personal history of transient ischemic attack (TIA), and cerebral infarction without residual deficits
CPT/HCPCS: 36415-UA; 70450-TC; 71045-TC; 74000-TC; 80048-TC; 80053-TC; 81001-TC; 82140-TC; 82607-90; 82746-90; 82948-90; 83735-TC; 83880-TC; 84100-TC; 84443-TC; 85025-TC; 87070; 90779; 93005; 94760; J0692; J1815; J2543; J7613; Z7610

== ENCOUNTER 2018-02-02 13:03 | Emergency (ER) | payer MEDICARE, MEDICAID ==
--- NOTE | 2018-02-02 14:20 | Diagnostic Imaging Report ---
Upper GI (Limited) HISTORY: Gastrostomy tube placement Water-soluble contrast was instilled through the patient's gastrostomy tube. The exam demonstrates opacification of gastric lumen with flow contrast into the small bowel. There is mild gastroesophageal reflux. No extravasation. IMPRESSION: 1. Confirmation of gastrostomy tube within the gastric lumen with free flow contrast into the small bowel 2. Mild gastroesophageal reflux
--- NOTE | 2018-02-02 14:23 | ED Physician Chart ---
ED Chief Complaint/HPI - Patient Information Date Seen:: 02/02/18 Time Seen:: 13:22 Chief Complaint:: Leaking g tube History of Present Illness:: Leaking g tube noted this morning. Allergies:: Allergies Allergy/AdvReac Type Severity Reaction Status Date / Time No Known Allergies Allergy Verified 08/20/16 22:10 Vitals:: Vital Signs - 8 hr 02/02/18 13:22 Temp 98.2 F HR 85 RR 22 BP 138/68 O2 Sat % 97 Historian:: Medical Records Review:: Nurse's Note Reviewed, Transfer documents Reviewed ED Review of Systems - Review of Systems General/Constitutional: No fever, No chills, No weight loss, No weakness, No diaphoresis, No edema, No loss of appetite Skin: No skin lesions, No rash, No bruising Head: No headache, No light-headedness Eyes: No loss of vision, No pain, No diplopia ENT: No earache, No nasal drainage, No sore throat, No tinnitus Neck: No neck pain, No swelling, No thyromegaly, No stiffness, No mass noted Cardio Vascular: No chest pain, No palpitations, No PND, No orthopnea, No edema Pulmonary: No SOB, No cough, No sputum, No wheezing GI: No nausea, No vomiting, No diarrhea, No pain, No melena, No hematochezia, No constipation, No hematemesis, Other (leaking G tube) G/U: No dysuria, No frequency, No hematuria Musculoskeletal: No bone or joint pain, No back pain, No muscle pain Endocrine: No polyuria, No polydipsia Psychiatric: No prior psych history, No depression, No anxiety, No suicidal ideation Hematopoietic: No bruising, No lymphadenopathy Allergic/Immuno: No urticaria, No angioedema Neurological: No syncope, No focal symptoms, No weakness, No paresthesia, No headache, No seizure, No dizziness, No confusion, No vertigo ED Past Medical History - Past Medical History Obtainable: No Past Medical History: DM, Asthma/COPD, CVA/TIA, PUD/GERD, Seizures, Thyroid disorder, Other (MUSCLE WEAKNESS, ABNORMAL POSTURE, PARKINSONS, A-FIB, COPD, GASTROSTOMY, VENTRAL HERNIA, PACEMAKER, BPH, SCHIZOPHRENIA, DEPRESSION, PNEUMONIA, DYSPHGIA, MUSCLE WASTING AND ATROPY, LACK OF COORDINATION, TREMOR, DIAPHRAMATIC HERNIA, HYPOTHYROIDISM, ANEMIA, TIA; PARKINSON'S DISEASE) Surgical History: PEG/GTube Psychiatricy History: Schizophrenia Family Medical History - Family Member Mother History Unknown: Yes Ethnicity: Unknown Living Status: Unknown Hx Family Cancer: No Hx Family Coronary Artery Disease: No Hx Family Congestive Heart Failure: Yes Hx Family Hypertension: Yes Hx Family Stroke: No Hx Family Diabetes: Yes Hx Family Seizures: No Hx Family Dementia: No Hx Family AIDS: No Hx Family HIV: No Hx Family COPD: No Hx Family Hepatitis: No Hx Family Psychiatric Problems: No Hx Family Tuberculosis: No ED Physical Exam - Physical Examination General/Constitutional: Awake Other Gen/Cons comments:: chronically ill appearing. Head: Atraumatic Eyes: Lids, conjuctiva normal, PERRL Skin: No rash ENMT: External ears, nose nl Respiratory: Nl effort/Exclusion, Clear to Auscultation Cardio Vascular: RRR, No murmur, gallop, rubs, NL S1 S2 Other GI comments:: g tube with leaking. Neuro/Psych: Mood normal ED Assessment - Assessment General Assessment: gastrograffin study: contrast in stomach and duodenum. - Procedures Procedures:: REPLACEMENT OF GTUBE. BETADINE PREP. [place] JELLY USED. # 22 GRENADIAN G TUBE ( TRIPLE LUMEN) PLACED. GASTROGRAFFIN STUDY PERFORMED VIA G TUBE ED Septic Shock - . Is Septic Shock (SBP<90, OR Lactate>4 mmol\L) present?: No - <6hrs of presentation: Vital Signs: Vital Signs - 8 hr 18 13:22 Temp 98.2 F HR 85 RR 22 BP 138/68 O2 Sat % 97 ED Reassessment (Disposition) - Reassessment Reassessment Condition:: Improved - Diagnosis Diagnosis:: Leaking G tube, new G tube placed in emergency room. - Aftercare/Follow up Instructions Aftercare/Follow-Up Instructions:: Refer to Discharge Instructions - Patient Disposition Discharge/Transfer:: Snf Care - SNF Condition at Disposition:: Stable, Improved
== END 2018-02-02 14:52 | disposition home or self-care (01) ==
LOC: ER 13:03
DX: T85.598A Other mechanical complication of other gastrointestinal prosthetic devices, implants and grafts, initial encounter (principal); J44.9 Chronic obstructive pulmonary disease, unspecified; K21.9 Gastro-esophageal reflux disease without esophagitis; E03.9 Hypothyroidism, unspecified; F20.9 Schizophrenia, unspecified; E11.9 Type 2 diabetes mellitus without complications; Z86.73 Personal history of transient ischemic attack (TIA), and cerebral infarction without residual deficits; Z98.890 Other specified postprocedural states
CPT/HCPCS: Z7502; Z7610

== ENCOUNTER 2018-10-26 09:56 | Inpatient (IN) | payer MEDICARE, MEDICAID ==
[2018-10-26] MEDS ORDERED: Sodium Chloride 0.9% 1,000 ML IV ONE (10:05)
[2018-10-26] MEDS ORDERED: Haloperidol Lactate 5 mg/mL 1mL Vial IM STA (10:06)
[2018-10-26] MEDS ORDERED: Haloperidol Lactate 5 mg/mL 1mL Vial ONE (10:10)
--- NOTE | 2018-10-26 10:13 | ED Physician Chart ---
ED Chief Complaint/HPI - Patient Information Date Seen:: 10/26/18 Time Seen:: 09:50 Chief Complaint:: G-Tube Dysfunction History of Present Illness:: onset x 3 hours of G-Tube dysfunction; no report of trauma, H/As, neck pain, C/P , SOB, Abd. Pain, A/N/V/D/C, fever, chills, or urinary s/s Allergies:: Allergies Allergy/AdvReac Type Severity Reaction Status Date / Time No Known Allergies Allergy Verified 08/20/16 22:10 Historian:: Patient, EMS Review:: Nurse's Note Reviewed, Old Chart Reviewed, EMS run form Reviewed ED Review of Systems - Review of Systems General/Constitutional: No fever, No chills, No weight loss, No weakness, No diaphoresis, No edema, No loss of appetite Skin: No skin lesions, No rash, No bruising Head: No headache, No light-headedness Eyes: No loss of vision, No pain, No diplopia ENT: No earache, No nasal drainage, No sore throat, No tinnitus Neck: No neck pain, No swelling, No thyromegaly, No stiffness, No mass noted Cardio Vascular: No chest pain, No palpitations, No PND, No orthopnea, No edema Pulmonary: No SOB, No cough, No sputum, No wheezing GI: No nausea, No vomiting, No diarrhea, No pain, No melena, No hematochezia, No constipation, No hematemesis G/U: No dysuria, No frequency, No hematuria, No nacturia Musculoskeletal: No bone or joint pain, No back pain, No muscle pain Endocrine: No polyuria, No polydipsia Psychiatric: Prior psych history, Depression, Anxiety, No suicidal ideation, No homicidal ideation, No auditory hallucination, No visual hallucination Hematopoietic: No bruising, No lymphadenopathy Allergic/Immuno: No urticaria, No angioedema Neurological: No syncope, No focal symptoms, No weakness, No paresthesia, No headache, No seizure, No dizziness, Confusion, No vertigo ED Past Medical History - Past Medical History Obtainable: Yes Past Medical History: HTN, DM, Asthma/COPD, CVA/TIA, PUD/GERD, Seizures, Dementia Family History: Diabetes Melitus, HTN Social History: Non Smoker, No Alcohol, No Drug Use, Single, Care Facility Surgical History: PEG/GTube Psychiatricy History: Depression, Schizophrenia, Bipolar, Dementia Medication: Reviewed Family Medical History - Family Member Mother History Unknown: Yes Ethnicity: Unknown Living Status: Unknown Hx Family Cancer: No Hx Family Coronary Artery Disease: No Hx Family Congestive Heart Failure: Yes Hx Family Hypertension: Yes Hx Family Stroke: No Hx Family Diabetes: Yes Hx Family Seizures: No Hx Family Dementia: No Hx Family AIDS: No Hx Family HIV: No Hx Family COPD: No Hx Family Hepatitis: No Hx Family Psychiatric Problems: No Hx Family Tuberculosis: No ED Physical Exam - Physical Examination General/Constitutional: Awake, Well-developed, well-nourished, Alert, No distress, GCS 15, Non-toxic appearing, Ambulatory Head: Atraumatic Eyes: Lids, conjuctiva normal, PERRL, EOMI Skin: Nl inspection, No rash, No skin lesions, No ecchymosis, Well hydrated, No lymphadenopathy ENMT: External ears, nose nl, TM canals nl, Nasal exam nl, Lips, teeth, gums nl , Oropharynx nl, Tonsils nl Neck: Nontender, Full ROM w/o pain, No JVD, No nuchal rigidity, No bruit, No mass, No stridor Respiratory: Nl effort/Exclusion, Clear to Auscultation, No Wheeze/Rhonchi/Rales Cardio Vascular: RRR, No murmur, gallop, rubs, NL S1 S2, Carotid/Femoral/Distal pulses equal bilaterally GI: No tenderness/rebounding/guarding, No organomegaly, No hernia, Normal BS's, Nondistended, No mass/bruits, No McBurney tenderness Other GI comments:: + G-Tube Dysfunction : No CVA tenderness Extremities: No tenderness or effusion, Full ROM, normal strength in all extremities, No edema, Normal digits & nails Neuro/Psych: Alert/oriented, DTR's symmetric, Normal sensory exam, Normal motor strength, Judgement/insight normal, Mood normal, Normal gait, No focal deficits Misc: Normal back, No paraspinal tenderness ED Labs/Radiology/EKG Results - Lab Results Comments:: Reviewed ED Septic Shock - . Is Septic Shock (SBP<90, OR Lactate>4 mmol\L) present?: No ED Reassessment (Disposition) - Reassessment Reassessment Condition:: Improved - Diagnosis Diagnosis:: G-Tube Dysfunction; Dehydration; Hypoalbuminemia; UTI; Sepsis - Aftercare/Follow up Instructions Aftercare/Follow-Up Instructions:: Counseled pt regarding lab results/diagnosis & need follow up, Counseled pt & family regarding lab results/diagnosis & need follow up - Patient Disposition Discharge/Transfer:: Acute Care w/in this hosp Accepting Physician:: Dr. Griffin Time Called:: 1130 Time Responded:: 11:30 Admitted to:: Med/Surg Spoke to:: Dr. Griffin Admitting Medical Physician:: Dr. Griffin Condition at Disposition:: Stable, Improved
[2018-10-26 10:29] LABS: % BASOPHILS 0.1 % (0.0-2.0); % EOSINOPHILS 1.5 % (0.0-5.0); % LYMPHOCYTES 24.2 % (20.0-50.0); % MONOCYTES 7.9 % (2.0-10.0); % NEUTROPHILS 66.3 % (40.0-80.0); EOSINOPHILE ABSOLUTE 0.1 Th/cmm (0.1-0.4); HEMATOCRIT 41.6 % (41.0-60); HEMOGLOBIN 14.5 gm/dL (12-16); LYMPHOCYTE ABSOLUTE 1.5 Th/cmm (1.5-3.0); MEAN CELL VOLUME 90.2 fl (80-99); MEAN CORPUSCULAR HEMOGLOBIN 31.4 pg (27.0-31.0); MEAN CORPUSCULAR HGB CONC 34.8 pg (28.0-36.0); MONOCYTE ABSOLUTE 0.5 Th/cmm (0.3-1.0); NEUTROPHILE ABSOLUTE 4.3 Th/cmm (1.8-8.0); PLATELET COUNT 142 Th/cmm (150-400); RED BLOOD COUNT 4.61 Mil/cmm (3.80-5.80); RED CELL DISTRIBUTION WIDTH 13.8 % (11.5-20.0); WHITE BLOOD COUNT 6.4 Th/cmm (4.8-10.8)
[2018-10-26 10:39] LABS: ALB/GLOB RATIO 0.8 (1.0-1.8); ALBUMIN 3.3 gm/dL (4.2-5.5); ALKALINE PHOSPHATASE 75 U/L (34-104); ANION GAP 7.9 (7.0-16.0); BILIRUBIN,TOTAL 0.9 mg/dL (0.3-1.0); BUN - UREA NITROGEN 32 mg/dL (7-25); CALCIUM SERUM 9.9 mg/dL (8.6-10.3); CARBON DIOXIDE 31.5 mEq/L (21.0-31.0); CHLORIDE 103 mEq/L (98-107); CREATININE - SERUM 0.5 mg/dL (0.7-1.3); CREATININE KINASE 41 U/L (30-223); GFR AFRICAN-AMERICAN > 60.0 ml/min (>90); GFR NON AFRICAN-AMERICAN > 60.0 ml/min; GLUCOSE 109 mg/dL (70-105); POTASSIUM SERUM 4.4 mEq/L (3.5-5.1); SGOT 18 U/L (13-39); SGPT/ALT 6 U/L (7-52); SODIUM SERUM 138 mEq/L (136-145); TOTAL PROTEIN,SERUM 7.4 gm/dL (6.0-8.3)
[2018-10-26 11:05] LABS: URINE SOURCE MIDSTREAM
[2018-10-26 11:08] LABS: URINE BILIRUBIN NEGATIVE (NEGATIVE); URINE BLOOD MODERATE (NEGATIVE); URINE GLUCOSE (UA) NEGATIVE (NEGATIVE); URINE KETONE TRACE mg/dL (NEGATIVE); URINE LEUKOCYTE ESTERASE NEGATIVE (NEGATIVE); URINE MICROSCOPIC INDICATED? YES; URINE NITRATE NEGATIVE (NEGATIVE); URINE PH 7.5 (4.6 - 8.0); URINE PROTEIN NEGATIVE (NEGATIVE)
[2018-10-26 11:22] LABS: URINE CLARITY HAZY (CLEAR); URINE COLOR YELLOW
[2018-10-26 11:23] LABS: URINE BACTERIA FEW /hpf (NONE SEEN); URINE EPITHELIAL CELLS NONE SEEN /lpf (FEW)
[2018-10-26] MEDS ORDERED: cefTRIAXone 1 GM in Sodium Chloride 0.9% 50 ML IV ONE (11:41)
[2018-10-26] MEDS ORDERED: Magnesium Hydroxide (MOM) 30 mL UDC GT PRN (11:50)
[2018-10-26] MEDS ORDERED: Albuterol Nebulizer 2.5mg/3mL HHN PRN (11:51)
[2018-10-26] MEDS ORDERED: Ipratropium Neb 0.5 mg/2.5 mL UD IH PRN (11:51)
[2018-10-26] MEDS: D5-0.9%NS 1,000 ML IV SCH (13:36)
[2018-10-26] MEDS ORDERED: Maalox 30 mL Cup GT PRN (14:00)
--- NOTE | 2018-10-26 14:24 | History & Physical ---
ADMIT DATE: 10/26/2018 CHIEF COMPLAINT: Fever, dehydration, and malfunction G-tube. HISTORY OF PRESENT ILLNESS: This is a 68-year-old male, admitted under my service from previous admission, history of Parkinson's, diabetes, seizure, COPD, trying to eat like disorder secondary to malfunctioning G-tube, unable to get medication for it. The patient was evaluated in the ER and admitted for further management. PAST MEDICAL HISTORY: As mentioned in history present illness. PAST SURGICAL HISTORY: G-tube placement. ALLERGIES: No known drug allergies. MEDICATIONS: Insulin sliding scale, Tylenol, folic acid, Sinemet, Colace, magnesium, multivitamins, Mylanta, omeprazole, Depakote. FAMILY HISTORY: Noncontributory. SOCIAL HISTORY: The patient lives in a chcf. The patient requiring 24-hour total care. REVIEW OF SYSTEMS: This is limited secondary to the patient's mental state. We will try to get more information from nursing staff [facility] facility and ____ follow the patient the nursing facility. PHYSICAL EXAMINATION: VITAL SIGNS: Blood pressure 126/76, respiration 16, pulse 84, temperature 97.6. GENERAL: Elderly male, chronically ill, mildly obese. NECK: Supple. No mass. LUNGS: Equal breath sounds, few rhonchi. HEART: Regular rhythm with systolic ejection murmur. ABDOMEN: Soft, globular. EXTREMITIES: Positive excoriation. NEUROLOGIC: Limited. LABORATORY DATA: WBC 6, hemoglobin 14, platelets 142. Sodium 130, potassium 4.4, BUN 32, creatinine 0.5, blood sugar 109, AST and ALT 18 and 6 respectively, albumin 3.3. UA 10-5 RBC. ASSESSMENT AND PLAN: Acute renal failure, dehydration, renal insufficiency, malfunctioning G-tube, ____, Parkinson's, diabetes, seizure, COPD, general debility, schizoaffective disorder, hematuria and bedridden. Continue on aggressive IV hydration. We will refer the patient to GI. We may consider NG tube placement for now. Continue with current care. Follow consult and recommendations. JOB# [id number]
[2018-10-26] MEDS ORDERED: Diatrizoate Meglumine/Diatri 30 mL Sol PO ONE (14:29)
--- NOTE | 2018-10-26 14:48 | Diagnostic Imaging Report ---
Upper GI with Gastrografin HISTORY: G-tube confirmation COMPARISON: None FINDINGS: Pre Planning Advisor view demonstrates workings feeding tube. Nonspecific bowel gas pattern is noted. Postsurgical changes of the right hemiabdomen are noted. The second image demonstrates contrast opacification of the stomach and small bowel loops. IMPRESSION: Intraluminal confirmation of patient's percutaneous gastric feeding tube.
[2018-10-26] MEDS ORDERED: Non-Formulary Item 1 EA (Amino Acids/Protein Hydrolys [Pro-Stat Sugar Free Liquid] 30 ML) GT SCH (17:00)
[2018-10-26] MEDS: Docusate Sodium 100 mg/10 mL UD GT SCH (18:05)
--- NOTE | 2018-10-26 18:29 | Operative Report ---
DATE OF SURGERY: 10/26/2018 INPATIENT GASTROINTESTINAL PROCEDURE PROCEDURE: G-tube change. REFERRING PHYSICIAN: Dr. Griffin. REASON FOR PROCEDURE: Malfunctioning G-tube, dysphagia. PREOPERATIVE DIAGNOSIS: Malfunctioning G-tube, dysphagia. POSTOPERATIVE DIAGNOSIS: New 20-Djiboutian gastrostomy tube placed. DESCRIPTION OF PROCEDURE: The patient was placed on his back. The old G-tube was identified. It was removed after deflating the internal balloon and pulled out. A new 20-Djiboutian gastrostomy tube was lubricated, the tip inserted through the gastrocutaneous fistula entering into stomach lumen. Internal balloon was inflated with 20 mL of sterile saline. The outer phalange was secured in position. Procedure was then completed. COMPLICATIONS: None. FINDINGS: New 20-Djiboutian gastrostomy tube placed in the stomach. RECOMMENDATIONS: 1. Get upper GI series confirmed placement in the stomach. 2. If it is in stomach, may begin using it.. 3. Check residual every 6 hours and hold greater than 100 mL. Thank you for allowing me to participate. Please call me if any questions. JOB# [id number]
[2018-10-26] MEDS: Heparin Sod 5,000Units/ML 5,000 UNITS/ML VIAL SUBQ SCH (21:12)
[2018-10-27] MEDS: D5-0.9%NS 1,000 ML IV SCH (00:50)
[2018-10-27 05:35] LABS: ALB/GLOB RATIO 0.8 (1.0-1.8); ALKALINE PHOSPHATASE 75 U/L (34-104); ANION GAP 10.8 (7.0-16.0); BILIRUBIN,TOTAL 0.6 mg/dL (0.3-1.0); BUN - UREA NITROGEN 24 mg/dL (7-25); CALCIUM SERUM 9.3 mg/dL (8.6-10.3); CARBON DIOXIDE 27.2 mEq/L (21.0-31.0); CHLORIDE 108 mEq/L (98-107); CREATININE - SERUM 0.4 mg/dL (0.7-1.3); GFR AFRICAN-AMERICAN > 60.0 ml/min (>90); GFR NON AFRICAN-AMERICAN > 60.0 ml/min; GLUCOSE 130 mg/dL (70-105); MAGNESIUM 2.1 mg/dL (1.9-2.7); SGOT 16 U/L (13-39); SGPT/ALT 6 U/L (7-52); TOTAL PROTEIN,SERUM 6.8 gm/dL (6.0-8.3)
[2018-10-27 06:16] LABS: SODIUM SERUM 142 mEq/L (136-145)
[2018-10-27 06:31] LABS: % BASOPHILS 0.1 % (0.0-2.0); % EOSINOPHILS 2.2 % (0.0-5.0); % LYMPHOCYTES 17.4 % (20.0-50.0); % MONOCYTES 6.8 % (2.0-10.0); % NEUTROPHILS 73.5 % (40.0-80.0); EOSINOPHILE ABSOLUTE 0.1 Th/cmm (0.1-0.4); HEMATOCRIT 41.6 % (41.0-60); HEMOGLOBIN 14.1 gm/dL (12-16); LYMPHOCYTE ABSOLUTE 1.1 Th/cmm (1.5-3.0); MEAN CELL VOLUME 92.7 fl (80-99); MEAN CORPUSCULAR HEMOGLOBIN 31.3 pg (27.0-31.0); MEAN CORPUSCULAR HGB CONC 33.8 pg (28.0-36.0); MONOCYTE ABSOLUTE 0.4 Th/cmm (0.3-1.0); NEUTROPHILE ABSOLUTE 4.9 Th/cmm (1.8-8.0); PLATELET COUNT 123 Th/cmm (150-400); RED BLOOD COUNT 4.49 Mil/cmm (3.80-5.80); RED CELL DISTRIBUTION WIDTH 13.6 % (11.5-20.0); WHITE BLOOD COUNT 6.5 Th/cmm (4.8-10.8)
[2018-10-27] MEDS: Docusate Sodium 100 mg/10 mL UD GT SCH ×2 (08:34→16:14)
[2018-10-27] MEDS: Multivitamin Tab GT SCH (08:46)
[2018-10-27] MEDS: Pantoprazole 40 mg/Packet GT SCH (08:46)
[2018-10-27] MEDS: Heparin Sod 5,000Units/ML 5,000 UNITS/ML VIAL SUBQ SCH ×2 (08:47→21:07)
--- NOTE | 2018-10-27 11:30 | Consultation ---
DATE OF CONSULTATION: 10/26/2018 INPATIENT GASTROINTESTINAL CONSULTATION REFERRING PHYSICIAN: Dr. Griffin. REASON FOR CONSULTATION: Malfunctioning G-tube, dysphagia. HISTORY OF PRESENT ILLNESS: A 68-year-old male who has underlying history of Parkinson's, diabetes, seizure, COPD, was at a facility and was sent over because of a malfunctioning G-tube. The patient is otherwise unable to give any meaningful history. PAST MEDICAL HISTORY: Parkinson's, diabetes, seizures, COPD, dysphagia. PAST SURGICAL HISTORY: PEG tube placement. FAMILY HISTORY: Noncontributory. SOCIAL HISTORY: No tobacco, alcohol or IV drug usage. ALLERGIES: None. CURRENT MEDICATIONS: Tylenol, Maalox, vitamin C, Sinemet, Colace, heparin, Atrovent, Ativan, milk of magnesia, Zofran, Protonix, Depakene, Ambien. REVIEW OF SYSTEMS: Unobtainable. PHYSICAL EXAMINATION: VITAL SIGNS: Temperature 96.9, breathing 18, pulse of 65, blood pressure is 109/63, satting 96%. GENERAL: In no apparent distress. EYES: Anicteric. Normal conjunctivae. HEENT: Normocephalic, atraumatic. Moist mucous membranes. NECK: Soft, supple. CHEST: Clear. No effort. CARDIOVASCULAR: Regular rate and rhythm. ABDOMEN: Soft, nontender, nondistended with G-tube. SKIN: Warm, dry. EXTREMITIES: Reveal no cyanosis. PSYCHOLOGICAL: He is somnolent. LABORATORY DATA: Show white count 6.4, hemoglobin 14.5, platelets of 142. INR 1. LFTs within normal limits. Albumin 3.3. IMPRESSION: This is a 68-year-old male with a malfunctioning G-tube and dysphagia. We will likely need to have a G-tube change. PLAN: G-tube to be changed at bedside. Thank you for allowing me to participate. Please call me if any questions. JOB# [id number]
--- NOTE | 2018-10-27 12:05 | Internal Medicine Prog Note ---
Internal Medicine Subjective - Subjective Patient seen and examined:: with staff, chart reviewed Patient is:: asleep, non-verbal, non-interactive, eyes closed, in bed, congested Patient Complaints of:: congestion Per staff patient has:: no adverse event, no episodes of fall, confused Internal Medicine Objective - Results Result Diagrams: 10/27/18 04:30 10/27/18 04:30 Recent Labs: Laboratory Last Values WBC 6.5 Th/cmm (4.8-10.8) 10/27/18 04:30 RBC 4.49 Mil/cmm (3.80-5.80) 10/27/18 04:30 Hgb 14.1 gm/dL (12-16) 10/27/18 04:30 Hct 41.6 % (41.0-60) 10/27/18 04:30 MCV 92.7 fl (80-99) 10/27/18 04:30 MCH 31.3 pg (27.0-31.0) H 10/27/18 04:30 MCHC Differential 33.8 pg (28.0-36.0) 10/27/18 04:30 RDW 13.6 % (11.5-20.0) 10/27/18 04:30 Plt Count 123 Th/cmm (150-400) L 10/27/18 04:30 MPV 10.1 fl 10/27/18 04:30 Neutrophils % 73.5 % (40.0-80.0) 10/27/18 04:30 Lymphocytes % 17.4 % (20.0-50.0) L 10/27/18 04:30 Monocytes % 6.8 % (2.0-10.0) 10/27/18 04:30 Eosinophils % 2.2 % (0.0-5.0) 10/27/18 04:30 Basophils % 0.1 % (0.0-2.0) 10/27/18 04:30 PT 10.4 SECONDS (9.5-11.5) 10/26/18 10:20 INR 1.00 (0.5-1.4) 10/26/18 10:20 PTT (Actin FS) 36.4 SECONDS (26.0-38.0) 10/26/18 10:20 Sodium 142 mEq/L (136-145) 10/27/18 04:30 Potassium 4.0 mEq/L (3.5-5.1) 10/27/18 04:30 Chloride 108 mEq/L (98-107) H 10/27/18 04:30 Carbon Dioxide 27.2 mEq/L (21.0-31.0) 10/27/18 04:30 Anion Gap 10.8 (7.0-16.0) 10/27/18 04:30 BUN 24 mg/dL (7-25) 10/27/18 04:30 Creatinine 0.4 mg/dL (0.7-1.3) L 10/27/18 04:30 Est GFR ( Amer) > 60.0 ml/min (>90) 10/27/18 04:30 Est GFR (Non-Af Amer) > 60.0 ml/min 10/27/18 04:30 BUN/Creatinine Ratio 60.0 10/27/18 04:30 Glucose 130 mg/dL (70-105) H 10/27/18 04:30 POC Glucose 97 MG/DL (70 - 105) 10/27/18 06:43 Whole Bld Lactic Acid 1.27 mmol/L (0.60-1.99) 10/26/18 10:20 Calcium 9.3 mg/dL (8.6-10.3) 10/27/18 04:30 Magnesium 2.1 mg/dL (1.9-2.7) 10/27/18 04:30 Total Bilirubin 0.6 mg/dL (0.3-1.0) 10/27/18 04:30 AST 16 U/L (13-39) 10/27/18 04:30 ALT 6 U/L (7-52) L 10/27/18 04:30 Alkaline Phosphatase 75 U/L (34-104) 10/27/18 04:30 Ammonia 57 umol/L (16-53) H 10/27/18 04:30 Creatine Kinase 41 U/L (30-223) 10/26/18 10:20 Troponin I 0.01 ng/mL (0.01-0.05) 10/26/18 10:20 B-Natriuretic Peptide 185.0 pg/mL (5.0-100.0) H 10/27/18 04:30 Total Protein 6.8 gm/dL (6.0-8.3) 10/27/18 04:30 Albumin 3.0 gm/dL (4.2-5.5) L 10/27/18 04:30 Globulin 3.8 gm/dL 10/27/18 04:30 Albumin/Globulin Ratio 0.8 (1.0-1.8) L 10/27/18 04:30 Urine Source MIDSTREAM 10/26/18 11:00 Urine Color YELLOW 10/26/18 11:00 Urine Clarity HAZY (CLEAR) 10/26/18 11:00 Urine pH 7.5 (4.6 - 8.0) 10/26/18 11:00 Ur Specific [place] 1.015 (1.005-1.030) 10/26/18 11:00 Urine Protein NEGATIVE mg/dL (NEGATIVE) 10/26/18 11:00 Urine Glucose (UA) NEGATIVE mg/dL (NEGATIVE) 10/26/18 11:00 Urine Ketones TRACE mg/dL (NEGATIVE) 10/26/18 11:00 Urine Blood MODERATE (NEGATIVE) H 10/26/18 11:00 Urine Nitrate NEGATIVE (NEGATIVE) 10/26/18 11:00 Urine Bilirubin NEGATIVE (NEGATIVE) 10/26/18 11:00 Urine Urobilinogen 4.0 E.U./dL (0.2 - 1.0) H 10/26/18 11:00 Ur Leukocyte Esterase NEGATIVE (NEGATIVE) 10/26/18 11:00 Urine RBC 10-25 /hpf (0-5) H 10/26/18 11:00 Urine WBC 2-5 /hpf (0-5) 10/26/18 11:00 Ur Epithelial Cells NONE SEEN /lpf (FEW) 10/26/18 11:00 Urine Bacteria FEW /hpf (NONE SEEN) 10/26/18 11:00 - Physical Exam Vitals and I&O: Vital Signs Temp 96.2 F 10/27/18 07:43 Pulse 72 10/27/18 07:43 Resp 18 10/27/18 07:43 BP 104/57 10/27/18 07:43 Pulse Ox 96 10/27/18 07:43 Intake & Output 10/26/18 10/27/18 10/27/18 18:59 06:59 18:59 Intake Total 0 892 Output Total 1 Balance 0 891 Weight (lbs) 83.461 kg 86.455 kg Intake: Intake, IV Amount 892 D5-0.9%Ns 1,000 ml @ 80 892 mls/hr IV .[id number] [facility] Rx #:[id number] Oral 0 Output: Urine/Stool Mix 1 Other: # Voids 2 1 # Bowel Movements 0 1 Weight Source Bedscale Bedscale Active Medications: Current Medications Acetaminophen (Tylenol 650mg/20.3ml Suspension) 650 mg GT Q4HR PRN PRN Reason: Pain or Fever >101 Stop: 12/25/18 11:49 Al Hydrox/Mg Hydrox/Simethicone (Maalox) 30 ml GT Q4H PRN PRN Reason: GI UPSET Stop: 12/25/18 13:59 Albuterol Sulfate (Albuterol 2.5mg/3ml Neb Ud) 2.5 mg HHN Q2HRT PRN PRN Reason: Shortness of Breath or Wheeze Stop: 12/25/18 11:50 Ascorbic Acid (Vitamin C) 500 mg GT DAILY [facility] Stop: 12/26/18 08:59 Last Admin: 10/27/18 08:47 Dose: 500 mg Carbidopa/Levodopa (Sinemet 25mg-100 Mg) 1 tab GT Q8HR LILI Stop: 12/25/18 13:59 Last Admin: 10/27/18 05:41 Dose: 1 tab Docusate Sodium (Colace) 200 mg GT BID [facility] Stop: 12/25/18 16:59 Last Admin: 10/27/18 08:34 Dose: Not Given Heparin Sodium (Porcine) (Heparin) 5,000 units SUBQ Q12HR LILI Stop: 12/25/18 20:59 Last Admin: 10/27/18 08:47 Dose: 5,000 units Dextrose/Sodium Chloride (D5-0.9%Ns) 1,000 mls @ 50 mls/hr IV .Q20H [facility]ILI Stop: 12/26/18 12:14 Ipratropium [place] (Atrovent Neb 0.5mg/2.5ml) 0.5 mg IH Q2HRT PRN PRN Reason: Shortness of Breath or Wheeze Stop: 12/25/18 11:50 Lactulose (Cephulac) 30 gm PO DAILY [facility] Stop: 12/27/18 08:59 Lorazepam (Ativan) 1 mg IV Q4H PRN; Protocol PRN Reason: Seizure Stop: 12/25/18 11:50 Magnesium Hydroxide (Milk Of Magnesia) 30 ml GT DAILY PRN PRN Reason: Constipation Stop: 12/25/18 11:49 Multivitamins/Vitamin C (Theragran) 1 tab GT DAILY [facility] Stop: 12/26/18 08:59 Last Admin: 10/27/18 08:46 Dose: 1 tab Nitroglycerin (Nitrostat) 0.4 mg SL Q5MIN PRN PRN Reason: Chest Pain Stop: 12/25/18 11:50 Ondansetron HCl (Zofran) 4 mg IV Q8H PRN PRN Reason: Nausea / Vomiting Stop: 12/25/18 11:50 Pantoprazole Sodium (Protonix) 20 mg GT DAILY [facility] Stop: 12/26/18 08:59 Last Admin: 10/27/18 08:46 Dose: 20 mg Valproate Sodium (Depakene) 500 mg GT BID LILI; Protocol Stop: 12/25/18 16:59 Last Admin: 10/27/18 08:47 Dose: 500 mg Zolpidem Tartrate (Ambien) 10 mg PO HS PRN PRN Reason: Insomnia Stop: 12/25/18 11:50 General: demented, appears older HEENT: NC/AT, PERRLA Neck: Supple, No JVD Lungs: congested Cardiovascular: RRR, Normal S1, Normal S2, with murmur Abdomen: soft, globular, non-distended, +GT, positive bowel sound Extremities: excoriation, contracture Neurological: no change, unable to follow command - Procedures Procedures: Procedures Procedure Code Date BILE TRACT SURGERY PROCEDURE 62374 08/20/16 BYPASS COMMON BILE DUCT TO SMALL INTESTINE, OPEN APPROACH [id number] 08/20/16 CHANGE FEEDING DEVICE IN UP INTEST TRACT, DISTRIBUTION OPERATIONS MANAGER APPROACH [id number] 03/10/17 CHANGE GASTROSTOMY TUBE 96949 07/18/16 CHEST X-RAY NEC 87.49 12/05/[address] GASTROSTOMY TUBE 55194 05/19/15 EXTIRPATION OF MATTER FROM STOMACH, ENDO [id number] 05/19/15 FLUOROSCOPY OF GALLBLADDER & BILE DUCT USING L OSM CONTRAST [id number] 08/20/16 FUSE BILE DUCTS AND BOWEL 21655 08/20/16 INDIVID PSYCHOTHERAP NEC 94.39 05/19/08 INITIAL INSERT OF SING CHAMB DEV, RATE RESPONSIVE 37.82 12/05/08 INITIAL INSERT OF TRANS. LEADS INTO VENTRICLE 37.71 12/05/08 INSERT HEART PM VENTRICULAR 96946 12/05/08 INSERTION OF ENDOTRACHEAL AIRWAY INTO TRACHEA, VIA OPENING [id number] 08/20/16 INSERTION OF FEEDING DEVICE INTO STOMACH, ENDO [id number] 05/19/15 INSPECTION OF HEPATOBILIARY DUCT, OPEN APPROACH [id number] 08/20/16 OTHER GROUP THERAPY 94.44 02/13/11 PERCUTANEOUS [ENDOSCOPIC] GASTROSTOMY [PEG] 43.11 10/03/13 RECREATIONAL THERAPY 93.81 02/13/11 RELEASE LARGE INTESTINE, OPEN APPROACH [id number] 08/20/16 REMOVAL OF GALLBLADDER 57604 08/20/16 RESECTION OF GALLBLADDER, OPEN APPROACH [id number] 08/20/16 RESECTION OF RIGHT LARGE INTESTINE, OPEN APPROACH [id number] 08/20/16 RESPIRATORY VENTILATION, 24-96 CONSECUTIVE HOURS [id number] 08/20/16 VENOUS CUTDOWN 38.94 12/05/08 VENT MGMT INPAT INIT DAY 30307 08/20/16 X-RAY & PACEMAKER INSERTION 45700 12/05/08 Internal Medicine Assmt/Plan - Assessment Assessment: ASSESSMENT AND PLAN: Acute renal failure, dehydration, renal insufficiency, malfunctioning G-tube, Parkinson's, diabetes, seizure, COPD, general debility, schizoaffective disorder, hematuria and bedridden. - Plan Plan: PLAN: Continue on aggressive IV hydration. We will refer the patient to GI. We may consider NG tube placement for now. Continue with current care. Follow edi consultant recommendations.will correct gemini rader rn
[2018-10-27] MEDS ORDERED: D5-0.9%NS 1,000 ML IV SCH (12:15)
--- NOTE | 2018-10-27 14:15 | GI Progress Note ---
Subjective - Review of Systems Subjective: NO EVENTS GI OBJECTIVE - Results Result Diagrams: 10/27/18 04:30 10/27/18 04:30 Recent Labs: Laboratory Last Values WBC 6.5 Th/cmm (4.8-10.8) 10/27/18 04:30 RBC 4.49 Mil/cmm (3.80-5.80) 10/27/18 04:30 Hgb 14.1 gm/dL (12-16) 10/27/18 04:30 Hct 41.6 % (41.0-60) 10/27/18 04:30 MCV 92.7 fl (80-99) 10/27/18 04:30 MCH 31.3 pg (27.0-31.0) H 10/27/18 04:30 MCHC Differential 33.8 pg (28.0-36.0) 10/27/18 04:30 RDW 13.6 % (11.5-20.0) 10/27/18 04:30 Plt Count 123 Th/cmm (150-400) L 10/27/18 04:30 MPV 10.1 fl 10/27/18 04:30 Neutrophils % 73.5 % (40.0-80.0) 10/27/18 04:30 Lymphocytes % 17.4 % (20.0-50.0) L 10/27/18 04:30 Monocytes % 6.8 % (2.0-10.0) 10/27/18 04:30 Eosinophils % 2.2 % (0.0-5.0) 10/27/18 04:30 Basophils % 0.1 % (0.0-2.0) 10/27/18 04:30 PT 10.4 SECONDS (9.5-11.5) 10/26/18 10:20 INR 1.00 (0.5-1.4) 10/26/18 10:20 PTT (Actin FS) 36.4 SECONDS (26.0-38.0) 10/26/18 10:20 Sodium 142 mEq/L (136-145) 10/27/18 04:30 Potassium 4.0 mEq/L (3.5-5.1) 10/27/18 04:30 Chloride 108 mEq/L (98-107) H 10/27/18 04:30 Carbon Dioxide 27.2 mEq/L (21.0-31.0) 10/27/18 04:30 Anion Gap 10.8 (7.0-16.0) 10/27/18 04:30 BUN 24 mg/dL (7-25) 10/27/18 04:30 Creatinine 0.4 mg/dL (0.7-1.3) L 10/27/18 04:30 Est GFR ( Amer) > 60.0 ml/min (>90) 10/27/18 04:30 Est GFR (Non-Af Amer) > 60.0 ml/min 10/27/18 04:30 BUN/Creatinine Ratio 60.0 10/27/18 04:30 Glucose 130 mg/dL (70-105) H 10/27/18 04:30 POC Glucose 97 MG/DL (70 - 105) 10/27/18 06:43 Whole Bld Lactic Acid 1.27 mmol/L (0.60-1.99) 10/26/18 10:20 Calcium 9.3 mg/dL (8.6-10.3) 10/27/18 04:30 Magnesium 2.1 mg/dL (1.9-2.7) 10/27/18 04:30 Total Bilirubin 0.6 mg/dL (0.3-1.0) 10/27/18 04:30 AST 16 U/L (13-39) 10/27/18 04:30 ALT 6 U/L (7-52) L 10/27/18 04:30 Alkaline Phosphatase 75 U/L (34-104) 10/27/18 04:30 Ammonia 57 umol/L (16-53) H 10/27/18 04:30 Creatine Kinase 41 U/L (30-223) 10/26/18 10:20 Troponin I 0.01 ng/mL (0.01-0.05) 10/26/18 10:20 B-Natriuretic Peptide 185.0 pg/mL (5.0-100.0) H 10/27/18 04:30 Total Protein 6.8 gm/dL (6.0-8.3) 10/27/18 04:30 Albumin 3.0 gm/dL (4.2-5.5) L 10/27/18 04:30 Globulin 3.8 gm/dL 10/27/18 04:30 Albumin/Globulin Ratio 0.8 (1.0-1.8) L 10/27/18 04:30 Urine Source MIDSTREAM 10/26/18 11:00 Urine Color YELLOW 10/26/18 11:00 Urine Clarity HAZY (CLEAR) 10/26/18 11:00 Urine pH 7.5 (4.6 - 8.0) 10/26/18 11:00 Ur Specific [place] 1.015 (1.005-1.030) 10/26/18 11:00 Urine Protein NEGATIVE mg/dL (NEGATIVE) 10/26/18 11:00 Urine Glucose (UA) NEGATIVE mg/dL (NEGATIVE) 10/26/18 11:00 Urine Ketones TRACE mg/dL (NEGATIVE) 10/26/18 11:00 Urine Blood MODERATE (NEGATIVE) H 10/26/18 11:00 Urine Nitrate NEGATIVE (NEGATIVE) 10/26/18 11:00 Urine Bilirubin NEGATIVE (NEGATIVE) 10/26/18 11:00 Urine Urobilinogen 4.0 E.U./dL (0.2 - 1.0) H 10/26/18 11:00 Ur Leukocyte Esterase NEGATIVE (NEGATIVE) 10/26/18 11:00 Urine RBC 10-25 /hpf (0-5) H 10/26/18 11:00 Urine WBC 2-5 /hpf (0-5) 10/26/18 11:00 Ur Epithelial Cells NONE SEEN /lpf (FEW) 10/26/18 11:00 Urine Bacteria FEW /hpf (NONE SEEN) 10/26/18 11:00 - Physical Exam Vitals and I&O: Vital Signs Temp 96.4 F 10/27/18 12:08 Pulse 78 10/27/18 12:08 Resp 18 10/27/18 12:08 BP 177/55 10/27/18 12:08 Pulse Ox 94 10/27/18 12:08 Intake & Output 10/26/18 10/27/18 10/27/18 18:59 06:59 18:59 Intake Total 0 892 Output Total 1 Balance 0 891 Weight (lbs) 83.461 kg 86.455 kg Intake: Intake, IV Amount 892 D5-0.9%Ns 1,000 ml @ 80 892 mls/hr IV .[id number] [facility] Rx #:[id number] Oral 0 Output: Urine/Stool Mix 1 Other: # Voids 2 1 # Bowel Movements 0 1 Weight Source Bedscale Bedscale Active Medications: Current Medications Acetaminophen (Tylenol 650mg/20.3ml Suspension) 650 mg GT Q4HR PRN PRN Reason: Pain or Fever >101 Stop: 12/25/18 11:49 Al Hydrox/Mg Hydrox/Simethicone (Maalox) 30 ml GT Q4H PRN PRN Reason: GI UPSET Stop: 12/25/18 13:59 Albuterol Sulfate (Albuterol 2.5mg/3ml Neb Ud) 2.5 mg HHN Q2HRT PRN PRN Reason: Shortness of Breath or Wheeze Stop: 12/25/18 11:50 Ascorbic Acid (Vitamin C) 500 mg GT DAILY [facility] Stop: 12/26/18 08:59 Last Admin: 10/27/18 08:47 Dose: 500 mg Carbidopa/Levodopa (Sinemet 25mg-100 Mg) 1 tab GT Q8HR [facility]I Stop: 12/25/18 13:59 Last Admin: 10/27/18 13:20 Dose: 1 tab Docusate Sodium (Colace) 200 mg GT BID LILI Stop: 12/25/18 16:59 Last Admin: 10/27/18 08:34 Dose: Not Given Heparin Sodium (Porcine) (Heparin) 5,000 units SUBQ Q12HR [facility] Stop: 12/25/18 20:59 Last Admin: 10/27/18 08:47 Dose: 5,000 units Dextrose/Sodium Chloride (D5-0.9%Ns) 1,000 mls @ 50 mls/hr IV .Q20H [facility]ILI Stop: 12/26/18 12:14 Last Admin: 10/27/18 13:21 Dose: 50 mls/hr Ipratropium [place] (Atrovent Neb 0.5mg/2.5ml) 0.5 mg IH Q2HRT PRN PRN Reason: Shortness of Breath or Wheeze Stop: 12/25/18 11:50 Lactulose (Cephulac) 30 gm PO DAILY [facility] Stop: 12/27/18 08:59 Lorazepam (Ativan) 1 mg IV Q4H PRN; Protocol PRN Reason: Seizure Stop: 12/25/18 11:50 Magnesium Hydroxide (Milk Of Magnesia) 30 ml GT DAILY PRN PRN Reason: Constipation Stop: 12/25/18 11:49 Multivitamins/Vitamin C (Theragran) 1 tab GT DAILY [facility] Stop: 12/26/18 08:59 Last Admin: 10/27/18 08:46 Dose: 1 tab Nitroglycerin (Nitrostat) 0.4 mg SL Q5MIN PRN PRN Reason: Chest Pain Stop: 12/25/18 11:50 Ondansetron HCl (Zofran) 4 mg IV Q8H PRN PRN Reason: Nausea / Vomiting Stop: 12/25/18 11:50 Pantoprazole Sodium (Protonix) 20 mg GT DAILY [facility] Stop: 12/26/18 08:59 Last Admin: 10/27/18 08:46 Dose: 20 mg Valproate Sodium (Depakene) 500 mg GT BID [facility]; Protocol Stop: 12/25/18 16:59 Last Admin: 10/27/18 08:47 Dose: 500 mg Zolpidem Tartrate (Ambien) 10 mg PO HS PRN PRN Reason: Insomnia Stop: 12/25/18 11:50 - Procedures Procedures: Procedures Procedure Code Date BILE TRACT SURGERY PROCEDURE 55528 08/20/16 BYPASS COMMON BILE DUCT TO SMALL INTESTINE, OPEN APPROACH [id number] 08/20/16 CHANGE FEEDING DEVICE IN UP INTEST TRACT, LIBRARIAN SPECIALIST APPROACH [id number] 03/10/17 CHANGE GASTROSTOMY TUBE 67650 07/18/16 CHEST X-RAY NEC 87.49 12/05/[address] GASTROSTOMY TUBE 31749 05/19/15 EXTIRPATION OF MATTER FROM STOMACH, ENDO [id number] 05/19/15 FLUOROSCOPY OF GALLBLADDER & BILE DUCT USING L OSM CONTRAST [id number] 08/20/16 FUSE BILE DUCTS AND BOWEL 92363 08/20/16 INDIVID PSYCHOTHERAP NEC 94.39 05/19/08 INITIAL INSERT OF SING CHAMB DEV, RATE RESPONSIVE 37.82 12/05/08 INITIAL INSERT OF TRANS. LEADS INTO VENTRICLE 37.71 12/05/08 INSERT HEART PM VENTRICULAR 37618 12/05/08 INSERTION OF ENDOTRACHEAL AIRWAY INTO TRACHEA, VIA OPENING [id number] 08/20/16 INSERTION OF FEEDING DEVICE INTO STOMACH, ENDO [id number] 05/19/15 INSPECTION OF HEPATOBILIARY DUCT, OPEN APPROACH [id number] 08/20/16 OTHER GROUP THERAPY 94.44 02/13/11 PERCUTANEOUS [ENDOSCOPIC] GASTROSTOMY [PEG] 43.11 10/03/13 RECREATIONAL THERAPY 93.81 02/13/11 RELEASE LARGE INTESTINE, OPEN APPROACH [id number] 08/20/16 REMOVAL OF GALLBLADDER 32605 08/20/16 RESECTION OF GALLBLADDER, OPEN APPROACH [id number] 08/20/16 RESECTION OF RIGHT LARGE INTESTINE, OPEN APPROACH [id number] 08/20/16 RESPIRATORY VENTILATION, 24-96 CONSECUTIVE HOURS [id number] 08/20/16 VENOUS CUTDOWN 38.94 12/05/08 VENT MGMT INPAT INIT DAY 51674 08/20/16 X-RAY & PACEMAKER INSERTION 30346 12/05/08 Assessment/Plan - Problem List Patient Problems: All Active Problems GASTRIC FEEDING TUBE MALFUNCTION (Acute) - Assessment Assessment: 68 YO MALE WITH DYSPHAGIA AND MALFUNCTION GT GT WAS CHANGED KUB SHOWED GT IN THE STOMACH 1.CONT SUPP CARE 2.CONT TUBE FEEDS DILSHAD
[2018-10-28] MEDS ORDERED: Lactulose 10 Gm/15 mL 30mL UDC PO SCH (09:00)
[2018-10-28 10:42] LABS: % BASOPHILS 0.2 % (0.0-2.0); LYMPHOCYTE ABSOLUTE 1.6 Th/cmm (1.5-3.0); MONOCYTE ABSOLUTE 0.4 Th/cmm (0.3-1.0); WHITE BLOOD COUNT 4.7 Th/cmm (4.8-10.8)
[2018-10-28 10:43] LABS: % EOSINOPHILS 2.5 % (0.0-5.0); % LYMPHOCYTES 33.6 % (20.0-50.0); % MONOCYTES 8.8 % (2.0-10.0); % NEUTROPHILS 54.9 % (40.0-80.0); EOSINOPHILE ABSOLUTE 0.1 Th/cmm (0.1-0.4); HEMATOCRIT 41.7 % (41.0-60); HEMOGLOBIN 14.1 gm/dL (12-16); MEAN CELL VOLUME 92.7 fl (80-99); MEAN CORPUSCULAR HEMOGLOBIN 31.3 pg (27.0-31.0); MEAN CORPUSCULAR HGB CONC 33.8 pg (28.0-36.0); NEUTROPHILE ABSOLUTE 2.6 Th/cmm (1.8-8.0); PLATELET COUNT 138 Th/cmm (150-400); RED CELL DISTRIBUTION WIDTH 13.8 % (11.5-20.0)
[2018-10-28 11:18] LABS: BUN - UREA NITROGEN 16 mg/dL (7-25); CHLORIDE 104 mEq/L (98-107); GLUCOSE 103 mg/dL (70-105); POTASSIUM SERUM 3.9 mEq/L (3.5-5.1); SODIUM SERUM 140 mEq/L (136-145)
[2018-10-28 11:19] LABS: CALCIUM SERUM 9.6 mg/dL (8.6-10.3); CREATININE - SERUM 0.5 mg/dL (0.7-1.3); GFR AFRICAN-AMERICAN > 60.0 ml/min (>90); GFR NON AFRICAN-AMERICAN > 60.0 ml/min
[2018-10-28 11:21] LABS: ANION GAP 11.6 (7.0-16.0); CARBON DIOXIDE 28.3 mEq/L (21.0-31.0)
[2018-10-28] MEDS: Pantoprazole 40 mg/Packet GT SCH (11:29)
[2018-10-28] MEDS: Multivitamin Tab GT SCH (11:29)
[2018-10-28] MEDS: Heparin Sod 5,000Units/ML 5,000 UNITS/ML VIAL SUBQ SCH (11:32)
[2018-10-28] MEDS: Docusate Sodium 100 mg/10 mL UD GT SCH (12:04)
--- NOTE | 2018-10-28 12:48 | Discharge Summary ---
DATE OF DISCHARGE: 10/27/2018 CHIEF COMPLAINT: G-tube, dehydration as a result. FINAL DIAGNOSES: Dehydration/acute renal insufficiency, question G-tube, Parkinson's, diabetes, seizure, COPD, history of DVTs, psych disorder, hematuria, and bedridden. HISTORY: This is a 68-year-old male with multiple medical problems including Parkinson, diabetes, seizures, COPD, dysphagia, brought in secondary to malfunctioning G-tube, unable to provide nutritional fluid and his medication. The patient was brought to the ER, unable to G-tube replace and admitted for management. PHYSICAL EXAMINATION: VITAL SIGNS: Blood pressure 170/93, respirations 18, pulse 84, temperature 96.8. GENERAL: Elderly male who appears his stated age. NECK: Supple. No mass. LUNGS: Equal breath sounds, few rhonchi. HEART: Regular rate and rhythm. Systolic ejection murmur. ABDOMEN: Soft, globular. EXTREMITIES: Positive excoriation with G-tube. HOSPITAL COURSE: The patient was admitted to medical telemetry, continue on oxygen and bronchodilator treatment, IV hydration. The patient referred to GI. Electrolytes were corrected. The patient is able to be stabilized and cleared for discharge. CONDITION ON DISCHARGE: Fair. DISCHARGE INSTRUCTIONS: The patient to continue with current care. The patient will be [facility]. JOB# [id number]
--- NOTE | 2018-10-28 13:07 | GI Progress Note ---
Subjective - Review of Systems Subjective: NO EVENTS GI OBJECTIVE - Results Result Diagrams: 10/28/18 06:45 10/28/18 06:45 Recent Labs: Laboratory Last Values WBC 4.7 Th/cmm (4.8-10.8) L 10/28/18 06:45 RBC 4.50 Mil/cmm (3.80-5.80) 10/28/18 06:45 Hgb 14.1 gm/dL (12-16) 10/28/18 06:45 Hct 41.7 % (41.0-60) 10/28/18 06:45 MCV 92.7 fl (80-99) 10/28/18 06:45 MCH 31.3 pg (27.0-31.0) H 10/28/18 06:45 MCHC Differential 33.8 pg (28.0-36.0) 10/28/18 06:45 RDW 13.8 % (11.5-20.0) 10/28/18 06:45 Plt Count 138 Th/cmm (150-400) L 10/28/18 06:45 MPV 11.2 fl 10/28/18 06:45 Neutrophils % 54.9 % (40.0-80.0) 10/28/18 06:45 Lymphocytes % 33.6 % (20.0-50.0) 10/28/18 06:45 Monocytes % 8.8 % (2.0-10.0) 10/28/18 06:45 Eosinophils % 2.5 % (0.0-5.0) 10/28/18 06:45 Basophils % 0.2 % (0.0-2.0) 10/28/18 06:45 PT 10.4 SECONDS (9.5-11.5) 10/26/18 10:20 INR 1.00 (0.5-1.4) 10/26/18 10:20 PTT (Actin FS) 36.4 SECONDS (26.0-38.0) 10/26/18 10:20 Sodium 140 mEq/L (136-145) 10/28/18 06:45 Potassium 3.9 mEq/L (3.5-5.1) 10/28/18 06:45 Chloride 104 mEq/L (98-107) 10/28/18 06:45 Carbon Dioxide 28.3 mEq/L (21.0-31.0) 10/28/18 06:45 Anion Gap 11.6 (7.0-16.0) 10/28/18 06:45 BUN 16 mg/dL (7-25) 10/28/18 06:45 Creatinine 0.5 mg/dL (0.7-1.3) L 10/28/18 06:45 Est GFR ( Amer) > 60.0 ml/min (>90) 10/28/18 06:45 Est GFR (Non-Af Amer) > 60.0 ml/min 10/28/18 06:45 BUN/Creatinine Ratio 32.0 10/28/18 06:45 Glucose 103 mg/dL (70-105) 10/28/18 06:45 POC Glucose 97 MG/DL (70 - 105) 10/27/18 06:43 Whole Bld Lactic Acid 1.27 mmol/L (0.60-1.99) 10/26/18 10:20 Calcium 9.6 mg/dL (8.6-10.3) 10/28/18 06:45 Magnesium 2.1 mg/dL (1.9-2.7) 10/27/18 04:30 Total Bilirubin 0.6 mg/dL (0.3-1.0) 10/27/18 04:30 AST 16 U/L (13-39) 10/27/18 04:30 ALT 6 U/L (7-52) L 10/27/18 04:30 Alkaline Phosphatase 75 U/L (34-104) 10/27/18 04:30 Ammonia 57 umol/L (16-53) H 10/27/18 04:30 Creatine Kinase 41 U/L (30-223) 10/26/18 10:20 Troponin I 0.01 ng/mL (0.01-0.05) 10/26/18 10:20 B-Natriuretic Peptide 185.0 pg/mL (5.0-100.0) H 10/27/18 04:30 Total Protein 6.8 gm/dL (6.0-8.3) 10/27/18 04:30 Albumin 3.0 gm/dL (4.2-5.5) L 10/27/18 04:30 Globulin 3.8 gm/dL 10/27/18 04:30 Albumin/Globulin Ratio 0.8 (1.0-1.8) L 10/27/18 04:30 Vitamin B12 1122 pg/mL (232-1245) 10/27/18 04:30 Folic Acid 19.0 ng/mL (>3.0) 10/27/18 04:30 Urine Source MIDSTREAM 10/26/18 11:00 Urine Color YELLOW 10/26/18 11:00 Urine Clarity HAZY (CLEAR) 10/26/18 11:00 Urine pH 7.5 (4.6 - 8.0) 10/26/18 11:00 Ur Specific [place] 1.015 (1.005-1.030) 10/26/18 11:00 Urine Protein NEGATIVE mg/dL (NEGATIVE) 10/26/18 11:00 Urine Glucose (UA) NEGATIVE mg/dL (NEGATIVE) 10/26/18 11:00 Urine Ketones TRACE mg/dL (NEGATIVE) 10/26/18 11:00 Urine Blood MODERATE (NEGATIVE) H 10/26/18 11:00 Urine Nitrate NEGATIVE (NEGATIVE) 10/26/18 11:00 Urine Bilirubin NEGATIVE (NEGATIVE) 10/26/18 11:00 Urine Urobilinogen 4.0 E.U./dL (0.2 - 1.0) H 10/26/18 11:00 Ur Leukocyte Esterase NEGATIVE (NEGATIVE) 10/26/18 11:00 Urine RBC 10-25 /hpf (0-5) H 10/26/18 11:00 Urine WBC 2-5 /hpf (0-5) 10/26/18 11:00 Ur Epithelial Cells NONE SEEN /lpf (FEW) 10/26/18 11:00 Urine Bacteria FEW /hpf (NONE SEEN) 10/26/18 11:00 - Physical Exam Vitals and I&O: Vital Signs Temp 96.8 F 10/28/18 12:00 Pulse 84 10/28/18 12:00 Resp 18 10/28/18 12:00 BP 117/93 10/28/18 12:00 Pulse Ox 98 10/28/18 12:00 Intake & Output 10/27/18 10/28/18 10/28/18 18:59 06:59 18:59 Intake Total 325 Balance 325 Weight (lbs) 86.228 kg Intake: Tube Feeding 325 Other: # Voids 5 # Bowel Movements 2 Stool Characteristics Soft Brown Weight Source Bedscale Active Medications: Current Medications Acetaminophen (Tylenol 650mg/20.3ml Suspension) 650 mg GT Q4HR PRN PRN Reason: Pain or Fever >101 Stop: 12/25/18 11:49 Al Hydrox/Mg Hydrox/Simethicone (Maalox) 30 ml GT Q4H PRN PRN Reason: GI UPSET Stop: 12/25/18 13:59 Albuterol Sulfate (Albuterol 2.5mg/3ml Neb Ud) 2.5 mg HHN Q2HRT PRN PRN Reason: Shortness of Breath or Wheeze Stop: 12/25/18 11:50 Ascorbic Acid (Vitamin C) 500 mg GT DAILY [facility] Stop: 12/26/18 08:59 Last Admin: 10/28/18 11:29 Dose: 500 mg Carbidopa/Levodopa (Sinemet 25mg-100 Mg) 1 tab GT Q8HR [facility] Stop: 12/25/18 13:59 Last Admin: 10/27/18 21:07 Dose: 1 tab Docusate Sodium (Colace) 200 mg GT BID [facility] Stop: 12/25/18 16:59 Last Admin: 10/28/18 12:04 Dose: Not Given Heparin Sodium (Porcine) (Heparin) 5,000 units SUBQ Q12HR [facility] Stop: 12/25/18 20:59 Last Admin: 10/28/18 11:32 Dose: 5,000 units Dextrose/Sodium Chloride (D5-0.9%Ns) 1,000 mls @ 50 mls/hr IV .Q20H [facility] Stop: 12/26/18 12:14 Last Admin: 10/27/18 13:21 Dose: 50 mls/hr Ipratropium [place] (Atrovent Neb 0.5mg/2.5ml) 0.5 mg IH Q2HRT PRN PRN Reason: Shortness of Breath or Wheeze Stop: 12/25/18 11:50 Lactulose (Cephulac) 30 gm PO DAILY [facility] Stop: 12/27/18 08:59 Last Admin: 10/28/18 11:30 Dose: 30 gm Lorazepam (Ativan) 1 mg IV Q4H PRN; Protocol PRN Reason: Seizure Stop: 12/25/18 11:50 Magnesium Hydroxide (Milk Of Magnesia) 30 ml GT DAILY PRN PRN Reason: Constipation Stop: 12/25/18 11:49 Multivitamins/Vitamin C (Theragran) 1 tab GT DAILY [facility] Stop: 12/26/18 08:59 Last Admin: 10/28/18 11:29 Dose: 1 tab Nitroglycerin (Nitrostat) 0.4 mg SL Q5MIN PRN PRN Reason: Chest Pain Stop: 12/25/18 11:50 Ondansetron HCl (Zofran) 4 mg IV Q8H PRN PRN Reason: Nausea / Vomiting Stop: 12/25/18 11:50 Pantoprazole Sodium (Protonix) 20 mg GT DAILY [facility] Stop: 12/26/18 08:59 Last Admin: 10/28/18 11:29 Dose: 20 mg Valproate Sodium (Depakene) 500 mg GT BID [facility]; Protocol Stop: 12/25/18 16:59 Last Admin: 10/28/18 11:29 Dose: 500 mg Zolpidem Tartrate (Ambien) 10 mg PO HS PRN PRN Reason: Insomnia Stop: 12/25/18 11:50 Last Admin: 10/27/18 21:09 Dose: 10 mg - Procedures Procedures: Procedures Procedure Code Date BILE TRACT SURGERY PROCEDURE 05297 08/20/16 BYPASS COMMON BILE DUCT TO SMALL INTESTINE, OPEN APPROACH [id number] 08/20/16 CHANGE FEEDING DEVICE IN UP INTEST TRACT, MOLD MACHINE OPERATOR APPROACH [id number] 03/10/17 CHANGE GASTROSTOMY TUBE 23933 07/18/16 CHEST X-RAY NEC 87.49 12/05/[address] GASTROSTOMY TUBE 14984 05/19/15 EXTIRPATION OF MATTER FROM STOMACH, ENDO [id number] 05/19/15 FLUOROSCOPY OF GALLBLADDER & BILE DUCT USING L OSM CONTRAST [id number] 08/20/16 FUSE BILE DUCTS AND BOWEL 12679 08/20/16 INDIVID PSYCHOTHERAP NEC 94.39 05/19/08 INITIAL INSERT OF SING CHAMB DEV, RATE RESPONSIVE 37.82 12/05/08 INITIAL INSERT OF TRANS. LEADS INTO VENTRICLE 37.71 12/05/08 INSERT HEART PM VENTRICULAR 71353 12/05/08 INSERTION OF ENDOTRACHEAL AIRWAY INTO TRACHEA, VIA OPENING [id number] 08/20/16 INSERTION OF FEEDING DEVICE INTO STOMACH, ENDO [id number] 05/19/15 INSPECTION OF HEPATOBILIARY DUCT, OPEN APPROACH [id number] 08/20/16 OTHER GROUP THERAPY 94.44 02/13/11 PERCUTANEOUS [ENDOSCOPIC] GASTROSTOMY [PEG] 43.11 10/03/13 RECREATIONAL THERAPY 93.81 02/13/11 RELEASE LARGE INTESTINE, OPEN APPROACH [id number] 08/20/16 REMOVAL OF GALLBLADDER 42700 08/20/16 RESECTION OF GALLBLADDER, OPEN APPROACH [id number] 08/20/16 RESECTION OF RIGHT LARGE INTESTINE, OPEN APPROACH [id number] 08/20/16 RESPIRATORY VENTILATION, 24-96 CONSECUTIVE HOURS [id number] 08/20/16 VENOUS CUTDOWN 38.94 12/05/08 VENT MGMT INPAT INIT DAY 37616 08/20/16 X-RAY & PACEMAKER INSERTION 52005 12/05/08 Assessment/Plan - Problem List Patient Problems: All Active Problems GASTRIC FEEDING TUBE MALFUNCTION (Acute) - Assessment Assessment: 68 YO MALE WITH DYSPHAGIA AND MALFUNCTION GT GT WAS CHANGED KUB SHOWED GT IN THE STOMACH 1.CONT SUPP CARE 2.CONT TUBE FEEDS DILSHAD
== END 2018-10-28 16:43 | DRG 393 ==
LOC: ER 09:56 → TELE 11:42
PROVIDERS: ADMIT Internal Medicine; ATTEND Internal Medicine
PROC: 0D20XUZ Change Feeding Device in Upper Intestinal Tract, External Approach (ICD-10-PCS; principal; 2018-10-26)
DX: K94.23 Gastrostomy malfunction (principal); A41.9 Sepsis, unspecified organism; R53.2 Functional quadriplegia; N17.9 Acute kidney failure, unspecified; N39.0 Urinary tract infection, site not specified; G20 Parkinson's disease; E11.9 Type 2 diabetes mellitus without complications; J44.9 Chronic obstructive pulmonary disease, unspecified; I10 Essential (primary) hypertension; K21.9 Gastro-esophageal reflux disease without esophagitis; R56.9 Unspecified convulsions; E86.0 Dehydration; F02.80 Dementia in other diseases classified elsewhere, unspecified severity, without behavioral disturbance, psychotic disturbance, mood disturbance, and anxiety; F25.9 Schizoaffective disorder, unspecified; R31.9 Hematuria, unspecified; R13.10 Dysphagia, unspecified; Y83.3 Surgical operation with formation of external stoma as the cause of abnormal reaction of the patient, or of later complication, without mention of misadventure at the time of the procedure; Y92.89 Other specified places as the place of occurrence of the external cause; Z74.01 Bed confinement status; Z86.73 Personal history of transient ischemic attack (TIA), and cerebral infarction without residual deficits
CPT/HCPCS: 36415-UA; 80048-TC; 80053-TC; 81001-TC; 82140-TC; 82550-TC; 82607-90; 82746-90; 82948-90; 83605; 83735-TC; 83880-TC; 84484-TC; 85025-TC; 85610-TC; 85730-TC; 87086-90; 94760; J0696; J1200; J1630; J1644; J2060; J7030; J7042; Z7610